=== PATIENT | female | born 1935 | race Caucasian/White ===

== ENCOUNTER 2016-07-10 06:19 | Inpatient (IN) | payer MEDICARE, OTHER ==
[2016-07-10] VITALS (52 sets, daily range): BP systolic 91–119; BP diastolic 45–90; PULSE 69–86; RESP 11–25; TEMP 97.8; Ht 152.4 cm; Wt 64.4 kg
[~2016-07-10] VITALS: Ht 152.4 cm; Wt 64.4 kg
[~2016-07-10 06:19] MED LIST: ASPI81TA3 PO; ATOR10TA65 PO; CLOP75TA27 PO; DILT30TA30 PO; ERGO500037 PO; ESOM40SU PO; FER325 PO; FURO40TA4 PO; HYDR-906 PO; IPRA4AER INHALATION; ISOS30TA5 PO; LEVO500T72 PO; LORA0.5T PO; MAGN400T28 PO; NEPH PO; RANI300T PO; VIT1CAPS15 PO
[2016-07-10] MEDS ORDERED: SODIUM CHLORIDE 0.9% 1L BAG IV* STA (06:30)
[2016-07-10] MEDS ORDERED: ALBUTEROL/IPRATROPIUM (NEB) 3 ML AMP HHN STA (06:36)
[2016-07-10] MEDS ORDERED: PROPOFOL 100 ML IV SCH (07:00)
[2016-07-10] MEDS ORDERED: SUCCINYLCHOLINE CHLORIDE 100 MG/5 ML SYG IV ONE (07:00)
[2016-07-10] MEDS ORDERED: MIDAZOLAM 1 MG/ML 5 ML INJ IV ONE (07:00)
[2016-07-10] MEDS ORDERED: PROPOFOL 100 ML IV ONE (07:00)
[2016-07-10 07:07] LABS: HEMATOCRIT 32.9 % (37.0-47.0); HEMOGLOBIN 10.8 g/dl (12.0-16.0); MEAN CORPUSCULAR HEMOGLOBIN 33.6 pg (29.0-33.0); MEAN CORPUSCULAR HGB CONC 32.7 g/dl (32.0-37.0); MEAN CORPUSCULAR VOLUME 102.9 fl (82.0-101.0); MEAN PLATELET VOLUME 8.4 fl (7.4-10.4); PLATELET COUNT 256 10^3/UL (140-440); RED CELL DISTRIBUTION WIDTH 13.5 % (11.5-14.5); UNCORRECTED WBC 15.2 10^3/ul (4.8-10.8); WHITE BLOOD COUNT 15.2 10^3/ul (4.8-10.8)
[2016-07-10 07:13] LABS: CONDITION 1; LH ANALYZER COMMENTS 1
[2016-07-10 07:22] LABS: INR 1.08; PT RATIO 1.1
[2016-07-10 07:23] LABS: PARTIAL THROMBOPLASTIN TIME 30.5 Sec (25.0-35.0)
[2016-07-10 07:35] LABS: POTASSIUM 4.7 mmol/L (3.5-5.1)
[2016-07-10 07:37] LABS: ALBUMIN/GLOBULIN RATIO 1.08; BILIRUBIN,INDIRECT 0.1 mg/dl (0-1.1); BILIRUBIN,TOTAL 0.1 mg/dl (0.2-1.3); CREATININE 1.96 mg/dl (0.44-1.00); TOTAL PROTEIN 7.7 g/dl (6.1-8.1)
[2016-07-10 07:38] LABS: CALCIUM 8.9 mg/dl (8.4-10.2)
[2016-07-10] MEDS ORDERED: CEFEPIME 2GM/50 ML (PMX) 50 ML IVPB STA (07:42)
[2016-07-10] MEDS ORDERED: NORepinephrine 8MG/250 ML (PMX 250 ML IV STA (07:42)
[2016-07-10 07:49] LABS: TROPONIN-I 0.024 ng/ml (0.00-0.12)
--- NOTE | 2016-07-10 07:54 | RADRPT ---
PROCEDURE: XR Chest. CLINICAL INDICATION: Intubated TECHNIQUE: An AP view of the chest was obtained. COMPARISON: Chest x-ray dated 05/20/2016 FINDINGS: Endotracheal tube tip is 2.2 cm above the cathy. There is prominence of the interstitial markings. No pleural effusion or pneumothorax is seen. The re is an ill-defined nodular density in the right lower lobe. The cardiomediastinal silhouette is m ildly enlarged . Calcifications are seen within the aortic arch. The osseous structures demonstrate senescent changes. IMPRESSION: 1. Mild prominence of the interstitial markings, may reflect mild underlying interstitial edema or chronic lung changes. No significant interval change. 2. Ill-defined nodular density in the right lower lobe, not present on the prior examination from 1 07/21/2015. If findings persist on follow-up imaging, a CT of the chest can be performed for further evaluation. 3. Mild cardiomegaly and aortic atherosclerosis. 4. Endotracheal tube tip 2.2 cm above the cathy. RPTAT: HH .No Marina MD, MD Date Time Electronically viewed and signed by .No Marina MD, on 07/10/2016 07:54 .G/
[2016-07-10] MEDS ORDERED: VANCOMYCIN 1 GM (PMX) 250 ML IVPB ONE (08:00)
[2016-07-10 08:07] LABS: D-DIMER 782.33 ng/ml (<460)
[2016-07-10 08:36] LABS: ADD UMIC YES; URINE BILIRUBIN (Dip) NEGATIVE (NEGATIVE); URINE BLOOD (Dip) 3+ (NEGATIVE); URINE COLOR LT. YELLOW (YELLOW); URINE GLUCOSE (Dip) NEGATIVE (NEGATIVE); URINE KETONES (Dip) NEGATIVE (NEGATIVE); URINE LEUKOCYTE ESTERASE (Dip) NEGATIVE (NEGATIVE); URINE NITRITE (Dip) NEGATIVE (NEGATIVE); URINE TOTAL PROTEIN (Dip) 2+ (NEGATIVE); URINE UROBILINOGEN (Dip) 0.2 E.U./dL (0.1-1.0)
[2016-07-10 09:53] LABS: AADO2 Arterial 105.5 mmHg (7.0-24.0); Arterial Base Excess -6.8 mmol/L (-3.0-3); Arterial COHb 0.3 % (0.0-3.0); Arterial Fraction of Oxyhgb 98.9 % (93.0-99.0); Arterial HCO3 15.2 mmol/L (22.0-26.0); Arterial MetHb 0.1 % (0.0-1.5); MODE VENT - AC
--- NOTE | 2016-07-10 10:43 | RADRPT ---
PROCEDURE: CT Brain without contrast. CLINICAL INDICATION: Neurologic deficit TECHNIQUE: A CT of the brain was performed on multidetector high-resolution CT scanner utilizing a xial sections from the skull base through the vertex without contrast. One or more of the following dose reduction techniques were used: Automated exposure control, Adjustment of the mA and/or kV acc ording to patient size, and/or use of iterative reconstruction technique. DOSE: CTDI = 42 mGy and the DLP = 720 mGy-cm. COMPARISON: None available FINDINGS: No acute intracranial hemorrhage, significant mass effect or midline shift. Patchy hypoattenuation o f the cerebral white matter is age indeterminate but may represent moderate subacute to chronic micr ovascular ischemic changes. Atherosclerotic calcifications of the cavernous segments of the internal carotid arteries are seen. Prominence of the cortical sulci and ventricles are related to mild cer ebral volume loss. Extensive opacification of the paranasal sinuses with partial opacification of th e right mastoids. Partially imaged endotracheal tube. 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 Partially empty appearance of the sella turcica. IMPRESSION: No acute intracranial hemorrhage or significant mass effect. Moderate subacute to chronic microvascular disease and intracranial atherosclerosis. Extensive opacification of the paranasal sinuses with partial opacification of the right mastoids is seen in this intubated patient. 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 RPTAT: AA .Torsten Moe MD, MD Date Time Electronically viewed and signed by .Torsten Moe MD, MD on 07/10/2016 10:43 .T/
--- NOTE | 2016-07-10 10:58 | ERA ---
ER Documentation Chief Complaint Date/Time DATE: 07/10/16 TIME: 10:49 Chief Complaint URI/flu sx's x few days, decreased RR, assist resps w/ BVM per ems HPI Patient is an 81-year-old female whose family called paramedics today because she was complaining of shortness of breath. On their arrival she apparently developed altered mental status and required assisted ventilation. They brought her in with bag valve mask assistance on 100% O2. They could not give us any other information about the history of present illness and there were no family members at the bedside. We immediately set up for intubation. Remainder of the systems were unobtainable. ROS All systems reviewed and are negative except as per history of present illness. Medications Home Meds Active Scripts Albuterol/Ipratropium* (Combivent Respimat*) 20-100 Mcg/Inh - 4 Gm Aer.w.adap, 1 PUFF INHALATION QID, #1 INHALER Prov:JOB BATRES 05/23/16 Diltiazem Hcl* (Cardizem*) 30 Mg Tablet, 30 MG PO Q8 for 30 Days, TAB 3 Refills Prov:RAQUELJOB 05/23/16 Reported Medications Clopidogrel Bisulfate (Clopidogrel) 75 Mg Tablet, 75 MG PO DAILY, #30 TAB 05/20/16 Esomeprazole Magnesium (Nexium) 40 Mg Suspdr.pkt, 40 MG PO AC BREAKFAST 05/20/16 Multivit/Ca Carb/B Cmplx/Fa* (Lindsay-Armando*) 1 Tab Tab, 1 TAB PO DAILY, TAB 05/20/16 Ergocalciferol (Vitamin D2) (VITAMIN D2) 50,000 Unit Capsule, 79880 UNIT PO WEEKLY, CAP 05/20/16 Vit C/Armando Ac/Lut/Copper/Znox (PRESERVISION LUTEIN SOFTGEL) 1 Each Capsule, 1 EACH PO DAILY, CAP 05/20/16 Furosemide* (Furosemide*) 40 Mg Tablet, 40 MG PO DAILY, TAB 05/20/16 Isosorbide Mononitrate* (Isosorbide Mononitrate*) 30 Mg Tab.er.24h, 90 MG PO DAILY, TAB.SA 05/20/16 Ranitidine Hcl* (Ranitidine Hcl*) 300 Mg Tablet, 300 MG PO HS, #30 TAB 05/20/16 Hydrocodone/Acetaminophen ([place]odge 5-325 Tablet) 1 Each Tablet, 1-2 EACH PO Q6 Y for SEVERE PAIN LEVEL 7-10, TAB 05/20/16 Lorazepam* (Lorazepam*) 0.5 Mg Tablet, 0.5 MG PO HS Y for ANXIETY, TAB 05/20/16 Aspirin* (Aspirin* Chew) 81 Mg Tab.chew, 81 MG PO DAILY, TAB.CHEW 05/20/16 Ferrous Sulfate* (Ferrous Sulfate*) 325 Mg Tabec, 325 MG PO BID, TAB 05/20/16 Atorvastatin Calcium (Atorvastatin Calcium) 10 Mg Tablet, 10 MG PO QHS, #30 TAB 05/20/16 Magnesium Oxide* (Magnesium Oxide*) 400 Mg Tablet, 400 MG PO DAILY, TAB 05/20/16 Discontinued Scripts Levofloxacin* (Levaquin*) 500 Mg Tablet, 500 MG PO Q48H for 5 Days, TAB Prov:JOB BATRES F 05/23/16 Allergies Allergies: Coded Allergies: No Known Allergy (Unverified , 01/15/14) PMhx/Soc History of Surgery: Yes (appendectomy, bilateral cataract surgery) Anesthesia Reaction: No Hx Neurological Disorder: No Hx Respiratory Disorders: No (interstitial lung, admitted for Bronchospasm) Hx Cardiac Disorders: Yes (HTN, CAD) Hx Psychiatric Problems: Yes (anxiety) Hx Miscellaneous Medical Probl: Yes (hyperlipidemia) Hx Alcohol Use: No Hx Substance Use: No Hx Tobacco Use: No Smoking Status: Unknown if ever smoked FmHx Family History: coronary disease Physical Exam Vitals Vital Signs Date Time Temp Pulse Resp B/P Pulse Ox O2 Delivery O2 Flow Rate FiO2 07/10/16 11:00 81 17 90/65 100 Mechanical Ventilator 07/10/16 10:30 87 15 100/45 100 Mechanical Ventilator 07/10/16 10:00 87 14 100/66 100 Mechanical Ventilator 07/10/16 09:30 97.8 90 15 110/75 100 Mechanical Ventilator 07/10/16 09:00 97.8 91 17 120/77 100 Mechanical Ventilator 07/10/16 08:40 100 18 100/75 100 Mechanical Ventilator 07/10/16 08:00 96 17 82/52 100 Mechanical Ventilator 07/10/16 07:43 91 24 82/52 Room Air 07/10/16 07:30 90 14 100 100 07/10/16 06:30 130 14 100 100 07/10/16 06:29 97.6 138 20 143/89 99 Physical Exam Const: [] Well-developed well-nourished female on the bed with bag valve mask assisted ventilations Head: Atraumatic normocephalic Eyes: Normal Conjunctiva ENT: Normal External Ears, Nose and Mouth. Neck: Trachea midline Resp: Diffuse wheezing, poor inspiratory effort, agonal breathing noted Cardio: Regular rate and rhythm, no murmurs Abd: Soft, non tender, non distended. Normal bowel sounds Skin: No petechiae or rash Ext: Mild acrocyanosis, NO edema Neur: GCS equals E1, M4, V 1 this was prior to intubation Result Diagram: 07/10/1662107/10/16621 Results 24 hrs Laboratory Tests Test 07/10/16 06:22 07/10/16 06:30 07/10/16 07:30 07/10/16 08:35 Activated Partial Thromboplast Time 30.5Sec Alanine Aminotransferase (ALT/SGPT) 24IU/L Albumin 4.0g/dl Albumin/Globulin Ratio 1.08 Alkaline Phosphatase 58IU/L Anion Gap 27 Aspartate Amino Transf (AST/SGOT) 57IU/L Basophils # 10^3/ul Basophils % % Blood Morphology Comment Blood Urea Nitrogen 26mg/dl Calcium Level 8.9mg/dl Carbon Dioxide Level 17mmol/L Chloride Level 105mmol/L Creatinine 1.96mg/dl D-Dimer 782.33ng/ml D-Dimer Comment Direct Bilirubin 0.00mg/dl Eosinophils # 10^3/ul Eosinophils % % Globulin 3.70g/dl Glucose Level 227mg/dl Hematocrit 32.9% Hemoglobin 10.8g/dl INR International Normalized Ratio 1.08 Indirect Bilirubin 0.1mg/dl Lactic Acid Level 10.6mmol/L 2.2mmol/L Lymphocytes # 10^3/ul Lymphocytes % % Mean Corpuscular Hemoglobin 33.6pg Mean Corpuscular Hemoglobin Concent 32.7g/dl Mean Corpuscular Volume 102.9fl Mean Platelet Volume 8.4fl Monocytes # 10^3/ul Monocytes % % Neutrophils # 10^3/ul Neutrophils % % Nucleated Red Blood Cells # 10^3/ul Nucleated Red Blood Cells % /100WBC Platelet Count 10562^3/UL Potassium Level 4.7mmol/L Prothrombin Time 14.0Sec Prothrombin Time Ratio 1.1 Red Blood Count 3.2010^6/ul Red Cell Distribution Width 13.5% Sodium Level 144mmol/L Total Bilirubin 0.1mg/dl Total Protein 7.7g/dl Troponin I 0.024ng/ml White Blood Count 15.210^3/ul Arterial Blood HCO3 15.2mmol/L Arterial Blood Base Excess -6.8mmol/L Arterial Blood Oxygen Saturation 99.3mmHG Harish Test N/A Arterial Blood Gas Puncture Site Right Brachial Arterial Blood Carboxyhemoglobin 0.3% Arterial Blood Date Drawn 07/10/2016 9:40:24 AM Arterial Blood Methemoglobin 0.1% Arterial Blood pCO2 (Temp correct) 21.6mmhg Arterial Blood pH (Temp corrected) 7.466 Arterial Blood pO2 (Temp corrected) 585.9mmHG Blood Gas A-a O2 Differential 105.5mmHg Blood Gas Actual Respiration Rate 14 Blood Gas Low PEEP Setting 5.0cmH2O Blood Gas Modality VENT - AC Blood Gas Notified Time 07/10/2016 9:53:21 AM Blood Gas Notified Whom JLD Blood Gas Respiration Rate 14.0 Blood Gas Specimen Source Blood arterial Blood Gas Temperature 37.0C Blood Gas Tidal Volume 500.0mL FiO2 100.0% Oxyhemoglobin Percent 98.9% Total Hemoglobin 11.0g/dl Urine Amorphous Urates MODERATE Urine Bilirubin NEGATIVE Urine Clarity CLEAR Urine Color LT. YELLOW Urine Glucose NEGATIVE% Urine Hemoglobin 3+ Urine Ketones NEGATIVE Urine Leukocyte Esterase NEGATIVE Urine Microscopic RBC 10-25/HPF Urine Microscopic WBC NONE SEEN/HPF Urine Nitrite NEGATIVE Urine Specific [place] >=1.030 Urine Total Protein 2+ Urine Urobilinogen 0.2 E.U./dL Urine pH 5.0 Test 07/10/16 10:30 Lactic Acid Level 4.2mmol/L Current Medications Medications (Trade) Dose Ordered Sig/Renetta Route PRN Reason Start Time Stop Time Status Last Admin Dose Admin Sodium Chloride (NS) 2,480 ml BOLUS OVER 2 HOURS STAT IV* 07/10/16 06:30 07/10/16 06:36 DC 07/10/16 06:40 Midazolam HCl (Versed) 4 mg ONCE ONCE IV 07/10/16 07:00 07/10/16 07:01 DC Succinylcholine Chloride 150 mg 150 mg ONCE ONCE IV 07/10/16 07:00 07/10/16 07:01 DC Propofol 100 ml @ 0 mls/hr TITRATE ONCE IV 07/10/16 07:00 07/10/16 07:01 DC 07/10/16 07:06 Propofol (Diprivan) 100 ml @ 1.59 mls/hr PER PROTOCOL IV 07/10/16 07:00 Albuterol/ Ipratropium 3 ml 3 ml ONCE STAT HHN 07/10/16 06:36 07/10/16 06:41 DC 07/10/16 07:30 Norepinephrine 250 ml @ 7.5 mls/hr ONCE STAT IV 07/10/16 07:42 07/11/16 17:01 07/10/16 08:05 Cefepime HCl 50 ml @ 100 mls/hr ONCE STAT IVPB 07/10/16 07:42 07/10/16 08:11 DC 07/10/16 08:04 Vancomycin HCl 250 ml @ 125 mls/hr ONCE ONCE IVPB 07/10/16 08:00 07/10/16 09:59 DC 07/10/16 08:05 Sodium Chloride (NS) 1,000 ml @ 100 mls/hr Q10H IV 07/10/16 11:25 UNV Ondansetron HCl (Zofran Inj) 4 mg Q6H PRN IV NAUSEA AND/OR VOMITING 07/10/16 11:30 UNV Albuterol (Ventolin Hfa) 4 puff Q4H RESP THERAPY INH 07/10/16 13:00 UNV Ipratropium [place] (Atrovent Hfa) 4 puff Q4H RESP THERAPY INH 07/10/16 13:00 UNV Albuterol (Ventolin Hfa) 4 puff Q2H RESP THERAPY PRN INH SHORTNESS OF BREATH 07/10/16 11:30 UNV Ipratropium [place] (Atrovent Hfa) 4 puff Q2H RESP THERAPY PRN INH SHORTNESS OF BREATH 07/10/16 11:30 UNV Acetaminophen (Tylenol Liquid) 650 mg Q6H PRN PO PAIN LEVEL 1-3 OR FEVER 07/10/16 11:30 UNV Acetaminophen (Tylenol Supp) 650 mg Q4H PRN NM PAIN LEVEL 1-3 OR FEVER 07/10/16 11:30 UNV Docusate Sodium (Colace) 100 mg Q12H PRN PO CONSTIPATION 07/10/16 11:30 UNV Magnesium Hydroxide (Milk Of Mag) 30 ml DAILY PRN PO CONSTIPATION 07/10/16 11:30 UNV Bisacodyl (Dulcolax Supp) 10 mg DAILY PRN NM CONSTIPATION 07/10/16 11:30 UNV Pantoprazole (Protonix Iv) 40 mg DAILY@06 IV 07/11/16 06:00 UNV Heparin Sodium (Porcine) 5000 unit 5,000 unit Q8 SC 07/10/16 14:00 UNV Cefepime HCl (Maxipime 2gm/50 ml (Pmx)) 50 ml @ 100 mls/hr Q12 IVPB 07/10/16 21:00 UNV Vancomycin HCl VANCOMYCIN PER PHARMACY PER PROTOCOL XX 07/10/16 12:00 UNV Propofol 100 ml @ 1.59 mls/hr PER PROTOCOL IV 07/10/16 12:00 UNV Norepinephrine (Levophed) 250 ml @ 1.875 mls/ hr TITRATE IV 07/10/16 12:00 UNV Procedures/MDM Endotracheal Intubation by me: Pre assessment performed. See preceding note for details. Pre-oxygenation performed with 100% oxygen RSI: Performed w/o complication or hypoxic events. Medications as ordered. Blade: GLIDOSCOPE ET Tube: 7.5] cm Depth: 22] cm at the lip Intubation confirmed by colorimetric CO2, equal breath sounds, quiet over the stomach. Chest X-ray 1V Interpreted by me: 3] cm above the cathy ET tube. Normal soft tissue, No pneumothorax. Central Line Placement by me: Patient consented, sterilely draped, full prep, gown, glove, mask, time out performed. Anesthesia: 1% lidocaine locally Location: Right subclavian Device: Multiple lumen Technique: Seldinger technique. Secured with suture. Results: Venous return from all ports with easy saline flush. No complications. Guide wire retrieved and disposed of. Chest X-ray 1V Interpreted by me: Central line in SVC, Normal soft tissue, No evidence of pneumothorax. During her ER stay the patient's blood pressure drifted downwards. She had to be started on Levophed. Currently her blood pressures at is 100/45. She is sedated on propofol at this time. Her family is at the bedside. They have been updated of her medical condition. Critical care time to include 1 hour. This does not include procedures. 10:45 AM: I consult the doctor raquel to admit the patient to the ICU. Further care and treatment will be directed per Dr. batres. 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
--- NOTE | 2016-07-10 11:17 | RADRPT ---
PROCEDURE: CT Chest without contrast. CLINICAL INDICATION: Shortness of breath. TECHNIQUE: Helical axial sections were obtained through the chest without intravenous contrast enh ancement. Coronal and sagittal reformatted images were obtained from the axial source images. Total exam DLP is 541.95 mGy-cm. CTDIvol is 14.61 mGy. One or more of the following dose reduction ami hniques were used: Automated exposure control, adjustment of the mA and/or kV according to patient s ize, use of iterative reconstruction technique. COMPARISON: Chest x-ray done earlier the same day which demonstrated an ill-defined nodular densi ty in the right lower lobe FINDINGS: There is consolidation in the right upper lobe posteriorly consistent with pneumonia. There is exte nsive bronchial wall thickening bilaterally at the lung bases consistent with bronchitis. Mild righ t middle lobe air space disease is present consistent with pneumonia. There is mild atelectasis at the lung bases posteriorly. The lungs are otherwise clear. There is no pulmonary nodule or mass lesion. There is no nodule at the right lung base as seen on pr ior chest x-ray. There is a new right subclavian vein catheter with the tip in the cavoatrial junction region. The e ndotracheal tube is in satisfactory position with the tip 1.8 cm above the cathy. There is no mediastinal, hilar, axillary, supraclavicular, or internal mammary lymphadenopathy. The thoracic aorta is not dilated. There is calcification in the aorta consistent with atherosclero sis. The heart is enlarged. There is coronary artery calcification. There is no pleural effusion or pericardial effusion. Images through the upper abdomen demonstrate normal visualized portions of the liver, spleen, and ad renals. There are degenerative changes of the spine. There is no fracture or lytic lesion. IMPRESSION: 1. Pneumonia in the posterior segment of the right upper lobe. 2. Atelectasis at the lung bases posteriorly. 3. Extensive bronchial wall thickening bilaterally at the lung bases consistent with bronchitis. 4. Mild pneumonia in the right middle lobe. 5. No nodule in the right lower lobe. The density seen at this site on prior chest radiograph may have been due to prominent end of the fifth rib. 6. Right subclavian vein catheter and endotracheal tube in satisfactory position. 7. Atherosclerosis. 8. Cardiomegaly and coronary artery calcification. 9. Degenerative changes of the spine. RPTAT: QQ .Teja Wilde MD, MD Date Time Electronically viewed and signed by .Teja Wilde MD, MD on 07/10/2016 11:16 .R/
[2016-07-10] MEDS ORDERED: ACETAMINOPHEN 650MG/20.3ML CUP PO PRN (11:30)
[2016-07-10] MEDS ORDERED: IPRATROPIUM (HFA) 12.9 GM INHALER INH PRN (11:30)
[2016-07-10] MEDS ORDERED: BISACODYL 10 MG SUPP PR PRN (11:30)
[2016-07-10] MEDS ORDERED: ACETAMINOPHEN 650 MG SUPP PR PRN (11:30)
[2016-07-10] MEDS ORDERED: ONDANSETRON 4 MG INJ IV PRN (11:30)
[2016-07-10] MEDS ORDERED: ALBUTEROL HFA 8 GM INHALER INH PRN (11:30)
[2016-07-10] MEDS ORDERED: MAGNESIUM HYDROXIDE 30ML CUP PO PRN (11:30)
[2016-07-10] MEDS ORDERED: DOCUSATE SODIUM 100 MG CAP PO PRN (11:30)
[2016-07-10] MEDS ORDERED: VANCOMYCIN IV PER PHARMACY XX SCH (12:00)
[2016-07-10] MEDS ORDERED: NORepinephrine 8MG/250 ML (PMX 250 ML IV SCH (12:00)
[2016-07-10] MEDS: SOD CHLORIDE 0.9% 1,000 ML IV SCH ×2 (12:30→21:01)
[2016-07-10] MEDS: PROPOFOL 100 ML IV SCH ×2 (13:00→19:50)
[2016-07-10] MEDS: HEPARIN 5,000 UNIT/0.5 ML SYG SC SCH ×2 (14:41→21:03)
[2016-07-10] MEDS: IPRATROPIUM (HFA) 12.9 GM INHALER INH SCH ×3 (15:41→20:21)
[2016-07-10] MEDS: ALBUTEROL HFA 8 GM INHALER INH SCH ×3 (15:41→20:21)
[2016-07-10 18:12] LABS: CK-MB 6.51 ng/ml (0.0-2.4)
[2016-07-10 18:18] LABS: TROPONIN-I 1.57 ng/ml (0.00-0.12)
--- NOTE | 2016-07-10 19:06 | HP ---
DATE OF ADMISSION: 07/10/2016 PRIMARY CARE PHYSICIAN: Dr. Yannick Norris. PREVIOUS CHIEF CARDIOPULMONARY TECHNOLOGIST: Dr. Landis PREVIOUS CIGAR MAKER: Dr. Grimes. CHIEF COMPLAINT ON ADMISSION: Shortness of breath and dyspnea on exertion. HISTORY OF PRESENT ILLNESS: This is an 81-year-old female, Slovenian speaking, very pleasant at base line, who has a history of coronary artery disease, interstitial lung disease, hypertension, hyperli pidemia, chronic kidney disease, presented to the emergency department with a 5-day history of progr essive respiratory distress. Apparently, the patient has been having ongoing cough which is chronic at this point. She has been having dyspnea on exertion, as she has had less exercise tolerance, ac cording to the family, and this morning she actually called for help because she could not breathe. She was brought to the emergency department where she was found to be in respiratory failure and re quired intubation. Once she was intubated and started on propofol, her blood pressure has been on t he low side, requiring Levophed to be started. Her white blood cell count came back at 15. Building And Construction Manager ry did show chronic kidney disease which is known in this patient and her lactic acid upon arrival w as at 10. Blood cultures were drawn. UA urine cultures taken and Webb catheter placed once she wa s intubated and she is admitted to the intensive care unit. She was started on IV antibiotics alrea dy along with IV fluids per sepsis protocol. She had a chest x-ray done today which did show some c hronic changes, but also ill-defined nodular density in the right lower lobe; therefore, the patient had a CAT scan of the chest without contrast which did confirm pneumonia in the posterior segment o f the right upper lobe, bronchitis, probably acute on chronic, and no signs of pleural effusion. Th e patient was maintained on IV antibiotics at this point. She is on very small dose of labor fed i n the intensive care unit and on 30% FIO2 on the vent and seems to have stabilized since admission. ALLERGIES: NO KNOWN ALLERGIES. PAST MEDICAL HISTORY: Include: 1. Bronchitis, likely acute on chronic. 2. Coronary artery disease. 3. Chronic kidney disease stage III. 4. Interstitial lung disease. 5. Hypertension. 6. Hyperlipidemia. 7. Gastroesophageal reflux disease. 8. Anxiety disorder. PAST SURGICAL HISTORY: 1. Status post appendectomy more than 30 years ago. 2. Status post bilateral cataract surgeries remotely. REVIEW OF SYSTEMS: Unable to obtain from the patient, she is currently intubated. SOCIAL HISTORY: The patient lives with family. She is actually very active at baseline. She is no t oxygen dependent, according to the family. She ambulates without assistive device, but does have lately more noticeable decreased exercise tolerance, according to the family. There is no history o f tobacco use and no history of alcohol use. OUTPATIENT MEDICATIONS: Include: 1. Combivent Respimat 1 puff inhaled q.i.d. 2. Plavix 75 mg p.o. daily. 3. Ferrous sulfate 325 mg p.o. b.i.d. 4. Atorvastatin 10 mg p.o. at bedtime. 5. Cardizem 30 mg p.o. q.8h. 6. Isosorbide mononitrate 90 mg p.o. daily. 7. Aspirin 81 mg daily. 8. [place] 5/325 one to 2 tabs p.o. every 6 hours p.r.n. pain. 9. Lorazepam 0.5 mg p.o. at bedtime p.r.n. anxiety. 10. Furosemide 40 mg daily. 11. Nexium 40 mg p.o. q.a.c. 12. Magnesium oxide 400 mg p.o. daily. 13. Ranitidine 300 mg p.o. at bedtime. 14. Vitamin D2, 5000 units p.o. q. weekly. 15. Lindsay-Armando 1 tab p.o. daily. 16. PreserVision soft gel 1 tab p.o. daily. PHYSICAL EXAMINATION: VITAL SIGNS: Temperature is 98.4, heart rate of 82, sinus rhythm, respiratory rate 14. GENERAL: The patient is satting 100%, FIO2 of 30%. Currently, respiratory rate of 20, blood pressu re is 92/45. She is on 3 mcg of Levophed. GENERAL: She is a sedated and intubated, in no acute distress. HEENT: Pupils are equally round and reactive to light. Extraocular muscles are intact. Anicteric sclerae. NECK: No JVD, no thyromegaly noted. HEART: Regular rate and rhythm. No murmur, rubs, or gallops. LUNGS: Clear to auscultation bilaterally. ABDOMEN: Soft, nontender, nondistended. Bowel sounds are present. LUNGS: The patient has decreased breath sounds mostly at the bases, but currently with the vent on, she has pretty good air movement. No crackles heard, but she does have expiratory wheezes that can be heard bilaterally. EXTREMITIES: No edema, clubbing or cyanosis. Webb catheter is in place with clear yellow urine. NEUROLOGIC: Patient is sedated, currently on the ventilator. LABORATORY DATA: White blood cell count is 15.2, hemoglobin 10.8, hematocrit 32.9, platelet count o f 266. ABG on the vent, upon arrival was 100% FIO2 by then showed a pH of 7.466, pCO2 of 21 and pO2 of 585. Chemistry with a sodium of 144, potassium 4.7, chloride 105, bicarbonate 17, BUN 26, creat inine 1.96, glucose 227, her first lactate was 10.6, second one 2.2 and then 4.2, calcium of 8.9, to lizeth bilirubin 0.1, AST 57, ALT 24, alkaline phosphatase 58. Troponin 0.024. Total protein 7.7, alb umin 4.0. INR is 1.08, PT 14, PTT 30.5 with a D-dimer of 782. Urinalysis is fairly benign. RADIOLOGICAL DATA: 1. Chest x-ray showed mild prominence of interstitial markings, possibly consistent with chronic kumar ng changes, no interval changes. Ill-defined nodular density in the right lower lobe, mild cardiome chapincito and aortic atherosclerosis. ET tube in place. 2. CAT scan of the brain shows no acute intracranial hemorrhage or significant mass effect. 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 3. CAT scan of the chest showed pneumonia in the posterior segment of the right upper lobe, atelect asis at the lung base posteriorly, extensive bronchial wall thickening bilaterally at the lung base consistent with bronchitis, likely chronic, mild pneumonia in the right middle lobe. No nodules in the right lower lobe, right subclavian vein catheter in place, atherosclerosis, cardiomegaly and deg enerative changes of the spine. Again, the patient in sinus rhythm on telemetry. ASSESSMENT AND PLAN: This is an 81-year-old female with: 1. Acute respiratory failure with known interstitial lung disease and previous episodes of bronchit is. At this time, she does have a right middle lobe and right lower lobe pneumonia which probably p recipitated her respiratory failure. At this point, she is intubated. She is actually stable at th is point. She is also being covered for sepsis in setting of pneumonia with IV antibiotics along wi th IV fluids and vent support. Dr. Landis from pulmonary has been consulted. 2. Coronary artery disease. Her cardiac enzymes are negative x1. Second set of cardiac enzymes is pending which is more than 8 hours later. We will continue her cardiac medication at this point. An NG tube will be placed so that she can get her antiplatelet therapy. Due to the hypotension, she was noted to have especially after intubation and started on propofol, the patient is off all antihy pertensive medication; therefore, her beta blockers and nitrites are on hold. 3. Hypertension, currently with mild hypotension in setting of pneumonia and post-intubation. Mague nue Levophed for blood pressure support. 4. Hyperlipidemia. Continue statin therapy. Check fasting lipid panel. 5. Chronic kidney disease stage III, renal function a little better than previous admission. Will continue to monitor at this point. 6. Interstitial lung disease. Continue MDI and bronchodilators while being intubated. 7. Gastroesophageal reflux disease. Continue proton pump inhibitors. 8. Lactic acidosis in setting of sepsis and respiratory failure. Continue to trend. The patient i s on IV fluids to be continued and her volume status should be monitored closely. PROPHYLAXIS: Patient already on proton pump inhibitors for GI prophylaxis and heparin subq for DVT prophylaxis. DISPOSITION: She is admitted to the intensive care unit intubated at this point. Hopefully, we andrez l be able to be wean her off the ventilator in the next few days once she is more stable. Dictated By: JOB GARCÍA MD NK/NTS Conf#: [id number] DID#: [id number] CC: MEHNAZ LANDIS MD; Yannick Norris MD;*EndCC*
[2016-07-10] MEDS: FERROUS SULFATE (EC) 325 MG TAB PO SCH (20:31)
[2016-07-10] MEDS: ATORVASTATIN 10 MG TAB PO SCH (20:31)
[2016-07-11] VITALS (54 sets, daily range): BP systolic 86–162; BP diastolic 52–114; PULSE 74–138; RESP 11–32
[2016-07-11] MEDS: IPRATROPIUM (HFA) 12.9 GM INHALER INH SCH ×6 (01:27→20:36)
[2016-07-11] MEDS: ALBUTEROL HFA 8 GM INHALER INH SCH ×6 (01:27→20:37)
[2016-07-11] MEDS: PROPOFOL 100 ML IV SCH ×3 (03:47→18:48)
[2016-07-11 05:02] LABS: BASOPHILS % 0.2 % (0.0-2.0); EOSINOPHILS % 0.1 % (0.0-7.0); HEMATOCRIT 28.9 % (37.0-47.0); HEMOGLOBIN 9.6 g/dl (12.0-16.0); LYMPHOCYTES # 1.7 10^3/ul (0.8-2.9); MEAN CORPUSCULAR HEMOGLOBIN 33.6 pg (29.0-33.0); MEAN CORPUSCULAR HGB CONC 33.3 g/dl (32.0-37.0); MEAN CORPUSCULAR VOLUME 100.8 fl (82.0-101.0); MEAN PLATELET VOLUME 8.1 fl (7.4-10.4); MONOCYTE # 0.9 10^3/ul (0.3-0.9); MONOCYTES % 8.9 % (0.0-11.0); NEUTROPHIL # 7.5 10^3/ul (1.6-7.5); NEUTROPHILS % 73.8 % (39.0-77.0); PLATELET COUNT 158 10^3/UL (140-440); RED BLOOD COUNT 2.86 10^6/ul (4.20-5.40); RED CELL DISTRIBUTION WIDTH 13.3 % (11.5-14.5); UNCORRECTED WBC 10.2 10^3/ul (4.8-10.8); WHITE BLOOD COUNT 10.2 10^3/ul (4.8-10.8)
[2016-07-11] MEDS: SOD CHLORIDE 0.9% 1,000 ML IV SCH ×2 (05:51→18:48)
[2016-07-11] MEDS: PANTOPRAZOLE 40 MG INJ IV SCH (05:51)
[2016-07-11] MEDS: HEPARIN 5,000 UNIT/0.5 ML SYG SC SCH (05:52)
[2016-07-11 06:27] LABS: CONDITION 1
[2016-07-11 06:34] LABS: ALBUMIN 2.9 g/dl (3.3-4.9)
[2016-07-11 06:35] LABS: POTASSIUM 4.5 mmol/L (3.5-5.1)
[2016-07-11 06:37] LABS: CREATININE 1.62 mg/dl (0.44-1.00)
[2016-07-11 06:38] LABS: CALCIUM 7.6 mg/dl (8.4-10.2); TOTAL PROTEIN 5.8 g/dl (6.1-8.1)
[2016-07-11 09:29] LABS: MAGNESIUM 2.1 mg/dl (1.7-2.5); PHOSPHORUS 3.4 mg/dl (2.5-4.9)
[2016-07-11] MEDS: FERROUS SULFATE (EC) 325 MG TAB PO SCH ×2 (09:31→20:43)
[2016-07-11] MEDS: CEFEPIME 2GM/50 ML (PMX) 50 ML IVPB SCH (09:31)
[2016-07-11] MEDS: CLOPIDOGREL 75 MG TAB PO SCH (09:31)
[2016-07-11] MEDS: MULTIVIT/CA CARB/B CMPLX/FA TAB PO SCH (09:31)
[2016-07-11] MEDS: ASPIRIN 81 MG TAB PO SCH (09:31)
--- NOTE | 2016-07-11 10:37 | PN ---
Date/Time of Note Date/Time of Note DATE: 07/11/16 TIME: 10:23 Assessment/Plan VTE Prophylaxis VTE Prophylaxis Intervention: heparin Lines/Catheters IV Catheter Type (from Rust): Saline Lock Urinary Cath still in place: Yes Reason Cath still needed: other (indicate) (monitor UOP ) Assessment/Plan Assessment/Plan 81-year-old female with: 1. Acute respiratory failure with known interstitial lung disease and previous episodes of bronchitis, admitted with RML and RLL pneumonia which probably precipitated her respiratory failure. Better today and on CPAP trial On IV Abx and followed by Boby from pulmonary. 2. Coronary artery disease. Second set of cardiac enzymes positive. Trend CE today 2D echo pending Dr Grimes consulted Continue current cardiac medication at this point. Resume Bblockers 3. Hypertension, resume meds as off Levo now 4. Hyperlipidemia. Continue statin therapy. Lipid panel done 5. Chronic kidney disease stage III, renal function keeps improving. Continue to monitor daily. 6. Interstitial lung disease. Continue MDI and bronchodilators while being intubated. on CPAP trial, ? need for steroids if bronchospasm or difficulty extubated. 7. Gastroesophageal reflux disease. Continue proton pump inhibitors. 8. Lactic acidosis in setting of sepsis and respiratory failure. Resolved so far Continue IV fluids decrease to 75 cc/hr Continue IV abx for Pneumonia PROPHYLAXIS: Patient already on proton pump inhibitors for GI prophylaxis and heparin subq for DVT prophylaxis. DISPOSITION: ICU care, CPAP trial today. Subjective 24 Hr Interval Summary Free Text/Dictation Patient failed CPAP trial this AM No complaints otherwise CE elevated this AM and cardiology consulted renal function improving and lactic acid wnl Exam/Review of Systems Vital Signs Vitals Vital Signs Date Time Temp Pulse Resp B/P Pulse Ox O2 Delivery O2 Flow Rate FiO2 07/11/16 08:00 86 07/11/16 07:30 14 96/63 99 Mechanical Ventilator 07/11/16 05:37 30 07/11/16 04:00 98.4 Intake and Output 07/10/16 07/10/16 07/11/16 15:00 23:00 07:00 Intake Total 3129.405 ml 942.88 ml 788.7 ml Output Total 575 ml 250 ml Balance 3129.405 ml 367.88 ml 538.7 ml Exam Constitutional: alert, frail, oriented, other (untubated and sedated ) Respiratory: diminished breath sounds (right lung primarily ), other (on Vent ) Cardiovascular: nl pulses, regular rate and rhythm Gastrointestinal: non-tender, soft Musculoskeletal: nl extremities to inspection Extremities: normal pulses, other (no edema, clubbing or cyanosis ) Neurological: GRUBBER II-XII intact, nl mental status, other (intubated and on CPAP trial this AM ) Results Result Diagram: 07/11/16 0400 07/11/16 0400 Results 24 hrs Laboratory Tests Test 07/10/16 10:30 07/10/16 17:01 07/11/16 04:00 Lactic Acid Level 4.2 *H 1.2 1.1 Creatine Kinase 78 Creatine Kinase Index 8.3 Creatinine Kinase MB (Mass) 6.51 H Troponin I 1.570 *H Alanine Aminotransferase (ALT/SGPT) 32 Albumin 2.9 #L Albumin/Globulin Ratio 1.00 Alkaline Phosphatase 50 Anion Gap 18 #H Aspartate Amino Transf (AST/SGOT) 41 Basophils # 0.0 Basophils % 0.2 Blood Urea Nitrogen 27 H Calcium Level 7.6 L Carbon Dioxide Level 18 L Chloride Level 110 Creatinine 1.62 H Direct Bilirubin 0.00 Eosinophils # 0.0 Eosinophils % 0.1 Globulin 2.90 Glucose Level 115 # Hematocrit 28.9 L Hemoglobin 9.6 L Indirect Bilirubin 0.0 Lymphocytes # 1.7 Lymphocytes % 17.0 Magnesium Level 2.1 Mean Corpuscular Hemoglobin 33.6 H Mean Corpuscular Hemoglobin Concent 33.3 Mean Corpuscular Volume 100.8 Mean Platelet Volume 8.1 Monocytes # 0.9 Monocytes % 8.9 Neutrophils # 7.5 Neutrophils % 73.8 Nucleated Red Blood Cells # 0.0 Nucleated Red Blood Cells % 0.0 Phosphorus Level 3.4 Platelet Count 158 # Potassium Level 4.5 Red Blood Count 2.86 L Red Cell Distribution Width 13.3 Sodium Level 141 Total Bilirubin 0.0 L Total Protein 5.8 #L White Blood Count 10.2 # Medications Medications Current Medications Sodium Chloride (NS) 1,000 ml @ 100 mls/hr Q10H IV Last administered on t 05:51; Admin Dose 100 MLS/HR; Start 07/10/16 at 11:25 Ondansetron HCl (Zofran Inj) 4 mg Q6H PRN IV NAUSEA AND/OR VOMITING; Start 07/10 at 11:30 Acetaminophen (Tylenol Liquid) 650 mg Q6H PRN PO PAIN LEVEL 1-3 OR FEVER; Start 07/10/16 at 11:30 Acetaminophen (Tylenol Supp) 650 mg Q4H PRN WI PAIN LEVEL 1-3 OR FEVER; Start 07/10/16 at 11:30 Docusate Sodium (Colace) 100 mg Q12H PRN PO CONSTIPATION; Start 07/10/16 at 11: 30 Magnesium Hydroxide (Milk Of Mag) 30 ml DAILY PRN PO CONSTIPATION; Start at 11:30 Bisacodyl (Dulcolax Supp) 10 mg DAILY PRN [place] CONSTIPATION; Start 07/10/16 at 11: 30 Pantoprazole (Protonix Iv) 40 mg DAILY@06 IV Last administered on 07/11/16 05: 51; Admin Dose 40 MG; Start 07/11/16 at 06:00 Heparin Sodium (Porcine) 5000 unit 5,000 unit Q8 SC Last administered on 05:52; Admin Dose 5,000 UNIT; Start 07/10/16 at 14:00 Cefepime HCl 50 ml @ 100 mls/hr Q24H IVPB Last administered on 07/11/16 09:31 ; Admin Dose 100 MLS/HR; Start 07/11/16 at 09:00 Norepinephrine 16 mg/Dextrose 500 ml @ 1.875 mls/ hr TITRATE IV ; Start at 13:30 Vancomycin HCl/ Sodium Chloride (Vancocin/NS) 150 ml @ 75 mls/hr Q48H IVPB ; Start 07/12/16 at 08:00 Aspirin (Aspirin) 81 mg DAILY PO Last administered on 07/11/16 09:31; Admin Dose 81 MG; Start 07/11/16 at 09:00 Atorvastatin Calcium (Lipitor) 10 mg QHS PO Last administered on 07/10/16 20:31 ; Admin Dose 10 MG; Start 07/10/16 at 21:00 Clopidogrel Bisulfate (plaVIX) 75 mg DAILY PO Last administered on 07/11/16 09: 31; Admin Dose 75 MG; Start 07/11/16 at 09:00 Ferrous Sulfate (Ferrous Sulfate (Ec)) 325 mg BID PO Last administered on 09:31; Admin Dose 325 MG; Start 07/10/16 at 21:00 Multivit/Ca Carb/ B Cmplx/FA/Prenat (Lindsay-Armando) 1 tab DAILY PO Last administered on 07/11/16t 09:31; Admin Dose 1 TAB; Start 07/11/16 at 09:00 JOB GARCÍA Jul 11, 2016 10:33
[2016-07-11] MEDS: METOPROLOL 25 MG TAB PO SCH ×2 (11:00→20:44)
[2016-07-11 11:53] LABS: CK-MB 4.23 ng/ml (0.0-2.4)
[2016-07-11 11:58] LABS: TROPONIN-I 0.918 ng/ml (0.00-0.12)
--- NOTE | 2016-07-11 12:33 | CONS ---
DATE OF ADMISSION: 07/10/2016 DATE OF CONSULTATION: 07/11/2016 TYPE OF CONSULTATION: Pulmonary. REASON FOR CONSULT: Ventilator management. Thank you, Dr. Monzon, for this consultation. HISTORY OF PRESENT ILLNESS: An 81-year-old lady who originally presented to the emergency room yest erday with increasing shortness of breath, orthopnea, PND. Symptoms have been progressive for 5 day s. Yesterday she had more respiratory distress, requiring emergent intubation, mechanical ventilati on and then initiation of vasopressor support. The patient was found to have leukocytosis. Chest x -ray showed patchy infiltrates. In addition, she had a significant lactic acidosis of 10. The mae ent was given aggressive volume resuscitation, broad-spectrum antibiotics. CT chest was performed, demonstrating bilateral infiltrates, right greater than left. This morning she is awake, alert, florencio ented, on mechanical ventilation, without evidence of respiratory distress. PAST MEDICAL HISTORY: Includes coronary artery disease, chronic kidney disease, questionable inters titial lung disease, hypertension, hyperlipidemia, anxiety disorder. SURGICAL HISTORY: Includes appendectomy and bilateral cataract surgery. SYSTEMS REVIEW: A 12-point review of systems, currently unable to perform. PHYSICAL EXAMINATION: GENERAL: Elderly [place] lady, who opens eyes to voice, not following commands. In no respiratory distress. VITAL SIGNS: Currently afebrile, pulse is 90, blood pressure 95/63, O2 saturation 96% on FIO2 of 30 %. HEENT: Orally intubated. Moist mucous membranes. Pupils are equal and reactive to light. CARDIAC EXAM: S1, S2. No added sounds or murmurs. CHEST: Diminished air entry bilaterally. No rales or wheezes. ABDOMEN: Soft, nontender. No guarding or rebound. EXTREMITIES: No cyanosis, clubbing or edema. NEUROLOGIC: Moves all 4 limbs. No focal deficits. LABORATORY DATA: White count down to 10.2, hemoglobin 9.6, platelets 158. Chemistry: BUN 27, crea tinine 1.62. Troponin elevated at 1.57. Lactic acid now down to 1.1. INR 1.08. ABG, a pH of 7.46 , pCO2 of 21, pO2 of 585. Bicarbonate was 15.2. Urinalysis was unremarkable. Brain CT shows no acute findings. IMPRESSION AND PLAN: 1. Likely community-acquired pneumonia. 2. Hypoxemic respiratory failure. 3. Severe lactic acidosis. 4. Ischemia, likely demand ischemia, with elevated troponin. 5. History of coronary artery disease. The patient will need: 1. Continued broad-spectrum antibiotics. 2. Continue volume resuscitation. 3. CPAP weaning trial this morning. 4. DVT and GI prophylaxis. Dictated By: MEHNAZ BUTT/CHARLES Conf#: [id number] DID#: [id number]
--- NOTE | 2016-07-11 13:44 | CONS ---
DATE OF ADMISSION: 07/10/2016 DATE OF CONSULTATION: 07/11/2016 REASON FOR CONSULTATION: Positive troponin, assess significance, assess for acute coronary syndrome . HISTORY OF PRESENT ILLNESS: Ms. Burnett is an 81-year-old female known to myself per hospital adm issions, primary office patient with a history of coronary artery disease, hypertension and dyslipid emia who initially presented with worsening shortness of breath, dyspnea on exertion times approxima tely 5 to 6 days. In addition, the patient has been having an ongoing cough. The patient upon arri adonay in the emergency department, temperature 97.6, blood pressure 143/89, pulse 130, respiratory rat e 20, saturating 99%. The patient's labs revealed white count 15.2, hemoglobin 10.8, platelet count 256. Sodium 144, potassium 4.7, creatinine 1.96, BUN of 26, AST 27, ALT 24. Lactic acid of 10.6, INR 1.0. UA borderline. The patient underwent a chest x-ray revealing prominent interstitial edmar ngs concerning for interstitial edema, mild cardiomegaly, nodular density in the right lower lobe. The patient had a head CT revealing no acute intracranial hemorrhage or significant mass effect. Mo derate subacute to chronic microvascular disease, intracranial atherosclerosis, extensive calcificat ion of paranasal sinuses and a chest CT that revealed pneumonia in the posterior segment of the righ t upper lobe, atelectasis at lung base, extensive bronchial wall thickening, ____ in the right middl e lobe. The patient subsequently required intubation and initiation of pressor support, admitted to the ICU. Since admit to the ICU, the patient has been weaned off pressor supports, marginals, but stable blood pressures in the 90s. Patient remains intubated and sedated. PAST MEDICAL HISTORY: As above in HPI with the patient having a recent stress test May 2016 r evealing no ischemia and preserved EF greater than 65%. MEDICATIONS CURRENTLY IN HOSPITAL: 1. Imdur 30 mg daily as tolerated. 2. Metoprolol 25 mg p.o. b.i.d. 3. Vancomycin. 4. Cefepime. 5. Aspirin 81 mg daily. 6. Plavix 75 mg daily. 7. Multivitamins. 8. Protonix 40 mg IV daily. 9. Lipitor 10 mg at bedtime. 10. Ferrous sulfate 325 mg p.o. b.i.d. 11. Heparin 5000 subq q.8h. 12. Vancomycin. 13. Atrovent p.r.n. . 14. Albuterol. 15. Colace. 16. Milk of magnesia. 17. IV fluid hydration at 100 mL an hour. ALLERGIES: NO KNOWN DRUG ALLERGIES. SOCIAL HISTORY: No tobacco, ETOH or illicit drug use. FAMILY HISTORY: No history of sudden cardiac or early CAD. REVIEW OF SYSTEMS: As above in HPI. CONSTITUTIONAL: No fevers, chills. PULMONARY: Respiratory failure, status post intubation. GASTROINTESTINAL: Dysphagia. GENITOURINARY: Renal failure. PSYCHIATRIC: No documented psych history. NEUROLOGIC: No documented history of CVA. ENDOCRINE: No documented history of diabetes mellitus. PHYSICAL EXAMINATION: VITAL SIGNS: Temperature of 98.4, blood pressure 96/60, pulse 90, respiratory rate 14, saturating 9 9%. GENERAL: The patient is intubated and sedated. NECK: JVP approximately 8 to 9 cm water. CHEST: Upper airway transmitted rhonchorous sounds. HEART: Regular rate and rhythm. Normal S1, increased S2, I/ systolic murmur, nondisplaced PMI. ABDOMEN: Positive bowel sounds, soft. EXTREMITIES: No pitting edema, 1+ pulses bilaterally, posterior tibial. LABORATORIES: As above in HPI, with most recent from today, sodium 141, potassium 4.5, creatinine o f 1.62. Troponin now positive at 1.57. CK-MB of 6.51. White blood cell count 10.2, hemoglobin 9.6 , platelet count 158. ABG revealing a pH of 7.46, a PaO2 of 585, a pCO2 of 21. IMAGING STUDIES: As above in HPI. No further imaging studies for my review at this time. ECG: Revealed reading concerning for possible sinus tachycardia at 143 with normal axis, poor R-wav e progression to anterior precordial leads, anterior anteroseptal Q's, nonspecific ST-T ____diffuse ly. IMPRESSION: 1. Positive troponin concerning for non-ST elevation myocardial infarction. 2. Abnormal electrocardiogram with anteroseptal Q's. 3. Hypotension, currently improving. 4. History of dyslipidemia. 5. Respiratory failure, status post intubation. 6. Renal failure. 7. Pneumonia. 8. Anemia. 9. Leukocytosis. RECOMMENDATIONS: 1. At this time, would maintain patient on telemetry monitoring to follow rhythm and rate control c losely. 2. Continue the patient's low dose beta nayan as tolerated. 3. Continue the patient's aspirin and Plavix at this time ____and continue to trend the patient's c ardiac enzymes. 4. Follow the patient's 2D echo done today for reassessment of ejection fraction, wall motion and a ny major valve abnormalities. 5. Continue the patient's statin and adjust it according to a fasting lipid panel to be checked. 6. If troponin continues to trend up, we will initiate patient on Lovenox, 1 mg/kg subq. 7. Daily systemic anticoagulation. 8. Continue the patient's antibiotics and follow up all culture data. 9. Will hold the patient's Imdur at this time given marginal blood pressures. Thank you for allowing me to take part in the care of this patient. I will continue to follow very closely with you with further recommendations to be made as patient progresses through her inpatient hospital clinical course. Dictated By: NATHALIE COOPER/CHARLES Conf#: [id number] DID#: [id number] CC: JOB GARCÍA MD;*EndCC*
[2016-07-11 18:08] LABS: CK-MB 3.43 ng/ml (0.0-2.4)
[2016-07-11 18:12] LABS: TROPONIN-I 0.731 ng/ml (0.00-0.12)
--- NOTE | 2016-07-11 19:57 | RADRPT ---
Echocardiogram Report Patient Name: VALENTIN CHAPMAN Gender: Female Date: 1935 Study Date: 11-Jul-2016 Order Make Up Clerk: Corry Arroyo RDCS Location: 115 Ref. Physician: ELOISE GARCÍA Quality: Technically Difficult Study Procedures: Transthoracic echocardiogram with complete 2D, M-Mode, and doppler examination. Indications: Evaluate Left Ventricular function. 2D/M Mode Doppler Measurement Value Normal Ranges Measurement Value Normal Ranges LVIDd 2D 4.2 3.5 - 5.6 cm AV Peak Georgi 1.3 m/sec LVIDs 2D 3.2 2.1 - 4.1 cm AV Peak PG 7.0 mmHg FS 2D 23.9 % LVOT Peak Georgi 0.9 m/sec LVPWd 2D 0.8 0.6 - 1.1 cm LVOT Peak PG 4.0 mmHg IVSd 2D 0.7 0.6 - 1.1 cm MV E Peak Georgi 0.7 m/sec IVS/LVPW 2D 0.9 MV A Peak Georgi 1.1 m/sec AoR Diam 2D 2.6 2.0 - 3.7 cm MV E/A 0.7 LA/Ao 2D 1 0 - 1 MV Decel Time 208 msec EDV 2D 71.5 cm3 MV E/A 0.7 ESV 2D 31.6 cm3 LA Dimen 2D 2.3 2.3 - 4.0 cm Findings Left Ventricle: Normal left ventricular cavity size. Normal left ventricular wall thickness. Moderate left ventricular systolic dysfunction. Ejection fraction is visually estimated at 3540 %. Tissue Doppler/Mitral Doppler indices are consistent with impaired relaxation (Stage I diastolic dysfunction). These segments of the LV are hypokinetic apical septum, Lateral apex, inferior apex segment and anterior apex segment. Right Ventricle: Normal right ventricular size. Left Atrium: The left atrium is normal in size. Right Atrium: The right atrium is normal in size. Mitral Valve: Mitral valve leaflets appear mildly thickened. Mild mitral annular calcification. Trace mitral regurgitation. Aortic Valve: No significant aortic stenosis or insufficiency. Aortic cusps appear mildly calcified. Tricuspid Valve: Normal appearance and function of the tricuspid valve with trace physiologic regurgitation. Pericardium: Normal pericardium with no significant pericardial effusion. Aorta: Normal aortic root. IVC: Inferior vena cava without respiratory collapse, however, patient on ventilator. Conclusions 1.Normal left ventricular cavity size. Normal left ventricular wall thickness. Moderate left ventricular systolic dysfunction. Ejection fraction is visually estimated at 35-40 %. Tissue Doppler/Mitral Doppler indices are consistent with impaired relaxation (Stage I diastolic dysfunction). These segments of the LV are hypokinetic apical septum, Lateral apex, inferior apex segment, mid septum segment, anterior apex segment, Lateral mid segment and inferior mid segment. 2.Mitral valve leaflets appear mildly thickened. Mild mitral annular calcification. Trace mitral regurgitation. 3.Normal appearance and function of the tricuspid valve with trace physiologic regurgitation. Electronically Signed By: Joby Grimes 11-Jul-2016 19:56:38 -0800 Patient Name: VALENTIN CHAPMAN Study Date: 11-Jul-[id number]
[2016-07-11] MEDS: ATORVASTATIN 10 MG TAB PO SCH (21:43)
[2016-07-11] MEDS ORDERED: morphine 2 MG INJ IV PRN (22:00)
[2016-07-12] VITALS (55 sets, daily range): BP systolic 69–133; BP diastolic 50–90; PULSE 65–100; RESP 12–29
[2016-07-12] MEDS: PROPOFOL 100 ML IV SCH ×4 (00:45→19:51)
[2016-07-12] MEDS: IPRATROPIUM (HFA) 12.9 GM INHALER INH SCH ×6 (01:07→21:31)
[2016-07-12] MEDS: ALBUTEROL HFA 8 GM INHALER INH SCH ×6 (01:07→21:31)
[2016-07-12] MEDS: PANTOPRAZOLE 40 MG INJ IV SCH (05:04)
[2016-07-12] MEDS: SOD CHLORIDE 0.9% 1,000 ML IV SCH (05:04)
[2016-07-12 06:06] LABS: CHOL/HDL RATIO 2.9 RATIO
[2016-07-12 06:11] LABS: POTASSIUM 4.1 mmol/L (3.5-5.1)
[2016-07-12 06:13] LABS: CREATININE 1.63 mg/dl (0.44-1.00)
[2016-07-12 06:14] LABS: CALCIUM 7.5 mg/dl (8.4-10.2); MAGNESIUM 2.1 mg/dl (1.7-2.5); PHOSPHORUS 2.7 mg/dl (2.5-4.9)
--- NOTE | 2016-07-12 06:37 | RADRPT ---
PROCEDURE: XR Chest. CLINICAL INDICATION: Pneumonia, CHF TECHNIQUE: An AP view of the chest was obtained. COMPARISON: Chest x-ray and CT chest dated 07/10/2016 FINDINGS: The endotracheal tube tip is approximately 1.7 cm above the cathy. The tip of the enteric tube pr ojects over the left upper quadrant. There is a right subclavian central venous catheter with tip ne ar the cavoatrial junction. There is prominence of the interstitial markings. There is subtle right upper lobe alveolar opaciti es. No pleural effusion or pneumothorax is seen. The cardiomediastinal silhouette is mildly enlarg ed . Calcifications are seen within the aortic arch. The osseous structures demonstrate senescent c hanges. IMPRESSION: 1. Subtle right upper lobe alveolar opacities, better appreciated on prior CT. 2. Mild prominence of the interstitial markings, may reflect mild underlying interstitial edema or chronic lung changes. No significant interval change. 3. Mild cardiomegaly and aortic atherosclerosis. 4. Tubes and lines, as described above. RPTAT: HH .No Marina MD, MD Date Time Electronically viewed and signed by .No Marina MD, on 07/12/2016 06:37 .G/
[2016-07-12 06:38] LABS: BASOPHILS % 0.3 % (0.0-2.0); EOSINOPHILS % 0.2 % (0.0-7.0); HEMATOCRIT 26.2 % (37.0-47.0); HEMOGLOBIN 8.9 g/dl (12.0-16.0); LYMPHOCYTES # 1.8 10^3/ul (0.8-2.9); LYMPHOCYTES % 21.1 % (15.0-51.0); MEAN CORPUSCULAR HEMOGLOBIN 34.4 pg (29.0-33.0); MEAN CORPUSCULAR HGB CONC 34.2 g/dl (32.0-37.0); MEAN CORPUSCULAR VOLUME 100.7 fl (82.0-101.0); MEAN PLATELET VOLUME 8.6 fl (7.4-10.4); MONOCYTE # 0.9 10^3/ul (0.3-0.9); NEUTROPHIL # 5.9 10^3/ul (1.6-7.5); NEUTROPHILS % 68.4 % (39.0-77.0); PLATELET COUNT 147 10^3/UL (140-440); RED CELL DISTRIBUTION WIDTH 13.5 % (11.5-14.5); UNCORRECTED WBC 8.6 10^3/ul (4.8-10.8); WHITE BLOOD COUNT 8.6 10^3/ul (4.8-10.8)
[2016-07-12 07:51] LABS: CONDITION 1
[2016-07-12 07:52] LABS: Allen Test ACCEPTAB; Arterial Base Excess -9.5 mmol/L (-3.0-3); Arterial COHb 0.3 % (0.0-3.0); Arterial Fraction of Oxyhgb 97.7 % (93.0-99.0); Arterial HCO3 13.9 mmol/L (22.0-26.0); Arterial MetHb 0.2 % (0.0-1.5); Arterial Total Hemglobin 10.2 g/dl (12.0-18.0); MODE VENT - AC
[2016-07-12] MEDS ORDERED: VANCOMYCIN 750 MG in SOD CHLORIDE 0.9% 150 ML IVPB SCH (08:00)
[2016-07-12] MEDS: METOPROLOL 25 MG TAB PO SCH ×2 (09:00→11:29)
[2016-07-12] MEDS ORDERED: ISOSORBIDE MONONITRATE(SR)30 MG TAB PO SCH (09:00)
[2016-07-12] MEDS: ASPIRIN 81 MG TAB PO SCH (09:25)
[2016-07-12] MEDS: CEFEPIME 2GM/50 ML (PMX) 50 ML IVPB SCH (09:25)
[2016-07-12] MEDS: MULTIVIT/CA CARB/B CMPLX/FA TAB PO SCH (09:25)
[2016-07-12] MEDS: FERROUS SULFATE (EC) 325 MG TAB PO SCH (09:25)
[2016-07-12] MEDS: CLOPIDOGREL 75 MG TAB PO SCH (09:25)
[2016-07-12] MEDS: ENOXAPARIN 100 MG/ML SYG SC SCH (09:27)
--- NOTE | 2016-07-12 10:20 | CONS ---
Date/Time of Note Date/Time of Note DATE: 07/12/16 TIME: 10:18 Consult Date/Type/Reason Admit Date/Time Jul 10, 2016 at 11:30 Initial Consult Date Type of Consultation: pulmonary Subjective Patient remains stable is morning she tolerated 1 hour of CPAP yesterday before increased work of breathing requiring her to be placed on before meals mechanical ventilation This morning she remains stable sedated on vent. Objective Vital Signs Date Time Temp Pulse Resp B/P Pulse Ox O2 Delivery O2 Flow Rate FiO2 07/12/16 08:00 79 14 113/54 100 Mechanical Ventilator 07/12/16 07:30 97.6 07/12/16 05:42 30 Intake and Output 07/11/16 07/11/16 07/12/16 15:00 23:00 07:00 Intake Total 600.66 ml 654.06 ml 901.76 ml Output Total 560 ml 155 ml Balance 600.66 ml 94.06 ml 746.76 ml PHYSICAL EXAMINATION: GENERAL: Elderly [place] lady, who opens eyes to voice, not following commands. In no respiratory distress. VITAL SIGNS: As above HEENT: Orally intubated. Moist mucous membranes. Pupils are equal and reactive to light. CARDIAC EXAM: S1, S2. No added sounds or murmurs. CHEST: Diminished air entry bilaterally. No rales or wheezes. ABDOMEN: Soft, nontender. No guarding or rebound. EXTREMITIES: No cyanosis, clubbing or edema. NEUROLOGIC: Moves all 4 limbs. No focal deficits. Results/Medications Result Diagram: 07/12/16 0430 07/12/16 0430 Results 24 hrs Laboratory Tests Test 07/11/16 11:18 07/11/16 16:47 07/12/16 04:30 07/12/16 07:00 Creatine Kinase 114 119 Creatine Kinase Index 3.7 2.9 Creatinine Kinase MB (Mass) 4.23 H 3.43 H Troponin I 0.918 *H 0.731 *H Anion Gap 16 Basophils # 0.0 Basophils % 0.3 Blood Urea Nitrogen 27 H Calcium Level 7.5 L Carbon Dioxide Level 16 L Chloride Level 115 H Cholesterol Level 70 L Cholesterol/HDL Ratio 2.9 Creatinine 1.63 H Eosinophils # 0.0 Eosinophils % 0.2 Glucose Level 88 HDL Cholesterol 24 L Hematocrit 26.2 L Hemoglobin 8.9 L LDL Cholesterol, Calculated 2 Lymphocytes # 1.8 Lymphocytes % 21.1 Magnesium Level 2.1 Mean Corpuscular Hemoglobin 34.4 H Mean Corpuscular Hemoglobin Concent 34.2 Mean Corpuscular Volume 100.7 Mean Platelet Volume 8.6 Monocytes # 0.9 Monocytes % 10.0 Neutrophils # 5.9 Neutrophils % 68.4 Nucleated Red Blood Cells # 0.0 Nucleated Red Blood Cells % 0.0 Phosphorus Level 2.7 Platelet Count 147 Potassium Level 4.1 Red Blood Count 2.60 L Red Cell Distribution Width 13.5 Sodium Level 143 Triglycerides Level 222 H White Blood Count 8.6 Arterial Blood HCO3 13.9 L Arterial Blood Base Excess -9.5 L Arterial Blood Oxygen Saturation 98.2 Harish Test ACCEPTAB Arterial Blood Gas Puncture Site Right Radial Arterial Blood Carboxyhemoglobin 0.3 Arterial Blood Date Drawn 07/12/2016 7:38:41 AM Arterial Blood Methemoglobin 0.2 Arterial Blood pCO2 (Temp correct) 23.6 L Arterial Blood pH (Temp corrected) 7.389 Arterial Blood pO2 (Temp corrected) 137.2 H Blood Gas A-a O2 Differential 49.0 H Blood Gas Actual Respiration Rate 14 Blood Gas Low PEEP Setting 5.0 Blood Gas Modality VENT - AC Blood Gas Notified Time 07/12/2016 7:52:24 AM Blood Gas Notified Whom JLD Blood Gas Respiration Rate 14.0 Blood Gas Specimen Source Blood arterial Blood Gas Temperature 37.0 Blood Gas Tidal Volume 500.0 FiO2 30.0 Oxyhemoglobin Percent 97.7 Total Hemoglobin 10.2 L Medications Current Medications Sodium Chloride (NS) 1,000 ml @ 100 mls/hr Q10H IV Last administered on t 05:04; Admin Dose 100 MLS/HR; Start 07/10/16 at 11:25 Ondansetron HCl (Zofran Inj) 4 mg Q6H PRN IV NAUSEA AND/OR VOMITING; Start 07/10 at 11:30 Acetaminophen (Tylenol Liquid) 650 mg Q6H PRN PO PAIN LEVEL 1-3 OR FEVER; Start 07/10/16 at 11:30 Acetaminophen (Tylenol Supp) 650 mg Q4H PRN [place] PAIN LEVEL 1-3 OR FEVER; Start 07/10/16 at 11:30 Docusate Sodium (Colace) 100 mg Q12H PRN PO CONSTIPATION; Start 07/10/16 at 11: 30 Magnesium Hydroxide (Milk Of Mag) 30 ml DAILY PRN PO CONSTIPATION; Start at 11:30 Bisacodyl (Dulcolax Supp) 10 mg DAILY PRN [place] CONSTIPATION; Start 07/10/16 at 11: 30 Pantoprazole 40 mg 40 mg DAILY@06 IV Last administered on 07/12/16 05:04; Admin Dose 40 MG; Start 07/11/16 at 06:00 Cefepime HCl 50 ml @ 100 mls/hr Q24H IVPB Last administered on 07/12/16 09:25 ; Admin Dose 100 MLS/HR; Start 07/11/16 at 09:00 Norepinephrine 16 mg/Dextrose 500 ml @ 1.875 mls/ hr TITRATE IV ; Start at 13:30 Vancomycin HCl/ Sodium Chloride (Vancocin/NS) 150 ml @ 75 mls/hr Q48H IVPB Last administered on 07/12/16 08:27; Admin Dose 75 MLS/HR; Start 07/12/16 at 08: 00 Aspirin (Aspirin) 81 mg DAILY PO Last administered on 07/12/16 09:25; Admin Dose 81 MG; Start 07/11/16 at 09:00 Atorvastatin Calcium (Lipitor) 10 mg QHS PO Last administered on 07/11/16 21:43 ; Admin Dose 10 MG; Start 07/10/16 at 21:00 Clopidogrel Bisulfate (plaVIX) 75 mg DAILY PO Last administered on 07/12/16 09: 25; Admin Dose 75 MG; Start 07/11/16 at 09:00 Ferrous Sulfate (Ferrous Sulfate (Ec)) 325 mg BID PO Last administered on 09:25; Admin Dose 325 MG; Start 07/10/16 at 21:00 Multivit/Ca Carb/ B Cmplx/FA/Prenat (Lind[place]-Armando) 1 tab DAILY PO Last administered on 07/12/16 09:25; Admin Dose 1 TAB; Start 07/11/16 at 09:00 Metoprolol Tartrate (Lopressor) 25 mg BID PO Last administered on 07/11/16 20: 44; Admin Dose 25 MG; Start 07/11/16 at 11:00 Enoxaparin Sodium (Lovenox) 65 mg Q24H SC Last administered on 07/12/16 09:27; Admin Dose 65 MG; Start 07/12/16 at 09:00 Morphine Sulfate (morphine) 2 mg Q1H PRN IV PAIN; Start 07/11/16 at 22:00 Assessment/Plan Chief Complaint/Hosp Course IMPRESSION AND PLAN: 1. Likely community-acquired pneumonia. 2. Hypoxemic respiratory failure. 3. Severe lactic acidosis. 4. Ischemia, likely demand ischemia, with elevated troponin. 5. History of coronary artery disease. 6. Renal insufficiency 7. Anemia likely dilutional The patient will need: 1. Continued broad-spectrum antibiotics. 2. Continue volume resuscitation. 3. CPAP weaning trial this morning. 4. DVT and GI prophylaxis. 5. Continue renal recommendations may need replacement of bicarbonate Problems: MEHNAZ WARREN MD, [facility] Jul 12, 2016 10:20
--- NOTE | 2016-07-12 11:33 | CONS ---
Date/Time of Note Date/Time of Note DATE: 07/12/16 TIME: 11:28 Assessment/Plan Assessment/Plan Chief Complaint/Hosp Course IMPRESSION: 1. Positive troponin concerning for non-ST elevation myocardial infarction.- now downtrending 2. Abnormal electrocardiogram with anteroseptal Q's. 3. Hypotension, currently improving. 4. History of dyslipidemia. 5. Respiratory failure, status post intubation. 6. Renal failure. 7. Pneumonia. 8. Anemia. 9. Leukocytosis. 10.Cardiomyopathy-LVEF [id number] by echo this admit Recc: -Tele -serial ecg';s -Continue BB as tolerated and will write for low dose hydralazine afterload reduction in lieu of ACEI secondary to renal failure -Continue ASA/plavix/lovenox -Continue statin -Continue abx's and f/u cx data -Follow volume status and renal function closely -trend cardiac enzymes Problems: Consultation Date/Type/Reason Admit Date/Time Jul 10, 2016 at 11:30 Initial Consult Date 07/12/16 Type of Consultation: Cardiology Reason for Consultation Nstemi/cardiomyopathy Referring Provider: JOB GARCÍA Exam/Review of Systems Vital Signs Vitals Vital Signs Date Time Temp Pulse Resp B/P Pulse Ox O2 Delivery O2 Flow Rate FiO2 07/12/16 10:30 82 29 121/55 100 Mechanical Ventilator 07/12/16 09:00 30 07/12/16 07:30 97.6 Intake and Output 07/11/16 07/11/16 07/12/16 14:59 22:59 06:59 Intake Total 600.66 ml 541.34 ml 901.76 ml Output Total 35 ml 530 ml 185 ml Balance 565.66 ml 11.34 ml 716.76 ml Exam Review of Systems: CONSTITUTIONAL: No fevers, chills. PULMONARY: intubated CARDIOVASCULAR: No chest pain/palpitations GASTROINTESTINAL: No nausea/vomiting. GENITOURINARY: No hematuria/dysuria. MUSCULOSKELETAL: No myagias/arthalgias. PSYCHIATRIC: The patient denies depression. NEUROLOGIC: sedated Constitutional: other (sedated) Psych: no complaints Head: normocephalic ENMT: intubated Neck: jvd (9 cm water), supple Respiratory: diminished breath sounds (at bases/B) Cardiovascular: regular rate and rhythm Gastrointestinal: non-tender, soft Musculoskeletal: muscle tone (normal) Extremities: edema (none) Neurological: other (No focal deficits) Results Result Diagram: 07/12/16 0430 07/12/16 0430 Results 24 hrs Laboratory Tests Test 07/11/16 16:47 07/12/16 04:30 07/12/16 07:00 Creatine Kinase 119 Creatine Kinase Index 2.9 Creatinine Kinase MB (Mass) 3.43 H Troponin I 0.731 *H Anion Gap 16 Basophils # 0.0 Basophils % 0.3 Blood Urea Nitrogen 27 H Calcium Level 7.5 L Carbon Dioxide Level 16 L Chloride Level 115 H Cholesterol Level 70 L Cholesterol/HDL Ratio 2.9 Creatinine 1.63 H Eosinophils # 0.0 Eosinophils % 0.2 Glucose Level 88 HDL Cholesterol 24 L Hematocrit 26.2 L Hemoglobin 8.9 L LDL Cholesterol, Calculated 2 Lymphocytes # 1.8 Lymphocytes % 21.1 Magnesium Level 2.1 Mean Corpuscular Hemoglobin 34.4 H Mean Corpuscular Hemoglobin Concent 34.2 Mean Corpuscular Volume 100.7 Mean Platelet Volume 8.6 Monocytes # 0.9 Monocytes % 10.0 Neutrophils # 5.9 Neutrophils % 68.4 Nucleated Red Blood Cells # 0.0 Nucleated Red Blood Cells % 0.0 Phosphorus Level 2.7 Platelet Count 147 Potassium Level 4.1 Red Blood Count 2.60 L Red Cell Distribution Width 13.5 Sodium Level 143 Triglycerides Level 222 H White Blood Count 8.6 Arterial Blood HCO3 13.9 L Arterial Blood Base Excess -9.5 L Arterial Blood Oxygen Saturation 98.2 Harish Test ACCEPTAB Arterial Blood Gas Puncture Site Right Radial Arterial Blood Carboxyhemoglobin 0.3 Arterial Blood Date Drawn 07/12/2016 7:38:41 AM Arterial Blood Methemoglobin 0.2 Arterial Blood pCO2 (Temp correct) 23.6 L Arterial Blood pH (Temp corrected) 7.389 Arterial Blood pO2 (Temp corrected) 137.2 H Blood Gas A-a O2 Differential 49.0 H Blood Gas Actual Respiration Rate 14 Blood Gas Low PEEP Setting 5.0 Blood Gas Modality VENT - AC Blood Gas Notified Time 07/12/2016 7:52:24 AM Blood Gas Notified Whom JLD Blood Gas Respiration Rate 14.0 Blood Gas Specimen Source Blood arterial Blood Gas Temperature 37.0 Blood Gas Tidal Volume 500.0 FiO2 30.0 Oxyhemoglobin Percent 97.7 Total Hemoglobin 10.2 L Medications Medications Current Medications Sodium Chloride (NS) 1,000 ml @ 100 mls/hr Q10H IV Last administered on 05:04; Admin Dose 100 MLS/HR; Start 07/10/16 at 11:25 Ondansetron HCl (Zofran Inj) 4 mg Q6H PRN IV NAUSEA AND/OR VOMITING; Start 07/10 at 11:30 Acetaminophen (Tylenol Liquid) 650 mg Q6H PRN PO PAIN LEVEL 1-3 OR FEVER; Start 07/10/16 at 11:30 Acetaminophen (Tylenol Supp) 650 mg Q4H PRN [place] PAIN LEVEL 1-3 OR FEVER; Start 07/10/16 at 11:30 Docusate Sodium (Colace) 100 mg Q12H PRN PO CONSTIPATION; Start 07/10/16 at 11: 30 Magnesium Hydroxide (Milk Of Mag) 30 ml DAILY PRN PO CONSTIPATION; Start at 11:30 Bisacodyl (Dulcolax Supp) 10 mg DAILY PRN [place] CONSTIPATION; Start 07/10/16 at 11: 30 Pantoprazole 40 mg 40 mg DAILY@06 IV Last administered on 07/12/16 05:04; Admin Dose 40 MG; Start 07/11/16 at 06:00 Cefepime HCl 50 ml @ 100 mls/hr Q24H IVPB Last administered on 07/12/16 09:25 ; Admin Dose 100 MLS/HR; Start 07/11/16 at 09:00 Norepinephrine 16 mg/Dextrose 500 ml @ 1.875 mls/ hr TITRATE IV ; Start at 13:30 Vancomycin HCl/ Sodium Chloride (Vancocin/NS) 150 ml @ 75 mls/hr Q48H IVPB Last administered on 07/12/16 08:27; Admin Dose 75 MLS/HR; Start 07/12/16 at 08: 00 Aspirin (Aspirin) 81 mg DAILY PO Last administered on 07/12/16 09:25; Admin Dose 81 MG; Start 07/11/16 at 09:00 Atorvastatin Calcium (Lipitor) 10 mg QHS PO Last administered on 07/11/16 21:43 ; Admin Dose 10 MG; Start 07/10/16 at 21:00 Clopidogrel Bisulfate (plaVIX) 75 mg DAILY PO Last administered on 07/12/16 09: 25; Admin Dose 75 MG; Start 07/11/16 at 09:00 Ferrous Sulfate (Ferrous Sulfate (Ec)) 325 mg BID PO Last administered on 09:25; Admin Dose 325 MG; Start 07/10/16 at 21:00 Multivit/Ca Carb/ B Cmplx/FA/Prenat (Lindsay-Armando) 1 tab DAILY PO Last administered on 07/12/16 09:25; Admin Dose 1 TAB; Start 07/11/16 at 09:00 Metoprolol Tartrate (Lopressor) 25 mg BID PO Last administered on 07/11/16 20: 44; Admin Dose 25 MG; Start 07/11/16 at 11:00 Enoxaparin Sodium (Lovenox) 65 mg Q24H SC Last administered on 07/12/16 09:27; Admin Dose 65 MG; Start 07/12/16 at 09:00 Morphine Sulfate (morphine) 2 mg Q1H PRN IV PAIN; Start 07/11/16 at 22:00 NATHALIE PENA Jul 12, 2016 11:33
--- NOTE | 2016-07-12 11:40 | PN ---
Date/Time of Note Date/Time of Note DATE: 07/12/16 TIME: 11:20 Assessment/Plan VTE Prophylaxis VTE Prophylaxis Intervention: LMWH (treatment dose given NSTEMI) Lines/Catheters IV [facility]from [facility] Saline [facility] Urinary Cath still in place: Yes Reason Cath still needed: other (indicate) (monitor UOP ) Assessment/Plan Assessment/Plan 81-year-old female with: 1. Acute respiratory failure with known interstitial lung disease and previous episodes of bronchitis, admitted with RML and RLL pneumonia which probably precipitated her respiratory failure. Even better today and on CPAP trial again with hopefully possible extubation Continue IV Abx and followed by Boby from pulmonary. 2. Coronary artery disease. S/p NSTEMI Appreciate recommendations from Dr Grimes 2D echo with new apical wall motion abnormality, may need angio later on if renal function permits otherwise continue medical management. Continue current cardiac medication and on Lovenox treatment dose, renally dosed. 3. Hypertension, back on meds 4. Hyperlipidemia. Continue statin therapy. Lipid panel done 5. Chronic kidney disease stage III, renal function keeps improving. Continue to monitor daily. Also monitoring mild metabolic acidosis 6. Interstitial lung disease. Continue MDI and bronchodilators while being intubated. on CPAP trial again, ? need for steroids if bronchospasm or difficulty extubated. 7. Gastroesophageal reflux disease. Continue proton pump inhibitors. 8. Lactic acidosis in setting of sepsis and respiratory failure. Resolved so far Continue IV fluids decrease to 75 cc/hr Continue IV abx for Pneumonia PROPHYLAXIS: Patient already on proton pump inhibitors for GI prophylaxis and heparin subq for DVT prophylaxis. DISPOSITION: ICU care, CPAP trial today and hopefully to be extubated later today if ABG look OK. Subjective 24 Hr Interval Summary Free Text/Dictation Patient currently on 1/2 sedation while on CPAP trial WBC wnl and CXR with some improvement NSTEMI with abnormal echo per Cardio Renal function around baseline Exam/Review of Systems Vital Signs Vitals Vital Signs Date Time Temp Pulse Resp B/P Pulse Ox O2 Delivery O2 Flow Rate FiO2 07/12/16 10:30 82 29 121/55 100 Mechanical Ventilator 07/12/16 09:00 30 07/12/16 07:30 97.6 Intake and Output 07/11/16 07/11/16 07/12/16 14:59 22:59 06:59 Intake Total 600.66 ml 541.34 ml 901.76 ml Output Total 35 ml 530 ml 185 ml Balance 565.66 ml 11.34 ml 716.76 ml Exam Constitutional: alert, other (on 1/2 sedation while on CPAP trial ) Respiratory: diminished breath sounds (RUL/RML but better ), normal air movement (on CPAP trial ) Cardiovascular: nl pulses, regular rate and rhythm Gastrointestinal: non-tender, soft Musculoskeletal: nl extremities to inspection Extremities: normal pulses, other Neurological: RETAIL PRESENTATION SPECIALIST II-XII intact, other (still on some sedation and intubated ) Results Result Diagram: 07/12/16 0430 07/12/16 0430 Results 24 hrs Laboratory Tests Test 07/11/16 16:47 07/12/16 04:30 07/12/16 07:00 Creatine Kinase 119 Creatine Kinase Index 2.9 Creatinine Kinase MB (Mass) 3.43 H Troponin I 0.731 *H Anion Gap 16 Basophils # 0.0 Basophils % 0.3 Blood Urea Nitrogen 27 H Calcium Level 7.5 L Carbon Dioxide Level 16 L Chloride Level 115 H Cholesterol Level 70 L Cholesterol/HDL Ratio 2.9 Creatinine 1.63 H Eosinophils # 0.0 Eosinophils % 0.2 Glucose Level 88 HDL Cholesterol 24 L Hematocrit 26.2 L Hemoglobin 8.9 L LDL Cholesterol, Calculated 2 Lymphocytes # 1.8 Lymphocytes % 21.1 Magnesium Level 2.1 Mean Corpuscular Hemoglobin 34.4 H Mean Corpuscular Hemoglobin Concent 34.2 Mean Corpuscular Volume 100.7 Mean Platelet Volume 8.6 Monocytes # 0.9 Monocytes % 10.0 Neutrophils # 5.9 Neutrophils % 68.4 Nucleated Red Blood Cells # 0.0 Nucleated Red Blood Cells % 0.0 Phosphorus Level 2.7 Platelet Count 147 Potassium Level 4.1 Red Blood Count 2.60 L Red Cell Distribution Width 13.5 Sodium Level 143 Triglycerides Level 222 H White Blood Count 8.6 Arterial Blood HCO3 13.9 L Arterial Blood Base Excess -9.5 L Arterial Blood Oxygen Saturation 98.2 Harish Test ACCEPTAB Arterial Blood Gas Puncture Site Right Radial Arterial Blood Carboxyhemoglobin 0.3 Arterial Blood Date Drawn 07/12/2016 7:38:41 AM Arterial Blood Methemoglobin 0.2 Arterial Blood pCO2 (Temp correct) 23.6 L Arterial Blood pH (Temp corrected) 7.389 Arterial Blood pO2 (Temp corrected) 137.2 H Blood Gas A-a O2 Differential 49.0 H Blood Gas Actual Respiration Rate 14 Blood Gas Low PEEP Setting 5.0 Blood Gas Modality VENT - AC Blood Gas Notified Time 07/12/2016 7:52:24 AM Blood Gas Notified Whom JLD Blood Gas Respiration Rate 14.0 Blood Gas Specimen Source Blood arterial Blood Gas Temperature 37.0 Blood Gas Tidal Volume 500.0 FiO2 30.0 Oxyhemoglobin Percent 97.7 Total Hemoglobin 10.2 L Medications Medications Current Medications Sodium Chloride (NS) 1,000 ml @ 100 mls/hr Q10H IV Last administered on 05:04; Admin Dose 100 MLS/HR; Start 07/10/16 at 11:25 Ondansetron HCl (Zofran Inj) 4 mg Q6H PRN IV NAUSEA AND/OR VOMITING; Start 07/10 at 11:30 Acetaminophen (Tylenol Liquid) 650 mg Q6H PRN PO PAIN LEVEL 1-3 OR FEVER; Start 07/10/16 at 11:30 Acetaminophen (Tylenol Supp) [address] PAIN LEVEL 1-3 OR FEVER; Start 07/10/16 at 11:30 Docusate Sodium (Colace) 100 mg Q12H PRN PO CONSTIPATION; Start 07/10/16 at 11: 30 Magnesium Hydroxide (Milk Of Mag) 30 ml DAILY PRN PO CONSTIPATION; Start at 11:30 Bisacodyl (Dulcolax Supp) [address] CONSTIPATION; Start 07/10/16 at 11: 30 Pantoprazole 40 mg 40 mg DAILY@06 IV Last administered on 07/12/16 05:04; Admin Dose 40 MG; Start 07/11/16 at 06:00 Cefepime HCl 50 ml @ 100 mls/hr Q24H IVPB Last administered on 07/12/16 09:25 ; Admin Dose 100 MLS/HR; Start 07/11/16 at 09:00 Norepinephrine 16 mg/Dextrose 500 ml @ 1.875 mls/ hr TITRATE IV ; Start at 13:30 Vancomycin HCl/ Sodium Chloride (Vancocin/NS) 150 ml @ 75 mls/hr Q48H IVPB Last administered on 07/12/16 08:27; Admin Dose 75 MLS/HR; Start 07/12/16 at 08: 00 Aspirin (Aspirin) 81 mg DAILY PO Last administered on 07/12/16 09:25; Admin Dose 81 MG; Start 07/11/16 at 09:00 Atorvastatin Calcium (Lipitor) 10 mg QHS PO Last administered on 07/11/16 21:43 ; Admin Dose 10 MG; Start 07/10/16 at 21:00 Clopidogrel Bisulfate (plaVIX) 75 mg DAILY PO Last administered on 07/12/16 09: 25; Admin Dose 75 MG; Start 07/11/16 at 09:00 Ferrous Sulfate (Ferrous Sulfate (Ec)) 325 mg BID PO Last administered on 09:25; Admin Dose 325 MG; Start 07/10/16 at 21:00 Multivit/Ca Carb/ B Cmplx/FA/Prenat (Lindsay-Armando) 1 tab DAILY PO Last administered on 07/12/16 09:25; Admin Dose 1 TAB; Start 07/11/16 at 09:00 Metoprolol Tartrate (Lopressor) 25 mg BID PO Last administered on 07/11/16 20: 44; Admin Dose 25 MG; Start 07/11/16 at 11:00 Enoxaparin Sodium (Lovenox) 65 mg Q24H SC Last administered on 07/12/16 09:27; Admin Dose 65 MG; Start 07/12/16 at 09:00 Morphine Sulfate (morphine) 2 mg Q1H PRN IV PAIN; Start 07/11/16 at 22:00 JOB GARCÍA Jul 12, 2016 11:31
[2016-07-12 11:54] LABS: AADO2 Arterial 51.7 mmHg (7.0-24.0); Allen Test ACCEPTAB; Arterial Base Excess -10.3 mmol/L (-3.0-3); Arterial COHb 0.3 % (0.0-3.0); Arterial HCO3 15.7 mmol/L (22.0-26.0); Arterial MetHb 0.3 % (0.0-1.5); Arterial Total Hemglobin 9.3 g/dl (12.0-18.0); Blood Gas PS 10; MODE VENT - CPAP
[2016-07-12] MEDS: SODIUM BICARBONATE (IV ADD) 150 MEQ in DEXTROSE 5%-0.45% NACL 1,000 ML IV SCH (15:23)
--- NOTE | 2016-07-12 18:45 | RADRPT ---
Vent Rate: 72 bpm RR Interval: 0 msec MN Interval: 128 msec QRS Duration: 78 msec QT Interval: 556 msec QTC Interval: 608 msec P-R-T [place]: 52 - 41 - 0 degrees Normal sinus rhythm Low voltage QRS Septal infarct , age undetermined ST amp; T wave abnormality, consider inferior ischemia ST amp; T wave abnormality, consider anterolateral ischemia Prolonged QT Abnormal ECG Electronically Signed By: Ramon Mobley [id number]
[2016-07-13] VITALS (69 sets, daily range): BP systolic 93–198; BP diastolic 49–110; PULSE 62–135; RESP 8–37
[2016-07-13] MEDS: METOPROLOL 25 MG TAB PO SCH ×3 (00:18→21:00)
[2016-07-13] MEDS: PROPOFOL 100 ML IV SCH ×2 (00:18→08:50)
[2016-07-13] MEDS: FERROUS SULFATE (EC) 325 MG TAB PO SCH ×3 (00:19→21:00)
[2016-07-13] MEDS: ATORVASTATIN 10 MG TAB PO SCH ×2 (00:19→21:00)
[2016-07-13] MEDS: IPRATROPIUM (HFA) 12.9 GM INHALER INH SCH ×6 (01:21→19:53)
[2016-07-13] MEDS: ALBUTEROL HFA 8 GM INHALER INH SCH ×6 (01:21→19:53)
[2016-07-13 05:11] LABS: POTASSIUM 3.4 mmol/L (3.5-5.1)
[2016-07-13 05:13] LABS: CREATININE 1.52 mg/dl (0.44-1.00)
[2016-07-13 05:14] LABS: CALCIUM 7.5 mg/dl (8.4-10.2); PHOSPHORUS 2.7 mg/dl (2.5-4.9)
[2016-07-13 05:15] LABS: HEMATOCRIT 26.7 % (37.0-47.0); HEMOGLOBIN 8.5 g/dl (12.0-16.0); MAGNESIUM 2.1 mg/dl (1.7-2.5); MEAN CORPUSCULAR HEMOGLOBIN 33.1 pg (29.0-33.0); MEAN CORPUSCULAR HGB CONC 31.8 g/dl (32.0-37.0); MEAN CORPUSCULAR VOLUME 103.9 fl (82.0-101.0); MEAN PLATELET VOLUME 10.3 fl (7.4-10.4); NEUTROPHILS % 65.1 % (39.0-77.0); PLATELET COUNT 173 10^3/UL (140-440); RED BLOOD COUNT 2.57 10^6/ul (4.20-5.40); RED CELL DISTRIBUTION WIDTH 13.2 % (11.5-14.5); WHITE BLOOD COUNT 8.1 10^3/ul (4.8-10.8)
[2016-07-13 05:16] LABS: BASOPHILS % 0.1 % (0.0-2.0); EOSINOPHILS # 0.1 10^3/ul (0.0-0.5); EOSINOPHILS % 0.9 % (0.0-7.0); LYMPHOCYTES # 2.1 10^3/ul (0.8-2.9); LYMPHOCYTES % 25.5 % (15.0-51.0); MONOCYTE # 0.7 10^3/ul (0.3-0.9); NEUTROPHIL # 5.3 10^3/ul (1.6-7.5)
[2016-07-13] MEDS: PANTOPRAZOLE 40 MG INJ IV SCH (05:29)
[2016-07-13] MEDS: SODIUM BICARBONATE (IV ADD) 150 MEQ in DEXTROSE 5%-0.45% NACL 1,000 ML IV SCH ×2 (05:29→21:41)
[2016-07-13] MEDS ORDERED: SUCCINYLCHOLINE CHLORIDE 100 MG/5 ML SYG IV ONE (07:00)
[2016-07-13] MEDS: MULTIVIT/CA CARB/B CMPLX/FA TAB PO SCH (08:48)
[2016-07-13] MEDS: CLOPIDOGREL 75 MG TAB PO SCH (08:48)
[2016-07-13] MEDS: ASPIRIN 81 MG TAB PO SCH (08:48)
[2016-07-13] MEDS: ENOXAPARIN 100 MG/ML SYG SC SCH (08:50)
--- NOTE | 2016-07-13 08:55 | RADRPT ---
PROCEDURE: XR Chest. CLINICAL INDICATION: Shortness of breath TECHNIQUE: A single portable view of the chest was obtained. COMPARISON: 07/12/2016 FINDINGS: The endotracheal tube, nasogastric tube, and right subclavian catheter are unchanged. The aorta is tortuous and atherosclerotic. The cardiomediastinal silhouette is otherwise stable. Diffuse pulmona ry vast congestion is once again seen and is unchanged. No dense consolidation is seen. The soft ti ssues and osseous structures demonstrate benign age related senescent changes. IMPRESSION: 1. Diffuse pulmonary vascular congestion which has not changed significantly. 2. Line and tubes unchanged. RPTAT: HPNM Physician Ignacia Date Time Electronically viewed and signed by Physician Ignacia on 07/13/2016 08:54 /
[2016-07-13] MEDS: CEFEPIME 2GM/50 ML (PMX) 50 ML IVPB SCH (09:27)
--- NOTE | 2016-07-13 10:19 | PN ---
Date/Time of Note Date/Time of Note DATE: 07/13/16 TIME: 10:04 Assessment/Plan VTE Prophylaxis VTE Prophylaxis Intervention: LMWH Lines/Catheters IV Catheter Type (from [facility]): Peripheral IV Urinary Cath still in place: Yes Reason Cath still needed: other (indicate) (intubated, unable to void on her own) Assessment/Plan Assessment/Plan [facility] INTERNAL MEDICINE 1. 81-year-old woman admitted 07/10/16 with acute respiratory failure secondary to NSTEMI, interstitial lung disease, and RML/RLL pneumonia. * Repeat trial of CPAP with eye toward extubation as soon as possible. * Continue day 4 IV vancomycin; day3 cefepime * Followed by Dr. Vance Landis from pulmonary. 2. Coronary artery disease s/p NSTEMI. Echo shows new apical wall motion abnormality. * Anticipate cardiac catheterization when stable * Continue current cardiac meds (Lopressor 25mg BID, Plavix, ASA 81mg). * Renal dosing of Lovenox 3. Hypertension, on Lopressor 4. Hypertriglyceridemia (222), with low total cholesterol (70) on Lipitor 10mg nightly 5. Chronic kidney disease stage III, with mild metabolic acidosis (pH 7.267 on blood gas yesterday following trial of CPAP). Creatinine down now from 1.96 to 1.52 today. * Bicarb drop 6. Interstitial lung disease. No current steroid use. * Continue MDI and bronchodilators. 7. Gastroesophageal reflux disease. * Continue Protonix 8. Prophylaxis * Already taking a Protonix for GI prophylaxis * Lovenox SQ for DVT prophylaxis. 9. Disposition: ICU care, anticipating continued transition toward extubation. Elevated creatinine poses a risk for coronary catheterization. Normally very functional woman with new segmental wall motion abnormality on echocardiography. Merry Munoz MD PhD [phone] Subjective Subjective 24 Hr Interval Summary Free Text/Dictation Patient currently on 1/2 sedation while on CPAP trial WBC wnl and CXR with some improvement NSTEMI with abnormal echo per Cardio Renal function around baseline Subjective 24 Hr Interval Summary Free Text/Dictation [id number] at her bedside. She said that Ms. Burnett has overcome considerable hardship in her life before immigrating from [facility] in [facility]. Able to engage with her, and squeeze her hand earlier. Off propofol now, but not as responsive for me. Exam/Review of Systems Vital Signs Vitals Vital Signs Date Time Temp Pulse Resp B/P Pulse Ox O2 Delivery O2 Flow Rate FiO2 07/13/16 06:00 64 14 117/57 100 Mechanical Ventilator 07/13/16 05:16 30 07/13/16 04:00 98.4 Intake and Output 07/12/16 07/12/16 07/13/16 15:00 23:00 07:00 Intake Total 576.32 ml 701.76 ml 526.32 ml Output Total 300 ml 295 ml 230 ml Balance 276.32 ml 406.76 ml 296.32 ml Exam Constitutional: Not responsive to voice. Afebrile. Respiratory: Ventilated on AC14, TV 500, FiO2 30%, PEEP 5. Good air movement, with no wheezing or crackles. Cardiovascular: Symmetric pulses, regular rhythm, normal rate. Gastrointestinal: non-tender, soft, bowel sounds positive. Musculoskeletal: nl extremities to inspection, with no peripheral edema or arthritis. Neurological: Intubated, non-responsive. PERRL. Toes upgoing. No increased deep tendon reflexes or posturing. Results Result Diagram: 07/13/16 0400 07/13/16 0400 Results 24 hrs Laboratory Tests Test 07/12/16 12:00 07/13/16 04:00 Arterial Blood HCO3 15.7 L Arterial Blood Base Excess -10.3 L Arterial Blood Oxygen Saturation 97.6 Harish Test ACCEPTAB Arterial Blood Gas Puncture Site Right Radial Arterial Blood Carboxyhemoglobin 0.3 Arterial Blood Date Drawn 07/12/2016 11:40:48 AM Arterial Blood Methemoglobin 0.3 Arterial Blood pCO2 (Temp correct) 35.3 Arterial Blood pH (Temp corrected) 7.267 *L Arterial Blood pO2 (Temp corrected) 120.7 H Blood Gas A-a O2 Differential 51.7 H Blood Gas Actual Respiration Rate 28 Blood Gas Critical Value Read Back E CABUNGCAL RN Blood Gas Low PEEP Setting 5.0 Blood Gas Modality VENT - CPAP Blood Gas Notified Time 07/12/2016 11:54:08 AM Blood Gas Notified Whom JLD Blood Gas Pressure Support 10 Blood Gas Specimen Source Blood arterial Blood Gas Temperature 37.0 FiO2 30.0 Oxyhemoglobin Percent 97.0 Total Hemoglobin 9.3 L Anion Gap 15 Basophils # 0.0 Basophils % 0.1 Blood Urea Nitrogen 26 H Calcium Level 7.5 L Carbon Dioxide Level 21 Chloride Level 114 H Creatinine 1.52 H Eosinophils # 0.1 Eosinophils % 0.9 Glucose Level 115 Hematocrit 26.7 L Hemoglobin 8.5 L Lymphocytes # 2.1 Lymphocytes % 25.5 Magnesium Level 2.1 Mean Corpuscular Hemoglobin 33.1 H Mean Corpuscular Hemoglobin Concent 31.8 L Mean Corpuscular Volume 103.9 H Mean Platelet Volume 10.3 Monocytes # 0.7 Monocytes % 8.0 Neutrophils # 5.3 Neutrophils % 65.1 Nucleated Red Blood Cells # 0.0 Nucleated Red Blood Cells % 0.0 Phosphorus Level 2.7 Platelet Count 173 Potassium Level 3.4 L Red Blood Count 2.57 L Red Cell Distribution Width 13.2 Sodium Level 147 H White Blood Count 8.1 Medications Medications Current Medications Ondansetron HCl (Zofran Inj) 4 mg Q6H PRN IV NAUSEA AND/OR VOMITING; Start 07/10 at 11:30 Acetaminophen (Tylenol Liquid) 650 mg Q6H PRN PO PAIN LEVEL 1-3 OR FEVER; Start 07/10/16 at 11:30 Acetaminophen (Tylenol Supp) 650 mg Q4H PRN MI PAIN LEVEL 1-3 OR FEVER; Start 07/10/16 at 11:30 Docusate Sodium (Colace) 100 mg Q12H PRN PO CONSTIPATION; Start 07/10/16 at 11: 30 Magnesium Hydroxide (Milk Of Mag) 30 ml DAILY PRN PO CONSTIPATION; Start at 11:30 Bisacodyl (Dulcolax Supp) 10 mg DAILY PRN MI CONSTIPATION; Start 07/10/16 at 11: 30 Pantoprazole 40 mg 40 mg DAILY@06 IV Last administered on 07/13/16 05:29; Admin Dose 40 MG; Start 07/11/16 at 06:00 Cefepime HCl 50 ml @ 100 mls/hr Q24H IVPB Last administered on 07/13/16 09:27 ; Admin Dose 100 MLS/HR; Start 07/11/16 at 09:00 Norepinephrine 16 mg/Dextrose 500 ml @ 1.875 mls/ hr TITRATE IV ; Start at 13:30 Vancomycin HCl/ Sodium Chloride (Vancocin/NS) 150 ml @ 75 mls/hr Q48H IVPB Last administered on 07/12/16 08:27; Admin Dose 75 MLS/HR; Start 07/12/16 at 08: 00 Aspirin (Aspirin) 81 mg DAILY PO Last administered on 07/13/16 08:48; Admin Dose 81 MG; Start 07/11/16 at 09:00 Atorvastatin Calcium (Lipitor) 10 mg QHS PO Last administered on 07/13/16 00:19 ; Admin Dose 10 MG; Start 07/10/16 at 21:00 Clopidogrel Bisulfate (plaVIX) 75 mg DAILY PO Last administered on 07/13/16 08: 48; Admin Dose 75 MG; Start 07/11/16 at 09:00 Ferrous Sulfate (Ferrous Sulfate (Ec)) 325 mg BID PO Last administered on 08:48; Admin Dose 325 MG; Start 07/10/16 at 21:00 Multivit/Ca Carb/ B Cmplx/FA/Prenat (Lindsay-Armando) 1 tab DAILY PO Last administered on 07/13/16 08:48; Admin Dose 1 TAB; Start 07/11/16 at 09:00 Metoprolol Tartrate (Lopressor) 25 mg BID PO Last administered on 07/13/16 08: 49; Admin Dose 25 MG; Start 07/11/16 at 11:00 Enoxaparin Sodium (Lovenox) 65 mg Q24H SC Last administered on 07/13/16 08:50; Admin Dose 65 MG; Start 07/12/16 at 09:00 Morphine Sulfate 2 mg 2 mg Q1H PRN IV PAIN; Start 07/11/16 at 22:00 Sodium Bicarbonate/ Dextrose/Sodium Chloride (Na Bicarb/D5-1/ 2ns) 1,150 ml @ 75 mls/hr [id number] IV Last administered on 07/13/16 05:29; Admin Dose 75 MLS/HR ; Start 07/12/16 at 14:00 CARLTON MUNOZ M.D. Jul 13, 2016 10:18
[2016-07-13] MEDS ORDERED: POTASSIUM CHLORIDE 20 MEQ in SOD CHLORIDE 0.9% 100 ML IVPB ONE (11:00)
--- NOTE | 2016-07-13 11:39 | CONS ---
Date/Time of Note Date/Time of Note DATE: 07/13/16 TIME: 11:38 Consult Date/Type/Reason Admit Date/Time Jul 10, 2016 at 11:30 Type of Consultation: pulmonary Ordering Provider: JOB GARCÍA Subjective Patient intubated and sedated Off sedation she follows simple commands Currently hemodynamically stable Minimal oral secretions Objective Vital Signs Date Time Temp Pulse Resp B/P Pulse Ox O2 Delivery O2 Flow Rate FiO2 07/13/16 08:00 71 07/13/16 06:00 14 117/57 100 Mechanical Ventilator 07/13/16 05:16 30 07/13/16 04:00 98.4 Intake and Output 07/12/16 07/12/16 07/13/16 15:00 23:00 07:00 Intake Total 576.32 ml 701.76 ml 526.32 ml Output Total 300 ml 295 ml 230 ml Balance 276.32 ml 406.76 ml 296.32 ml PHYSICAL EXAMINATION: GENERAL: Elderly [place] lady, who opens eyes to voice, not following commands. In no respiratory distress. VITAL SIGNS: As above HEENT: Orally intubated. Moist mucous membranes. Pupils are equal and reactive to light. CARDIAC EXAM: S1, S2. No added sounds or murmurs. CHEST: Diminished air entry bilaterally. No rales or wheezes. ABDOMEN: Soft, nontender. No guarding or rebound. EXTREMITIES: No cyanosis, clubbing or edema. NEUROLOGIC: Moves all 4 limbs. No focal deficits. Results/Medications Result Diagram: 07/13/16 0400 07/13/16 0400 Results 24 hrs Laboratory Tests Test 07/12/16 12:00 07/13/16 04:00 Arterial Blood HCO3 15.7 L Arterial Blood Base Excess -10.3 L Arterial Blood Oxygen Saturation 97.6 Harish Test ACCEPTAB Arterial Blood Gas Puncture Site Right Radial Arterial Blood Carboxyhemoglobin 0.3 Arterial Blood Date Drawn 07/12/2016 11:40:48 AM Arterial Blood Methemoglobin 0.3 Arterial Blood pCO2 (Temp correct) 35.3 Arterial Blood pH (Temp corrected) 7.267 *L Arterial Blood pO2 (Temp corrected) 120.7 H Blood Gas A-a O2 Differential 51.7 H Blood Gas Actual Respiration Rate 28 Blood Gas Critical Value Read Back E TU RN Blood Gas Low PEEP Setting 5.0 Blood Gas Modality VENT - CPAP Blood Gas Notified Time 07/12/2016 11:54:08 AM Blood Gas Notified Whom JLD Blood Gas Pressure Support 10 Blood Gas Specimen Source Blood arterial Blood Gas Temperature 37.0 FiO2 30.0 Oxyhemoglobin Percent 97.0 Total Hemoglobin 9.3 L Anion Gap 15 Basophils # 0.0 Basophils % 0.1 Blood Urea Nitrogen 26 H Calcium Level 7.5 L Carbon Dioxide Level 21 Chloride Level 114 H Creatinine 1.52 H Eosinophils # 0.1 Eosinophils % 0.9 Glucose Level 115 Hematocrit 26.7 L Hemoglobin 8.5 L Lymphocytes # 2.1 Lymphocytes % 25.5 Magnesium Level 2.1 Mean Corpuscular Hemoglobin 33.1 H Mean Corpuscular Hemoglobin Concent 31.8 L Mean Corpuscular Volume 103.9 H Mean Platelet Volume 10.3 Monocytes # 0.7 Monocytes % 8.0 Neutrophils # 5.3 Neutrophils % 65.1 Nucleated Red Blood Cells # 0.0 Nucleated Red Blood Cells % 0.0 Phosphorus Level 2.7 Platelet Count 173 Potassium Level 3.4 L Red Blood Count 2.57 L Red Cell Distribution Width 13.2 Sodium Level 147 H White Blood Count 8.1 Medications Current Medications Ondansetron HCl (Zofran Inj) 4 mg Q6H PRN IV NAUSEA AND/OR VOMITING; Start 07/10 at 11:30 Acetaminophen (Tylenol Liquid) 650 mg Q6H PRN PO PAIN LEVEL 1-3 OR FEVER; Start 07/10/16 at 11:30 Acetaminophen (Tylenol Supp) 650 mg Q4H PRN MI PAIN LEVEL 1-3 OR FEVER; Start 07/10/16 at 11:30 Docusate Sodium (Colace) 100 mg Q12H PRN PO CONSTIPATION; Start 07/10/16 at 11: 30 Magnesium Hydroxide (Milk Of Mag) 30 ml DAILY PRN PO CONSTIPATION; Start at 11:30 Bisacodyl (Dulcolax Supp) 10 mg DAILY PRN MI CONSTIPATION; Start 07/10/16 at 11: 30 Pantoprazole 40 mg 40 mg DAILY@06 IV Last administered on 07/13/16 05:29; Admin Dose 40 MG; Start 07/11/16 at 06:00 Cefepime HCl 50 ml @ 100 mls/hr Q24H IVPB Last administered on 07/13/16 09:27 ; Admin Dose 100 MLS/HR; Start 07/11/16 at 09:00 Norepinephrine 16 mg/Dextrose 500 ml @ 1.875 mls/ hr TITRATE IV ; Start at 13:30 Vancomycin HCl/ Sodium Chloride (Vancocin/NS) 150 ml @ 75 mls/hr Q48H IVPB Last administered on 07/12/16 08:27; Admin Dose 75 MLS/HR; Start 07/12/16 at 08: 00 Aspirin (Aspirin) 81 mg DAILY PO Last administered on 07/13/16 08:48; Admin Dose 81 MG; Start 07/11/16 at 09:00 Atorvastatin Calcium (Lipitor) 10 mg QHS PO Last administered on 07/13/16 00:19 ; Admin Dose 10 MG; Start 07/10/16 at 21:00 Clopidogrel Bisulfate (plaVIX) 75 mg DAILY PO Last administered on 07/13/16 08: 48; Admin Dose 75 MG; Start 07/11/16 at 09:00 Ferrous Sulfate (Ferrous Sulfate (Ec)) 325 mg BID PO Last administered on 08:48; Admin Dose 325 MG; Start 07/10/16 at 21:00 Multivit/Ca Carb/ B Cmplx/FA/Prenat (Lindsay-Armando) 1 tab DAILY PO Last administered on 07/13/16 08:48; Admin Dose 1 TAB; Start 07/11/16 at 09:00 Metoprolol Tartrate (Lopressor) 25 mg BID PO Last administered on 07/13/16 08: 49; Admin Dose 25 MG; Start 07/11/16 at 11:00 Enoxaparin Sodium (Lovenox) 65 mg Q24H SC Last administered on 07/13/16 08:50; Admin Dose 65 MG; Start 07/12/16 at 09:00 Morphine Sulfate 2 mg 2 mg Q1H PRN IV PAIN; Start 07/11/16 at 22:00 Sodium Bicarbonate 150 meq/Dextrose/ Sodium Chloride 1,150 ml @ 75 mls/hr [id number] IV Last administered on 07/13/16 05:29; Admin Dose 75 MLS/HR; Start 07/12/16 at 14:00 Potassium Chloride/Sodium Chloride (KCl/NS) 110 ml @ 55 mls/hr ONCE ONCE IVPB ; Start 07/13/16 at 11:00; Stop 07/13/16 at 12:59 Assessment/Plan Chief Complaint/Hosp Course IMPRESSION AND PLAN: 1. Likely community-acquired pneumonia. 2. Hypoxemic respiratory failure. 3. Severe lactic acidosis. 4. Ischemia, likely demand ischemia, with elevated troponin. 5. History of coronary artery disease. 6. Renal insufficiency 7. Anemia likely dilutional The patient will need: 1. Continued broad-spectrum antibiotics. 2. Continue volume resuscitation. 3. CPAP weaning trial this morning. 4. DVT and GI prophylaxis. 5. Continue renal recommendations Problems: MEHNAZ WARREN MD, [facility] Jul 13, 2016 11:39
[2016-07-13 13:20] LABS: AADO2 Arterial 50.2 mmHg (7.0-24.0); Allen Test ACCEPTAB; Arterial Base Excess -1.9 mmol/L (-3.0-3); Arterial COHb 0.2 % (0.0-3.0); Arterial Fraction of Oxyhgb 97.2 % (93.0-99.0); Arterial HCO3 22.6 mmol/L (22.0-26.0); Arterial MetHb 0.1 % (0.0-1.5); Arterial Total Hemglobin 10.5 g/dl (12.0-18.0); Blood Gas PS 10; MODE VENT - CPAP
[2016-07-13] MEDS ORDERED: FUROSEMIDE 40 MG INJ IV STA (14:53)
[2016-07-13] MEDS ORDERED: ALBUTEROL/IPRATROPIUM (NEB) 3 ML AMP ONE (14:59)
[2016-07-13] MEDS ORDERED: FUROSEMIDE 20 MG INJ IV ONE (15:00)
[2016-07-13] MEDS ORDERED: ALBUTEROL/IPRATROPIUM (NEB) 3 ML AMP HHN SCH (15:00)
[2016-07-13] MEDS ORDERED: RACEPINEPHRINE 2.25%(NEB) 0.5 ML AMP ONE (15:09)
[2016-07-13 15:26] LABS: AADO2 Arterial 149.4 mmHg (7.0-24.0); Allen Test ACCEPTAB; Arterial Base Excess -7.9 mmol/L (-3.0-3); Arterial COHb 0.3 % (0.0-3.0); Arterial Fraction of Oxyhgb 87.2 % (93.0-99.0); Arterial HCO3 26.8 mmol/L (22.0-26.0); Arterial MetHb 0.4 % (0.0-1.5); Arterial Total Hemglobin 12.1 g/dl (12.0-18.0); MODE NEBULIZER
[2016-07-13] MEDS ORDERED: RACEPINEPHRINE 2.25%(NEB) 0.5 ML AMP HHN ONE (15:30)
[2016-07-13] MEDS ORDERED: MIDAZOLAM 1 MG/ML 2 ML INJ ONE (15:30)
--- NOTE | 2016-07-13 16:44 | EN ---
Date/Time of Note Date/Time of Note DATE: 07/13/16 TIME: 15:58 Event Note Anesthesiology Anesthesiology Event Note Called for an emergency intubation in ICU at approximately 1545. On scene within a couple of minutes. Recently extubated morbidly obese patient being mask ventilated after multiple failed attempts by ER physician with glydescope using a 6.5 ETT that would not advance, airway bloody. Satuation 100%. Lung sounds crackly bilaterally. Patient had been induced with midazolam and sux per report. After suctioning blood, Using glydscope size 3, a bougie was passed blindly into the trachea without resistance and a size 5 ET tube advanced through over the bougie with minimal resistance to 21 cm at the lips. CO2 confirmed, bilateral breath sounds, still crackly, with considerable blood suctioned through the ET tube. Saturation 100%. Suspecting airway edema that lead to respiratory distress and subsequent difficulty with ET tube placement. Recommend IV dexamethsone to decrease airway edema. Do not extubate patient until airway edema subsides. EMILY BEYER DO Jul 13, 2016 16:44
--- NOTE | 2016-07-13 16:57 | CONS ---
Date/Time of Note Date/Time of Note DATE: 07/13/16 TIME: 16:52 Assessment/Plan Assessment/Plan Additional Assessment/Plan Community-acquired pneumonia, respiratory failure s/p re intubation, Severe sepsis, CAD, ACS, Renal insufficiency and anemia Continue Vent Support and Pulmonary Toiletry Continue beta blockers Continue ASA and Plavix Continue Lipitor Continue Pulmonary Tolietry ABG PRN Consultation Date/Type/Reason Admit Date/Time Jul 10, 2016 at 11:30 Psychological: no complaints Social History Smoking Status: Never smoker Exam/Review of Systems Vital Signs Vitals Vital Signs Date Time Temp Pulse Resp B/P Pulse Ox O2 Delivery O2 Flow Rate FiO2 07/13/16 16:00 100 07/13/16 14:30 25 155/80 100 Mechanical Ventilator 07/13/16 13:05 30 07/13/16 08:00 97.8 Intake and Output 07/12/16 07/12/16 07/13/16 15:00 23:00 07:00 Intake Total 576.32 ml 701.76 ml 526.32 ml Output Total 300 ml 295 ml 270 ml Balance 276.32 ml 406.76 ml 256.32 ml Exam Sedated and re intubated No JVD CVS: RRR, no m/r/g Chest Mechanical breath sounds heard bilaterally Abdomen soft BS heard Extremity No Pedal edema Results Result Diagram: 07/13/16 0400 07/13/16 0400 Results 24 hrs Laboratory Tests Test 07/13/16 04:00 07/13/16 13:00 07/13/16 15:11 Anion Gap 15 Basophils # 0.0 Basophils % 0.1 Blood Urea Nitrogen 26 H Calcium Level 7.5 L Carbon Dioxide Level 21 Chloride Level 114 H Creatinine 1.52 H Eosinophils # 0.1 Eosinophils % 0.9 Glucose Level 115 Hematocrit 26.7 L Hemoglobin 8.5 L Lymphocytes # 2.1 Lymphocytes % 25.5 Magnesium Level 2.1 Mean Corpuscular Hemoglobin 33.1 H Mean Corpuscular Hemoglobin Concent 31.8 L Mean Corpuscular Volume 103.9 H Mean Platelet Volume 10.3 Monocytes # 0.7 Monocytes % 8.0 Neutrophils # 5.3 Neutrophils % 65.1 Nucleated Red Blood Cells # 0.0 Nucleated Red Blood Cells % 0.0 Phosphorus Level 2.7 Platelet Count 173 Potassium Level 3.4 L Red Blood Count 2.57 L Red Cell Distribution Width 13.2 Sodium Level 147 H White Blood Count 8.1 Arterial Blood HCO3 22.6 26.8 H Arterial Blood Base Excess -1.9 -7.9 L Arterial Blood Oxygen Saturation 97.5 87.8 L Harish Test ACCEPTAB ACCEPTAB Arterial Blood Gas Puncture Site Right Radial Right Radial Arterial Blood Carboxyhemoglobin 0.2 0.3 Arterial Blood Date Drawn 07/13/2016 1:10:00 PM 07/13/2016 3:14:57 PM Arterial Blood Methemoglobin 0.1 0.4 Arterial Blood pCO2 (Temp correct) 37.2 127.5 *H Arterial Blood pH (Temp corrected) 7.401 6.940 *L Arterial Blood pO2 (Temp corrected) 120.0 H 86.0 Blood Gas A-a O2 Differential 50.2 H 149.4 H Blood Gas Low PEEP Setting 5.0 Blood Gas Modality VENT - CPAP NEBULIZER Blood Gas Notified Time 07/13/2016 1:19:56 PM 07/13/2016 3:25:16 PM Blood Gas Notified Whom TM AT Blood Gas Pressure Support 10 Blood Gas Specimen Source Blood arterial Blood arterial Blood Gas Temperature 37.0 37.0 FiO2 30.0 53.0 Oxyhemoglobin Percent 97.2 87.2 L Total Hemoglobin 10.5 L 12.1 Blood Gas Critical Value Read Back RN Y ABLE Medications Medications Current Medications Ondansetron HCl (Zofran Inj) 4 mg Q6H PRN IV NAUSEA AND/OR VOMITING; Start 07/10 at 11:30 Acetaminophen (Tylenol Liquid) 650 mg Q6H PRN PO PAIN LEVEL 1-3 OR FEVER; Start 07/10/16 at 11:30 Acetaminophen (Tylenol Supp) 650 mg Q4H PRN DC PAIN LEVEL 1-3 OR FEVER; Start 07/10/16 at 11:30 Docusate Sodium (Colace) 100 mg Q12H PRN PO CONSTIPATION; Start 07/10/16 at 11: 30 Magnesium Hydroxide (Milk Of Mag) 30 ml DAILY PRN PO CONSTIPATION; Start at 11:30 Bisacodyl (Dulcolax Supp) 10 mg DAILY PRN DC CONSTIPATION; Start 07/10/16 at 11: 30 Pantoprazole 40 mg 40 mg DAILY@06 IV Last administered on 07/13/16t 05:29; Admin Dose 40 MG; Start 07/11/16 at 06:00 Cefepime HCl 50 ml @ 100 mls/hr Q24H IVPB Last administered on 07/13/16 09:27 ; Admin Dose 100 MLS/HR; Start 07/11/16 at 09:00 Norepinephrine 16 mg/Dextrose 500 ml @ 1.875 mls/ hr TITRATE IV ; Start at 13:30 Vancomycin HCl/ Sodium Chloride (Vancocin/NS) 150 ml @ 75 mls/hr Q48H IVPB Last administered on 07/12/16 08:27; Admin Dose 75 MLS/HR; Start 07/12/16 at 08: 00 Aspirin (Aspirin) 81 mg DAILY PO Last administered on 07/13/16 08:48; Admin Dose 81 MG; Start 07/11/16 at 09:00 Atorvastatin Calcium (Lipitor) 10 mg QHS PO Last administered on 07/13/16 00:19 ; Admin Dose 10 MG; Start 07/10/16 at 21:00 Clopidogrel Bisulfate (plaVIX) 75 mg DAILY PO Last administered on 07/13/16 08: 48; Admin Dose 75 MG; Start 07/11/16 at 09:00 Ferrous Sulfate (Ferrous Sulfate (Ec)) 325 mg BID PO Last administered on 08:48; Admin Dose 325 MG; Start 07/10/16 at 21:00 Multivit/Ca Carb/ B Cmplx/FA/Prenat (Lindsay-Armando) 1 tab DAILY PO Last administered on 07/13/16 08:48; Admin Dose 1 TAB; Start 07/11/16 at 09:00 Metoprolol Tartrate (Lopressor) 25 mg BID PO Last administered on 07/13/16 08: 49; Admin Dose 25 MG; Start 07/11/16 at 11:00 Morphine Sulfate 2 mg 2 mg Q1H PRN IV PAIN; Start 07/11/16 at 22:00 Sodium Bicarbonate/ Dextrose/Sodium Chloride (Na Bicarb/D5-1/ 2ns) 1,150 ml @ 75 mls/hr [id number] IV Last administered on 07/13/16 05:29; Admin Dose 75 MLS/HR ; Start 07/12/16 at 14:00 Miscellaneous Information (*Rx Drug Level Order Reminder*) VANCOMYCIN TROUGH 07/14 AT 0700 ONCE ONCE XX ; Start 07/14/16 at 07:00; Stop 07/14/16 at 07:01 Enoxaparin Sodium (Lovenox) 65 mg Q24H SC ; Start 07/14/16 at 09:00 Albuterol/ Ipratropium (Duoneb) 3 ml PRN HHN Last administered on 07/13/16t 15: 11; Admin Dose 3 ML; Start 07/13/16 at 15:00 LUCY BELLE M.D. Jul 13, 2016 16:57
[2016-07-13 17:04] LABS: Allen Test ACCEPTAB; Arterial Base Excess -5.5 mmol/L (-3.0-3); Arterial COHb 0.3 % (0.0-3.0); Arterial Fraction of Oxyhgb 98.4 % (93.0-99.0); Arterial HCO3 21.5 mmol/L (22.0-26.0); Arterial MetHb 0.4 % (0.0-1.5); Arterial Total Hemglobin 11.7 g/dl (12.0-18.0); MODE VENT - AC
--- NOTE | 2016-07-13 17:24 | RADRPT ---
PROCEDURE: XR Chest. CLINICAL INDICATION: Status post intubation. TECHNIQUE: Single frontal view of the chest was obtained COMPARISON: Chest x-ray 07/13/2016 06:14 a.m. FINDINGS: There are bilateral worsening perihilar mixed interstitial and alveolar infiltrate extending toward the periphery of the lungs. There are bilateral small pleural effusions. This is more pronounced in the right lung than left. The heart remains enlarged. The endotracheal tube is well-positioned at T4. NG tube is well positioned distal to the GE junction. There are osteophytes in the thoracic s pine and vascular calcifications in the ectatic less aorta. There is a small bore central venous ca theter entering from right subclavian approach with its tip in the superior vena cava. There is no evidence of a pneumothorax. The soft tissues are generous. IMPRESSION: 1. Congestive heart failure with worsening interstitial pulmonary edema when compared to 07/13/2016. A superimposed pneumonia in this setting is not excluded. 2. Cardiomegaly. 3. 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 4. Satisfactory positioning of the endotracheal tube at T4-5. 5. There are small pleural effusions. 6. A small volar of the small bore central venous catheter enters were right subclavian approach wi th its tip in the superior vena cava. There is no evidence of a pneumothorax. 7. Satisfactory positioning of a nasogastric tube. RPTAT:AAJJ Physician Rosendo Date Time Electronically viewed and signed by Lance Dee Physician on 07/13/2016 17:24 CHRIS/
--- NOTE | 2016-07-13 18:06 | RADRPT ---
PROCEDURE: XR Chest. CLINICAL INDICATION: Endotracheal tube enhancement. TECHNIQUE: Portable AP upright view of the chest was obtained. COMPARISON: 07/13/2016 FINDINGS: The cardiomediastinal silhouette is mildly enlarged. Distal tip of the endotracheal tube is now 3.5 cm above the cathy, previously 4.6 cm. Pulmonary vascular congestion with small pleural effusions bilaterally are again noted. A right-sided subclavian central venous access catheter remains in sa tisfactory position the tip at the cavoatrial junction. The distal tip of the nasogastric/orogastri c tube is stable in position within the proximal stomach. The osseous structures are intact with no evidence for acute abnormality. RPTAT:HJJR IMPRESSION: 1. Distal tip of the endotracheal tube is now approximately 3.5 cm above the cathy, previously 4.6 cm. The position is satisfactory. 2. Chronic-appearing congestive heart failure is stable. Physician Fani Date Time Electronically viewed and signed by Physician Fani on 07/13/2016 18:06 /
[2016-07-13] MEDS: METHYLPREDNISOLONE 125 MG INJ IV SCH ×2 (18:43→21:41)
[2016-07-14] VITALS (75 sets, daily range): BP systolic 101–152; BP diastolic 50–79; PULSE 44–87; RESP 13–26
[2016-07-14] MEDS: IPRATROPIUM (HFA) 12.9 GM INHALER INH SCH ×6 (01:02→21:14)
[2016-07-14] MEDS: ALBUTEROL HFA 8 GM INHALER INH SCH ×6 (01:02→21:14)
[2016-07-14 04:52] LABS: CREATININE 1.14 mg/dl (0.44-1.00)
[2016-07-14 04:53] LABS: MAGNESIUM 1.5 mg/dl (1.7-2.5); PHOSPHORUS 2.2 mg/dl (2.5-4.9)
[2016-07-14 04:58] LABS: CALCIUM 5.3 mg/dl (8.4-10.2); POTASSIUM 2.5 mmol/L (3.5-5.1)
[2016-07-14 05:02] LABS: HEMATOCRIT 26.1 % (37.0-47.0); HEMOGLOBIN 8.9 g/dl (12.0-16.0); LYMPHOCYTES # 1.1 10^3/ul (0.8-2.9); LYMPHOCYTES % 10.4 % (15.0-51.0); MEAN CORPUSCULAR HEMOGLOBIN 33.6 pg (29.0-33.0); MEAN CORPUSCULAR HGB CONC 33.9 g/dl (32.0-37.0); MEAN PLATELET VOLUME 8.2 fl (7.4-10.4); MONOCYTE # 0.2 10^3/ul (0.3-0.9); MONOCYTES % 2.3 % (0.0-11.0); NEUTROPHIL # 8.9 10^3/ul (1.6-7.5); NEUTROPHILS % 87.3 % (39.0-77.0); PLATELET COUNT 198 10^3/UL (140-440); RED BLOOD COUNT 2.63 10^6/ul (4.20-5.40); RED CELL DISTRIBUTION WIDTH 13.2 % (11.5-14.5); UNCORRECTED WBC 10.2 10^3/ul (4.8-10.8); WHITE BLOOD COUNT 10.2 10^3/ul (4.8-10.8)
[2016-07-14] MEDS ORDERED: POTASSIUM CHLORIDE 250 ML IVPB ONE (05:30)
[2016-07-14 05:43] LABS: CONDITION 1
[2016-07-14] MEDS: PANTOPRAZOLE 40 MG INJ IV SCH (06:03)
[2016-07-14] MEDS: METHYLPREDNISOLONE 125 MG INJ IV SCH ×2 (06:04→13:26)
--- NOTE | 2016-07-14 08:14 | RADRPT ---
PROCEDURE: XR Chest. CLINICAL INDICATION: Pneumonia; CHF. TECHNIQUE: Single frontal view of the chest was obtained COMPARISON: Chest x-ray 07/13/2016 05:38 p.m. FINDINGS: The heart is mildly enlarged. There are persistent mixed interstitial and alveolar infiltrates exte nding from the hilar areas toward the periphery of the lungs. These are worse in the right lung and left. There are bilateral pleural effusions. The central venous catheter, endotracheal tube and NG tube remain in good position. Degenerative os teophytes are present in the thoracic spine. IMPRESSION: 1. Congestive heart failure with asymmetric interstitial pulmonary edema and bilateral pleural effus ions which appears little changed as compared to 07/13/2016. 2. Satisfactory and stable positioning of the PICC line catheter, endotracheal tube and NG tube. RPTAT:AAJJ Physician Rosendo Date Time Electronically viewed and signed by Physician Rosendo on 07/14/2016 08:14 CHRIS/
[2016-07-14 08:40] LABS: AADO2 Arterial 146.2 mmHg (7.0-24.0); Allen Test ACCEPTAB; Arterial COHb 0.2 % (0.0-3.0); Arterial Fraction of Oxyhgb 97.2 % (93.0-99.0); Arterial HCO3 25.9 mmol/L (22.0-26.0); Arterial MetHb 0.2 % (0.0-1.5); Arterial Total Hemglobin 10.6 g/dl (12.0-18.0); MODE VENT - AC
[2016-07-14] MEDS: PROPOFOL 100 ML IV SCH (08:43)
[2016-07-14] MEDS: VANCOMYCIN 1 GM in NS 250 ML IVPB SCH (08:53)
[2016-07-14] MEDS: CLOPIDOGREL 75 MG TAB PO SCH (08:58)
[2016-07-14] MEDS: FERROUS SULFATE (EC) 325 MG TAB PO SCH ×2 (08:59→20:48)
[2016-07-14] MEDS: MULTIVIT/CA CARB/B CMPLX/FA TAB PO SCH (08:59)
[2016-07-14] MEDS: ASPIRIN 81 MG TAB PO SCH (08:59)
[2016-07-14] MEDS: METOPROLOL 25 MG TAB PO SCH ×2 (09:00→20:48)
[2016-07-14] MEDS: ENOXAPARIN 80 MG/0.8 ML SYG SC SCH (09:00)
[2016-07-14] MEDS: CEFEPIME 2GM/50 ML (PMX) 50 ML IVPB SCH (09:52)
[2016-07-14 10:43] LABS: POTASSIUM 3.9 mmol/L (3.5-5.1)
[2016-07-14 10:46] LABS: CALCIUM 7.4 mg/dl (8.4-10.2); CREATININE 1.58 mg/dl (0.44-1.00)
[2016-07-14] MEDS: SODIUM BICARBONATE (IV ADD) 150 MEQ in DEXTROSE 5%-0.45% NACL 1,000 ML IV SCH (12:08)
--- NOTE | 2016-07-14 12:56 | CONS ---
Date/Time of Note Date/Time of Note DATE: 07/14/16 TIME: 12:54 Consult Date/Type/Reason Admit Date/Time Jul 10, 2016 at 11:30 Type of Consultation: pulmonary Ordering Provider: JOB GARCÍA Subjective Patient stable following reintubation Continues mechanical ventilation Opens eyes attempts to follow simple commands Objective Vital Signs Date Time Temp Pulse Resp B/P Pulse Ox O2 Delivery O2 Flow Rate FiO2 07/14/16 11:00 61 24 100 40 07/14/16 10:30 140/67 07/14/16 10:00 Mechanical Ventilator 07/14/16 08:00 98.8 Intake and Output 07/13/16 07/13/16 07/14/16 15:00 23:00 07:00 Intake Total 113 ml 1100.216 ml 577.53 ml Output Total 260 ml 175 ml 255 ml Balance -147 ml 925.216 ml 322.53 ml PHYSICAL EXAMINATION GENERAL: Elderly [place] lady intubated on mechanical ventilation VITAL SIGNS: see below. HEENT: Pupils unreactive CARDIAC: S1, S2, tachycardia. CHEST: Diminished air entry bilaterally. ABDOMEN: Mildly distended. No bowel sounds. EXTREMITIES: No cyanosis, clubbing edema +1 NEUROLOGIC sedated comfortable Results/Medications Result Diagram: 07/14/16 0400 07/14/16 1020 Results 24 hrs Laboratory Tests Test 07/13/16 13:00 07/13/16 15:11 07/13/16 16:50 07/14/16 04:00 Arterial Blood HCO3 22.6 26.8 H 21.5 L Arterial Blood Base Excess -1.9 -7.9 L -5.5 L Arterial Blood Oxygen Saturation 97.5 87.8 L 99.1 Harish Test ACCEPTAB ACCEPTAB ACCEPTAB Arterial Blood Gas Puncture Site Right Radial Right Radial Right Radial Arterial Blood Carboxyhemoglobin 0.2 0.3 0.3 Arterial Blood Date Drawn 07/13/2016 1:10:00 PM 07/13/2016 3:14:57 PM 07/13/2016 4:56:02 PM Arterial Blood Methemoglobin 0.1 0.4 0.4 Arterial Blood pCO2 (Temp correct) 37.2 127.5 *H 48.1 H Arterial Blood pH (Temp corrected) 7.401 6.940 *L 7.268 *L Arterial Blood pO2 (Temp corrected) 120.0 H 86.0 376.9 H Blood Gas A-a O2 Differential 50.2 H 149.4 H 288.0 H Blood Gas Low PEEP Setting 5.0 5.0 Blood Gas Modality VENT - CPAP NEBULIZER VENT - AC Blood Gas Notified Time 07/13/2016 1:19:56 PM 07/13/2016 3:25:16 PM 07/13/2016 5:02:17 PM Blood Gas Notified Whom TM AT [facility] Blood Gas Pressure Support 10 Blood Gas Specimen Source Blood arterial Blood arterial Blood arterial Blood Gas Temperature 37.0 37.0 37.0 FiO2 30.0 53.0 100.0 Oxyhemoglobin Percent 97.2 87.2 L 98.4 Total Hemoglobin 10.5 L 12.1 11.7 L Blood Gas Critical Value Read Back SHELIA Y KARYN ROCHA RAnahyNAnahy Blood Gas Actual Respiration Rate 24 Blood Gas Respiration Rate 24.0 Blood Gas Tidal Volume 350.0 Anion Gap 15 Basophils # 0.0 Basophils % 0.0 Blood Urea Nitrogen 22 H Calcium Level 5.3 *L Carbon Dioxide Level 19 L Chloride Level 119 H Creatinine 1.14 H Eosinophils # 0.0 Eosinophils % 0.0 Glucose Level 177 Hematocrit 26.1 L Hemoglobin 8.9 L Lymphocytes # 1.1 Lymphocytes % 10.4 L Magnesium Level 1.5 L Mean Corpuscular Hemoglobin 33.6 H Mean Corpuscular Hemoglobin Concent 33.9 Mean Corpuscular Volume 99.0 Mean Platelet Volume 8.2 # Monocytes # 0.2 L Monocytes % 2.3 Neutrophils # 8.9 H Neutrophils % 87.3 H Nucleated Red Blood Cells # 0.0 Nucleated Red Blood Cells % 0.0 Phosphorus Level 2.2 L Platelet Count 198 Potassium Level 2.5 *L Red Blood Count 2.63 L Red Cell Distribution Width 13.2 Sodium Level 150 H Vancomycin Level Trough 10.5 White Blood Count 10.2 # Test 07/14/16 07:00 07/14/16 10:20 Arterial Blood HCO3 25.9 Arterial Blood Base Excess 5.0 H Arterial Blood Oxygen Saturation 97.6 Harish Test ACCEPTAB Arterial Blood Gas Puncture Site Right Radial Arterial Blood Carboxyhemoglobin 0.2 Arterial Blood Date Drawn 07/14/2016 8:10:23 AM Arterial Blood Methemoglobin 0.2 Arterial Blood pCO2 (Temp correct) 26.5 L Arterial Blood pH (Temp corrected) 7.608 *H Arterial Blood pO2 (Temp corrected) 108.5 H Blood Gas A-a O2 Differential 146.2 H Blood Gas Actual Respiration Rate 24 Blood Gas Critical Value Read Back Maria Guadalupe GARRETT RN Blood Gas Low PEEP Setting 5.0 Blood Gas Modality VENT - AC Blood Gas Notified Time 07/14/2016 8:40:48 AM Blood Gas Notified Whom Ender ESPINAL Blood Gas Respiration Rate 24.0 Blood Gas Specimen Source Blood arterial Blood Gas Temperature 37.0 Blood Gas Tidal Volume 400.0 FiO2 40.0 Oxyhemoglobin Percent 97.2 Total Hemoglobin 10.6 L Anion Gap 15 Blood Urea Nitrogen 31 H Calcium Level 7.4 L Carbon Dioxide Level 26 Chloride Level 114 H Creatinine 1.58 H Glucose Level 223 H Potassium Level 3.9 Sodium Level 151 H Medications Current Medications Ondansetron HCl (Zofran Inj) 4 mg Q6H PRN IV NAUSEA AND/OR VOMITING; Start 07/10 at 11:30 Acetaminophen (Tylenol Liquid) 650 mg Q6H PRN PO PAIN LEVEL 1-3 OR FEVER; Start 07/10/16 at 11:30 Acetaminophen (Tylenol Supp) 650 mg Q4H PRN [place] PAIN LEVEL 1-3 OR FEVER; Start 07/10/16 at 11:30 Docusate Sodium (Colace) 100 mg Q12H PRN PO CONSTIPATION; Start 07/10/16 at 11: 30 Magnesium Hydroxide (Milk Of Mag) 30 ml DAILY PRN PO CONSTIPATION; Start at 11:30 Bisacodyl (Dulcolax Supp) 10 mg DAILY PRN [place] CONSTIPATION; Start 07/10/16 at 11: 30 Pantoprazole 40 mg 40 mg DAILY@06 IV Last administered on 07/14/16 06:03; Admin Dose 40 MG; Start 07/11/16 at 06:00 Cefepime HCl 50 ml @ 100 mls/hr Q24H IVPB Last administered on 07/14/16 09:52 ; Admin Dose 100 MLS/HR; Start 07/11/16 at 09:00 Norepinephrine/ Dextrose (Levophed/D5W) 500 ml @ 1.875 mls/ hr TITRATE IV ; Start 07/10/16 at 13:30 Aspirin (Aspirin) 81 mg DAILY PO Last administered on 07/14/16 08:59; Admin Dose 81 MG; Start 07/11/16 at 09:00 Atorvastatin Calcium (Lipitor) 10 mg QHS PO Last administered on 07/13/16 00:19 ; Admin Dose 10 MG; Start 07/10/16 at 21:00 Clopidogrel Bisulfate (plaVIX) 75 mg DAILY PO Last administered on 07/14/16 08: 58; Admin Dose 75 MG; Start 07/11/16 at 09:00 Ferrous Sulfate (Ferrous Sulfate (Ec)) 325 mg BID PO Last administered on 08:59; Admin Dose 325 MG; Start 07/10/16 at 21:00 Multivit/Ca Carb/ B Cmplx/FA/Prenat (Lindsay-Armando) 1 tab DAILY PO Last administered on 07/14/16 08:59; Admin Dose 1 TAB; Start 07/11/16 at 09:00 Metoprolol Tartrate (Lopressor) 25 mg BID PO Last administered on 07/13/16 08: 49; Admin Dose 25 MG; Start 07/11/16 at 11:00 Morphine Sulfate 2 mg 2 mg Q1H PRN IV PAIN; Start 07/11/16 at 22:00 Sodium Bicarbonate/ Dextrose/Sodium Chloride (Na Bicarb/D5-1/ 2ns) 1,150 ml @ 75 mls/hr [id number] IV Last administered on 07/14/16 12:08; Admin Dose 75 MLS/HR ; Start 07/12/16 at 14:00 Enoxaparin Sodium (Lovenox) 65 mg Q24H SC Last administered on 07/14/16 09:00; Admin Dose 65 MG; Start 07/14/16 at 09:00 Albuterol/ Ipratropium (Duoneb) 3 ml PRN HHN Last administered on 07/13/16 15: 11; Admin Dose 3 ML; Start 07/13/16 at 15:00 Methylprednisolone Sodium Succinate 60 mg 60 mg Q8 IV Last administered on 06:04; Admin Dose 60 MG; Start 07/13/16 at 17:30 Fentanyl 100 ml @ 2.5 mls/hr TITRATE IV ; Start 07/13/16 at 20:30 Vancomycin HCl 250 ml @ 125 mls/hr Q24H IVPB Last administered on 07/14/16 08: 53; Admin Dose 125 MLS/HR; Start 07/14/16 at 08:30 Midazolam HCl (Versed) 50 ml @ 1 mls/hr TITRATE IV ; Start 07/14/16 at 12:00 Assessment/Plan Chief Complaint/Hosp Course IMPRESSION AND PLAN: 1. Likely community-acquired pneumonia. 2. Hypoxemic respiratory failure. Reintubated secondary to upper airway edema vocal cord closure 3. Severe lactic acidosis. 4. Ischemia, likely demand ischemia, with elevated troponin. 5. History of coronary artery disease. 6. Renal insufficiency 7. Anemia likely dilutional The patient will need: 1. Continued broad-spectrum antibiotics. 2. Continue IV fluids 3. Continue mechanical ventilation 4. DVT and GI prophylaxis. 5. Continue renal recommendations 6. Continue steroids for upper airway edema and inflammation Long discussion with patient's family at bedside Will continue steroids with the hope of decreasing edema and safe extubation in 2-3 days' time If patient is not weanable from mechanical ventilation and they will consider comfort care Problems: MEHNAZ WARREN MD, [facility] Jul 14, 2016 12:56
[2016-07-14] MEDS: MIDAZOLAM (DRIP) 50 mg/50 mL 50 ML IV SCH ×2 (13:27→19:56)
--- NOTE | 2016-07-14 14:24 | PN ---
Date/Time of Note Date/Time of Note DATE: 07/14/16 TIME: 14:20 Assessment/Plan VTE Prophylaxis VTE Prophylaxis Intervention: LMWH Lines/Catheters IV Catheter Type (from Nrs): Central Line Central line still needed: Yes (critically ill) Urinary Cath still in place: Yes Reason Cath still needed: other (indicate) (critically ill) Assessment/Plan Assessment/Plan [facility] 1. 81-year-old woman admitted 07/10/16 (hospital day 5) with acute respiratory failure secondary to NSTEMI, interstitial lung disease, and RML/RLL pneumonia. Extubated yesterday, but was unable to maintain oxygenation with progression toward respiratory acidosis. Very little response to IV Lasix 40mg. Discussed with Dr. Vance Landis (pulmonary) and Dr. Ramon Mobley (cardiology). * Continue intravenous vancomycin (day 5) and cefepime (day 4) * Decrease Solu-medrol to 60mg daily dosing; started by Dr. Landis because of concern about laryngeal edema when re-intubated yesterday. I wonder if is a manifestation of CHF rather than an allergic diathesis. 2. Coronary artery disease s/p NSTEMI. Echo on admission showed new apical wall motion abnormality, with EF 35-40%. * Bumex drip 1mg/hr x 6 hours with assessment of urine output * Anticipate cardiac catheterization if able to stabilize * Continue current cardiac meds (Lopressor 25mg BID, Plavix, ASA 81mg). * Renal dosing of Lovenox 3. Hypertension, on Lopressor 4. Hypertriglyceridemia (222), with low total cholesterol (70) on Lipitor 10mg nightly 5. Chronic kidney disease stage III, with mixed acidosis following extubation. Creatinine worse today again, up from 1.14 to 1.58 today. May be worsened by diffuse edema. * Bumex drip as noted above. 6. Interstitial lung disease. * Continue MDI and bronchodilators. 7. Gastroesophageal reflux disease. * Continue Protonix 8. Prophylaxis * Already taking a Protonix for GI prophylaxis * Lovenox SQ for DVT prophylaxis. 9. Disposition: ICU care. Elevated creatinine poses a risk for coronary catheterization. Normally very functional woman with new segmental wall motion abnormality on echocardiography. Merry Munoz MD PhD [phone] Exam/Review of Systems Vital Signs Vitals Vital Signs Date Time Temp Pulse Resp B/P Pulse Ox O2 Delivery O2 Flow Rate FiO2 07/14/16 11:00 61 24 100 40 07/14/16 10:30 140/67 07/14/16 10:00 Mechanical Ventilator 07/14/16 08:00 98.8 Intake and Output 07/13/16 07/13/16 07/14/16 15:00 23:00 07:00 Intake Total 113 ml 1100.216 ml 577.53 ml Output Total 260 ml 175 ml 255 ml Balance -147 ml 925.216 ml 322.53 ml Exam Constitutional: Not responsive to voice. Afebrile. Respiratory: Ventilated on AC14, TV 500, FiO2 30%, PEEP 5. Good air movement, with no wheezing or crackles. Cardiovascular: Symmetric pulses, regular rhythm, normal rate. Gastrointestinal: non-tender, soft, bowel sounds positive. Musculoskeletal: nl extremities to inspection, with no peripheral edema or arthritis. Neurological: Intubated, non-responsive. PERRL. Toes upgoing. No increased deep tendon reflexes or posturing. Results Result Diagram: 07/14/16 0400 07/14/16 1020 Results 24 hrs Laboratory Tests Test 07/13/16 15:11 07/13/16 16:50 07/14/16 04:00 07/14/16 07:00 Arterial Blood HCO3 26.8 H 21.5 L 25.9 Arterial Blood Base Excess -7.9 L -5.5 L 5.0 H Arterial Blood Oxygen Saturation 87.8 L 99.1 97.6 Harish Test ACCEPTAB ACCEPTAB ACCEPTAB Arterial Blood Gas Puncture Site Right Radial Right Radial Right Radial Arterial Blood Carboxyhemoglobin 0.3 0.3 0.2 Arterial Blood Date Drawn 07/13/2016 3:14:57 PM 07/13/2016 4:56:02 PM 07/14/2016 8:10:23 AM Arterial Blood Methemoglobin 0.4 0.4 0.2 Arterial Blood pCO2 (Temp correct) 127.5 *H 48.1 H 26.5 L Arterial Blood pH (Temp corrected) 6.940 *L 7.268 *L 7.608 *H Arterial Blood pO2 (Temp corrected) 86.0 376.9 H 108.5 H Blood Gas A-a O2 Differential 149.4 H 288.0 H 146.2 H Blood Gas Critical Value Read Back SHELIA GARRETT RN Blood Gas Modality NEBULIZER VENT - AC VENT - AC Blood Gas Notified Time 07/13/2016 3:25:16 PM 07/13/2016 5:02:17 PM 07/14/2016 8:40:48 AM Blood Gas Notified Whom AT [facility] Ender ESPINAL Blood Gas Specimen Source Blood arterial Blood arterial Blood arterial Blood Gas Temperature 37.0 37.0 37.0 FiO2 53.0 100.0 40.0 Oxyhemoglobin Percent 87.2 L 98.4 97.2 Total Hemoglobin 12.1 11.7 L 10.6 L Blood Gas Actual Respiration Rate 24 24 Blood Gas Low PEEP Setting 5.0 5.0 Blood Gas Respiration Rate 24.0 24.0 Blood Gas Tidal Volume 350.0 400.0 Anion Gap 15 Basophils # 0.0 Basophils % 0.0 Blood Urea Nitrogen 22 H Calcium Level 5.3 *L Carbon Dioxide Level 19 L Chloride Level 119 H Creatinine 1.14 H Eosinophils # 0.0 Eosinophils % 0.0 Glucose Level 177 Hematocrit 26.1 L Hemoglobin 8.9 L Lymphocytes # 1.1 Lymphocytes % 10.4 L Magnesium Level 1.5 L Mean Corpuscular Hemoglobin 33.6 H Mean Corpuscular Hemoglobin Concent 33.9 Mean Corpuscular Volume 99.0 Mean Platelet Volume 8.2 # Monocytes # 0.2 L Monocytes % 2.3 Neutrophils # 8.9 H Neutrophils % 87.3 H Nucleated Red Blood Cells # 0.0 Nucleated Red Blood Cells % 0.0 Phosphorus Level 2.2 L Platelet Count 198 Potassium Level 2.5 *L Red Blood Count 2.63 L Red Cell Distribution Width 13.2 Sodium Level 150 H Vancomycin Level Trough 10.5 White Blood Count 10.2 # Test 07/14/16 10:20 Anion Gap 15 Blood Urea Nitrogen 31 H Calcium Level 7.4 L Carbon Dioxide Level 26 Chloride Level 114 H Creatinine 1.58 H Glucose Level 223 H Potassium Level 3.9 Sodium Level 151 H Medications Medications Current Medications Ondansetron HCl (Zofran Inj) 4 mg Q6H PRN IV NAUSEA AND/OR VOMITING; Start 07/10 at 11:30 Acetaminophen (Tylenol Liquid) 650 mg Q6H PRN PO PAIN LEVEL 1-3 OR FEVER; Start 07/10/16 at 11:30 Acetaminophen (Tylenol Supp) 650 mg Q4H PRN [place] PAIN LEVEL 1-3 OR FEVER; Start 07/10/16 at 11:30 Docusate Sodium (Colace) 100 mg Q12H PRN PO CONSTIPATION; Start 07/10/16 at 11: 30 Magnesium Hydroxide (Milk Of Mag) 30 ml DAILY PRN PO CONSTIPATION; Start at 11:30 Bisacodyl (Dulcolax Supp) 10 mg DAILY PRN [place] CONSTIPATION; Start 07/10/16 at 11: 30 Pantoprazole 40 mg 40 mg DAILY@06 IV Last administered on 07/14/16 06:03; Admin Dose 40 MG; Start 07/11/16 at 06:00 Cefepime HCl 50 ml @ 100 mls/hr Q24H IVPB Last administered on 07/14/16 09:52 ; Admin Dose 100 MLS/HR; Start 07/11/16 at 09:00 Norepinephrine/ Dextrose (Levophed/D5W) 500 ml @ 1.875 mls/ hr TITRATE IV ; Start 07/10/16 at 13:30 Aspirin (Aspirin) 81 mg DAILY PO Last administered on 07/14/16 08:59; Admin Dose 81 MG; Start 07/11/16 at 09:00 Atorvastatin Calcium (Lipitor) 10 mg QHS PO Last administered on 07/13/16 00:19 ; Admin Dose 10 MG; Start 07/10/16 at 21:00 Clopidogrel Bisulfate (plaVIX) 75 mg DAILY PO Last administered on 07/14/16 08: 58; Admin Dose 75 MG; Start 07/11/16 at 09:00 Ferrous Sulfate (Ferrous Sulfate (Ec)) 325 mg BID PO Last administered on 08:59; Admin Dose 325 MG; Start 07/10/16 at 21:00 Multivit/Ca Carb/ B Cmplx/FA/Prenat (Lindsay-Armando) 1 tab DAILY PO Last administered on 07/14/16 08:59; Admin Dose 1 TAB; Start 07/11/16 at 09:00 Metoprolol Tartrate (Lopressor) 25 mg BID PO Last administered on 07/13/16 08: 49; Admin Dose 25 MG; Start 07/11/16 at 11:00 Morphine Sulfate 2 mg 2 mg Q1H PRN IV PAIN; Start 07/11/16 at 22:00 Sodium Bicarbonate/ Dextrose/Sodium Chloride (Na Bicarb/D5-1/ 2ns) 1,150 ml @ 75 mls/hr [id number] IV Last administered on 07/14/16 12:08; Admin Dose 75 MLS/HR ; Start 07/12/16 at 14:00 Enoxaparin Sodium (Lovenox) 65 mg Q24H SC Last administered on 07/14/16 09:00; Admin Dose 65 MG; Start 07/14/16 at 09:00 Albuterol/ Ipratropium (Duoneb) 3 ml PRN HHN Last administered on 07/13/16 15: 11; Admin Dose 3 ML; Start 07/13/16 at 15:00 Methylprednisolone Sodium Succinate 60 mg 60 mg Q8 IV Last administered on 13:26; Admin Dose 60 MG; Start 07/13/16 at 17:30 Fentanyl 100 ml @ 2.5 mls/hr TITRATE IV ; Start 07/13/16 at 20:30 Vancomycin HCl 250 ml @ 125 mls/hr Q24H IVPB Last administered on 07/14/16 08: 53; Admin Dose 125 MLS/HR; Start 07/14/16 at 08:30 Midazolam HCl (Versed) 50 ml @ 1 mls/hr TITRATE IV Last administered on 13:27; Admin Dose 5 MLS/HR; Start 07/14/16 at 12:00 CARLTON MUNOZ M.D. Jul 14, 2016 14:24
[2016-07-14] MEDS ORDERED: BUMETANIDE 6 MG in DEXTROSE 5% 36 ML IV ONE (16:00)
--- NOTE | 2016-07-14 18:48 | CONS ---
Date/Time of Note Date/Time of Note DATE: 07/14/16 TIME: 18:47 Assessment/Plan Assessment/Plan Additional Assessment/Plan Community-acquired pneumonia, respiratory failure s/p re intubation, Severe sepsis, CAD, ACS, Renal insufficiency and anemia Continue Vent Support and Pulmonary Toiletry Continue Bumex drip Continue beta blockers Continue ASA and Plavix Continue Lipitor Continue Pulmonary Tolietry Consultation Date/Type/Reason Admit Date/Time Jul 10, 2016 at 11:30 Initial Consult Date Type of Consultation: pulmonary Referring Provider: JOB GARCÍA Exam/Review of Systems Vital Signs Vitals Vital Signs Date Time Temp Pulse Resp B/P Pulse Ox O2 Delivery O2 Flow Rate FiO2 07/14/16 17:00 54 16 109/51 100 07/14/16 17:00 40 07/14/16 16:00 99.4 Mechanical Ventilator Intake and Output 07/13/16 07/13/16 07/14/16 15:00 23:00 07:00 Intake Total 113 ml 1100.216 ml 577.53 ml Output Total 260 ml 175 ml 255 ml Balance -147 ml 925.216 ml 322.53 ml Exam Sedated and intubated No JVD CVS: RRR, no m/r/g Chest Mechanical breath sounds heard bilaterally Abdomen soft BS heard Extremity No Pedal edema Results Result Diagram: 07/14/16 0400 07/14/16 1020 Results 24 hrs Laboratory Tests Test 07/14/16 04:00 07/14/16 07:00 07/14/16 10:20 Anion Gap 15 15 Basophils # 0.0 Basophils % 0.0 Blood Urea Nitrogen 22 H 31 H Calcium Level 5.3 *L 7.4 L Carbon Dioxide Level 19 L 26 Chloride Level 119 H 114 H Creatinine 1.14 H 1.58 H Eosinophils # 0.0 Eosinophils % 0.0 Glucose Level 177 223 H Hematocrit 26.1 L Hemoglobin 8.9 L Lymphocytes # 1.1 Lymphocytes % 10.4 L Magnesium Level 1.5 L Mean Corpuscular Hemoglobin 33.6 H Mean Corpuscular Hemoglobin Concent 33.9 Mean Corpuscular Volume 99.0 Mean Platelet Volume 8.2 # Monocytes # 0.2 L Monocytes % 2.3 Neutrophils # 8.9 H Neutrophils % 87.3 H Nucleated Red Blood Cells # 0.0 Nucleated Red Blood Cells % 0.0 Phosphorus Level 2.2 L Platelet Count 198 Potassium Level 2.5 *L 3.9 Red Blood Count 2.63 L Red Cell Distribution Width 13.2 Sodium Level 150 H 151 H Vancomycin Level Trough 10.5 White Blood Count 10.2 # Arterial Blood HCO3 25.9 Arterial Blood Base Excess 5.0 H Arterial Blood Oxygen Saturation 97.6 Harish Test ACCEPTAB Arterial Blood Gas Puncture Site Right Radial Arterial Blood Carboxyhemoglobin 0.2 Arterial Blood Date Drawn 07/14/2016 8:10:23 AM Arterial Blood Methemoglobin 0.2 Arterial Blood pCO2 (Temp correct) 26.5 L Arterial Blood pH (Temp corrected) 7.608 *H Arterial Blood pO2 (Temp corrected) 108.5 H Blood Gas A-a O2 Differential 146.2 H Blood Gas Actual Respiration Rate 24 Blood Gas Critical Value Read Back Maria Guadalupe GARRETT RN Blood Gas Low PEEP Setting 5.0 Blood Gas Modality VENT - AC Blood Gas Notified Time 07/14/2016 8:40:48 AM Blood Gas Notified Whom Ender ESPINAL Blood Gas Respiration Rate 24.0 Blood Gas Specimen Source Blood arterial Blood Gas Temperature 37.0 Blood Gas Tidal Volume 400.0 FiO2 40.0 Oxyhemoglobin Percent 97.2 Total Hemoglobin 10.6 L Medications Medications Current Medications Ondansetron HCl (Zofran Inj) 4 mg Q6H PRN IV NAUSEA AND/OR VOMITING; Start 07/10 at 11:30 Acetaminophen (Tylenol Liquid) 650 mg Q6H PRN PO PAIN LEVEL 1-3 OR FEVER; Start 07/10/16 at 11:30 Acetaminophen (Tylenol Supp) 650 mg Q4H PRN [place] PAIN LEVEL 1-3 OR FEVER; Start 07/10/16 at 11:30 Docusate Sodium (Colace) 100 mg Q12H PRN PO CONSTIPATION; Start 07/10/16 at 11: 30 Magnesium Hydroxide (Milk Of Mag) 30 ml DAILY PRN PO CONSTIPATION; Start at 11:30 Bisacodyl (Dulcolax Supp) 10 mg DAILY PRN [place] CONSTIPATION; Start 07/10/16 at 11: 30 Pantoprazole 40 mg 40 mg DAILY@06 IV Last administered on 07/14/16t 06:03; Admin Dose 40 MG; Start 07/11/16 at 06:00 Cefepime HCl 50 ml @ 100 mls/hr Q24H IVPB Last administered on 07/14/16 09:52 ; Admin Dose 100 MLS/HR; Start 07/11/16 at 09:00 Norepinephrine/ Dextrose (Levophed/D5W) 500 ml @ 1.875 mls/ hr TITRATE IV ; Start 07/10/16 at 13:30 Aspirin (Aspirin) 81 mg DAILY PO Last administered on 07/14/16 08:59; Admin Dose 81 MG; Start 07/11/16 at 09:00 Atorvastatin Calcium (Lipitor) 10 mg QHS PO Last administered on 07/13/16 00:19 ; Admin Dose 10 MG; Start 07/10/16 at 21:00 Clopidogrel Bisulfate (plaVIX) 75 mg DAILY PO Last administered on 07/14/16 08: 58; Admin Dose 75 MG; Start 07/11/16 at 09:00 Ferrous Sulfate (Ferrous Sulfate (Ec)) 325 mg BID PO Last administered on 08:59; Admin Dose 325 MG; Start 07/10/16 at 21:00 Multivit/Ca Carb/ B Cmplx/FA/Prenat (Lindsay-Armando) 1 tab DAILY PO Last administered on 07/14/16 08:59; Admin Dose 1 TAB; Start 07/11/16 at 09:00 Metoprolol Tartrate (Lopressor) 25 mg BID PO Last administered on 07/13/16 08: 49; Admin Dose 25 MG; Start 07/11/16 at 11:00 Morphine Sulfate 2 mg 2 mg Q1H PRN IV PAIN; Start 07/11/16 at 22:00 Sodium Bicarbonate/ Dextrose/Sodium Chloride (Na Bicarb/D5-1/ 2ns) 1,150 ml @ 75 mls/hr [id number] IV Last administered on 07/14/16 12:08; Admin Dose 75 MLS/HR ; Start 07/12/16 at 14:00 Enoxaparin Sodium (Lovenox) 65 mg Q24H SC Last administered on 07/14/16 09:00; Admin Dose 65 MG; Start 07/14/16 at 09:00 Albuterol/ Ipratropium (Duoneb) 3 ml PRN HHN Last administered on 07/13/16 15: 11; Admin Dose 3 ML; Start 07/13/16 at 15:00 Methylprednisolone Sodium Succinate 60 mg 60 mg Q8 IV Last administered on 13:26; Admin Dose 60 MG; Start 07/13/16 at 17:30 Fentanyl 100 ml @ 2.5 mls/hr TITRATE IV ; Start 07/13/16 at 20:30 Vancomycin HCl 250 ml @ 125 mls/hr Q24H IVPB Last administered on 07/14/16 08: 53; Admin Dose 125 MLS/HR; Start 07/14/16 at 08:30 Midazolam HCl 50 ml @ 1 mls/hr TITRATE IV Last administered on 07/14/16 13:27; Admin Dose 5 MLS/HR; Start 07/14/16 at 12:00 Bumetanide/ Dextrose (Bumex/D5W) 60 ml @ 10 mls/hr Q6H ONCE IV Last administered on 07/14/16 16:37; Admin Dose 10 MLS/HR; Start 07/14/16 at 16:00; Stop 07/14/16 at 21:59 LUCY BELLE M.D. Jul 14, 2016 18:48
[2016-07-14] MEDS: FENTAnyl (DRIP) 1000 mcg/100mL 100 ML IV SCH (19:57)
[2016-07-14] MEDS: ATORVASTATIN 10 MG TAB PO SCH (20:48)
[2016-07-15] VITALS (86 sets, daily range): BP systolic 95–168; BP diastolic 46–86; PULSE 45–81; RESP 11–18
[2016-07-15] MEDS: IPRATROPIUM (HFA) 12.9 GM INHALER INH SCH ×6 (01:30→20:52)
[2016-07-15] MEDS: ALBUTEROL HFA 8 GM INHALER INH SCH ×6 (01:30→20:52)
[2016-07-15] MEDS: MIDAZOLAM (DRIP) 50 mg/50 mL 50 ML IV SCH ×2 (04:12→15:08)
[2016-07-15 05:39] LABS: HEMATOCRIT 25.2 % (37.0-47.0); HEMOGLOBIN 8.7 g/dl (12.0-16.0); LYMPHOCYTES # 1.3 10^3/ul (0.8-2.9); LYMPHOCYTES % 12.1 % (15.0-51.0); MEAN CORPUSCULAR HEMOGLOBIN 34.2 pg (29.0-33.0); MEAN CORPUSCULAR HGB CONC 34.5 g/dl (32.0-37.0); MEAN CORPUSCULAR VOLUME 99.1 fl (82.0-101.0); MEAN PLATELET VOLUME 8.6 fl (7.4-10.4); MONOCYTE # 0.9 10^3/ul (0.3-0.9); MONOCYTES % 8.8 % (0.0-11.0); NEUTROPHIL # 8.3 10^3/ul (1.6-7.5); NEUTROPHILS % 79.1 % (39.0-77.0); PLATELET COUNT 192 10^3/UL (140-440); RED BLOOD COUNT 2.54 10^6/ul (4.20-5.40); RED CELL DISTRIBUTION WIDTH 13.1 % (11.5-14.5); UNCORRECTED WBC 10.5 10^3/ul (4.8-10.8); WHITE BLOOD COUNT 10.5 10^3/ul (4.8-10.8)
[2016-07-15 05:41] LABS: POTASSIUM 3.2 mmol/L (3.5-5.1)
[2016-07-15 05:44] LABS: CREATININE 1.66 mg/dl (0.44-1.00)
[2016-07-15 05:45] LABS: CALCIUM 7.5 mg/dl (8.4-10.2); PHOSPHORUS 2.8 mg/dl (2.5-4.9)
[2016-07-15] MEDS: PANTOPRAZOLE 40 MG INJ IV SCH (05:52)
[2016-07-15 06:18] LABS: CONDITION 1
--- NOTE | 2016-07-15 08:05 | RADRPT ---
PROCEDURE: XR Chest 1 view. CLINICAL INDICATION: Shortness of breath, pneumonia, congestive heart failure TECHNIQUE: AP views of the chest were obtained. COMPARISON: Yesterday FINDINGS: The heart is large. Calcified atherosclerosis is noted in the aorta. Endotracheal and nasogastric t ubes are stable and appear in grossly appropriate location. Right-sided central line is unchanged. Central pulmonary vascular congestion and interstitial prominence in both lungs is unchanged. Righ t lower lobe infiltrates combined small pleural effusion are stable. Small left pleural effusion wi th associated basilar atelectasis is unchanged. The osseous structures are unchanged. IMPRESSION: Cardiomegaly with calcified atherosclerosis in the aorta. Stable central pulmonary vascular congestion and interstitial prominence in both lungs. Stable right lower lobe infiltrates combined with small pleural effusion. Stable small left pleural effusion with associated basilar atelectasis. RPTAT: AA .Junaid Pantoja MD, Date Time Electronically viewed and signed by .Junaid Pantoja MD, on 07/15/2016 08:05 .P/
[2016-07-15 08:07] LABS: AADO2 Arterial 110.9 mmHg (7.0-24.0); Allen Test ACCEPTAB; Arterial Base Excess 7.5 mmol/L (-3.0-3); Arterial COHb 0.3 % (0.0-3.0); Arterial Fraction of Oxyhgb 97.7 % (93.0-99.0); Arterial HCO3 29.6 mmol/L (22.0-26.0); Arterial MetHb 0.2 % (0.0-1.5); Arterial Total Hemglobin 10.9 g/dl (12.0-18.0); MODE VENT - AC
[2016-07-15] MEDS: CLOPIDOGREL 75 MG TAB PO SCH (08:21)
[2016-07-15] MEDS: CEFEPIME 2GM/50 ML (PMX) 50 ML IVPB SCH (08:21)
[2016-07-15] MEDS: ASPIRIN 81 MG TAB PO SCH (08:21)
[2016-07-15] MEDS: FERROUS SULFATE (EC) 325 MG TAB PO SCH ×2 (08:21→20:26)
[2016-07-15] MEDS: MULTIVIT/CA CARB/B CMPLX/FA TAB PO SCH (08:21)
[2016-07-15] MEDS: METHYLPREDNISOLONE 125 MG INJ IV SCH (08:22)
--- NOTE | 2016-07-15 08:37 | CONS ---
Date/Time of Note Date/Time of Note DATE: 07/15/16 TIME: 08:31 Assessment/Plan Assessment/Plan Additional Assessment/Plan Assessment and recommendations; next 1. Patient admitted with pneumonia. Failed expiration trial due to development of vocal cord edema requiring reintubation was 5.5 endotracheal tube. 2. Renal insufficiency likely related to some element of intravascular volume depletion. With hypernatremia. 3. This upon CT examination performed on. This month there is some element of atelectasis involving the right lower lobe possibly underlying mucous plugging. Next 4. Patient currently is being hyperventilated with ensuing respiratory alkalosis. Hold further diuretics. Increase free water two 250 mL's every 6 hours from 100 mL every 6 hours. Continue current antibiotics. Systemic steroids. Patient would benefit from bronchoscopy. However, would need reintubation with a bigger size endotracheal tube. Did have a detailed discussion with the patient's granddaughter at bedside who does have the POA discussed the procedure would depend upon reduction in vocal cord swelling that would facilitate replacement of endotracheal tube with a larger bore tube. if the family is agreeable I am going to have the procedure planned for tomorrow morning and the patient will need to have a direct laryngoscopy done prior to endotracheal tube replacement. Consultation Date/Type/Reason Admit Date/Time Jul 10, 2016 at 11:30 Initial Consult Date Type of Consultation: pulmonary Referring Provider: JOB GARCÍA 24 HR Interval Summary Free Text/Dictation Patient condition remains critical. Patient had to be reintubated because of vocal cord edema 5.5 size tube was utilized for intubation and per nurse it was a difficult intubation. Patient is somewhat responsive. On Versed drip for sedation. Has remained hemodynamically stable. Next General examination elderly lady, awake somewhat responsive currently in no distress. Exam/Review of Systems Vital Signs Vitals Vital Signs Date Time Temp Pulse Resp B/P Pulse Ox O2 Delivery O2 Flow Rate FiO2 07/15/16 07:45 51 16 100 07/15/16 07:30 144/63 07/15/16 07:00 Mechanical Ventilator 07/15/16 05:22 40 07/15/16 04:00 98.1 Intake and Output 07/14/16 07/14/16 07/15/16 15:00 23:00 07:00 Intake Total 1161.16 ml 577.0 ml 420.0 ml Output Total 180 ml 1270 ml 1100 ml Balance 981.16 ml -693.0 ml -680.0 ml Exam Current ventilator settings are AC of 16, tidal volume 400, PEEP of 5, 40% FiO2. HEENT examination; supple neck, has bilateral intraocular lens implants. Orally intubated. Supple neck. No lymphadenopathy. No neck masses. Chest examination; diminished but clear breath sounds. S1-S2 audible, no murmurs. Regular rate and rhythm. Abdomen examination; soft, no organomegaly. Bowel sounds audible. Nondistended. Extremity examination; no peripheral edema. FIRST AID INSTRUCTOR examination; patient is partly sedated. Results Result Diagram: 07/15/16 0430 07/15/16 0430 Results 24 hrs Laboratory Tests Test 07/14/16 10:20 07/14/16 21:01 07/15/16 04:30 07/15/16 07:00 Anion Gap 15 15 Blood Urea Nitrogen 31 H 40 H Calcium Level 7.4 L 7.5 L Carbon Dioxide Level 26 32 H Chloride Level 114 H 107 Creatinine 1.58 H 1.66 H Glucose Level 223 H 200 Potassium Level 3.9 3.2 L Sodium Level 151 H 151 H Bedside Glucose 260 H Basophils # 0.0 Basophils % 0.0 Eosinophils # 0.0 Eosinophils % 0.0 Hematocrit 25.2 L Hemoglobin 8.7 L Lymphocytes # 1.3 Lymphocytes % 12.1 L Magnesium Level 2.0 Mean Corpuscular Hemoglobin 34.2 H Mean Corpuscular Hemoglobin Concent 34.5 Mean Corpuscular Volume 99.1 Mean Platelet Volume 8.6 Monocytes # 0.9 Monocytes % 8.8 Neutrophils # 8.3 H Neutrophils % 79.1 H Nucleated Red Blood Cells # 0.0 Nucleated Red Blood Cells % 0.0 Phosphorus Level 2.8 Platelet Count 192 Red Blood Count 2.54 L Red Cell Distribution Width 13.1 White Blood Count 10.5 Arterial Blood HCO3 29.6 H Arterial Blood Base Excess 7.5 H Arterial Blood Oxygen Saturation 98.2 Harish Test ACCEPTAB Arterial Blood Gas Puncture Site Right Radial Arterial Blood Carboxyhemoglobin 0.3 Arterial Blood Date Drawn 07/15/2016 7:50:23 AM Arterial Blood Methemoglobin 0.2 Arterial Blood pCO2 (Temp correct) 33.1 L Arterial Blood pH (Temp corrected) 7.570 *H Arterial Blood pO2 (Temp corrected) 136.2 H Blood Gas A-a O2 Differential 110.9 H Blood Gas Actual Respiration Rate 16 Blood Gas Critical Value Read Back A VIVIANA BASS Blood Gas Low PEEP Setting 5.0 Blood Gas Modality VENT - AC Blood Gas Notified Time 07/15/2016 8:06:29 AM Blood Gas Notified Whom JLD Blood Gas Respiration Rate 16.0 Blood Gas Specimen Source Blood arterial Blood Gas Temperature 37.0 Blood Gas Tidal Volume 400.0 FiO2 40.0 Oxyhemoglobin Percent 97.7 Total Hemoglobin 10.9 L Medications Medications Current Medications Ondansetron HCl (Zofran Inj) 4 mg Q6H PRN IV NAUSEA AND/OR VOMITING; Start 07/10 at 11:30 Acetaminophen (Tylenol Liquid) 650 mg Q6H PRN PO PAIN LEVEL 1-3 OR FEVER; Start 07/10/16 at 11:30 Acetaminophen (Tylenol Supp) 650 mg Q4H PRN [place] PAIN LEVEL 1-3 OR FEVER; Start 07/10/16 at 11:30 Docusate Sodium (Colace) 100 mg Q12H PRN PO CONSTIPATION; Start 07/10/16 at 11: 30 Magnesium Hydroxide (Milk Of Mag) 30 ml DAILY PRN PO CONSTIPATION; Start at 11:30 Bisacodyl (Dulcolax Supp) 10 mg DAILY PRN [place] CONSTIPATION; Start 07/10/16 at 11: 30 Pantoprazole 40 mg 40 mg DAILY@06 IV Last administered on 07/15/16 05:52; Admin Dose 40 MG; Start 07/11/16 at 06:00 Cefepime HCl 50 ml @ 100 mls/hr Q24H IVPB Last administered on 07/14/16 09:52 ; Admin Dose 100 MLS/HR; Start 07/11/16 at 09:00 Norepinephrine/ Dextrose (Levophed/D5W) 500 ml @ 1.875 mls/ hr TITRATE IV ; Start 07/10/16 at 13:30 Aspirin (Aspirin) 81 mg DAILY PO Last administered on 07/14/16 08:59; Admin Dose 81 MG; Start 07/11/16 at 09:00 Atorvastatin Calcium (Lipitor) 10 mg QHS PO Last administered on 07/14/16 20:48 ; Admin Dose 10 MG; Start 07/10/16 at 21:00 Clopidogrel Bisulfate (plaVIX) 75 mg DAILY PO Last administered on 07/14/16 08: 58; Admin Dose 75 MG; Start 07/11/16 at 09:00 Ferrous Sulfate (Ferrous Sulfate (Ec)) 325 mg BID PO Last administered on 20:48; Admin Dose 325 MG; Start 07/10/16 at 21:00 Multivit/Ca Carb/ B Cmplx/FA/Prenat (Lindsay-Armando) 1 tab DAILY PO Last administered on 07/14/16 08:59; Admin Dose 1 TAB; Start 07/11/16 at 09:00 Metoprolol Tartrate (Lopressor) 25 mg BID PO Last administered on 07/14/16 20: 48; Admin Dose 25 MG; Start 07/11/16 at 11:00 Morphine Sulfate (morphine) 2 mg Q1H PRN IV PAIN; Start 07/11/16 at 22:00 Enoxaparin Sodium (Lovenox) 65 mg Q24H SC Last administered on 07/14/16 09:00; Admin Dose 65 MG; Start 07/14/16 at 09:00 Albuterol/ Ipratropium 3 ml 3 ml PRN HHN Last administered on 07/13/16 15:11; Admin Dose 3 ML; Start 07/13/16 at 15:00 Fentanyl 100 ml @ 2.5 mls/hr TITRATE IV Last administered on 07/14/16 19:57; Admin Dose 1 MLS/HR; Start 07/13/16 at 20:30 Vancomycin HCl 250 ml @ 125 mls/hr Q24H IVPB Last administered on 07/14/16 08: 53; Admin Dose 125 MLS/HR; Start 07/14/16 at 08:30 Midazolam HCl (Versed) 50 ml @ 1 mls/hr TITRATE IV Last administered on 04:12; Admin Dose 7 MLS/HR; Start 07/14/16 at 12:00 Methylprednisolone Sodium Succinate (Solu-Medrol) 60 mg DAILY IV ; Start at 09:00 MANDO AMARO Jul 15, 2016 08:37
[2016-07-15] MEDS: METOPROLOL 25 MG TAB PO SCH ×2 (09:00→20:26)
[2016-07-15] MEDS: VANCOMYCIN 1 GM in NS 250 ML IVPB SCH (09:18)
[2016-07-15] MEDS: ENOXAPARIN 80 MG/0.8 ML SYG SC SCH (09:29)
[2016-07-15] MEDS ORDERED: POTASSIUM CHLORIDE 250 ML IVPB ONE (10:00)
--- NOTE | 2016-07-15 10:27 | PN ---
Date/Time of Note Date/Time of Note DATE: 07/15/16 TIME: 09:54 Assessment/Plan VTE Prophylaxis VTE Prophylaxis Intervention: LMWH (treatment dose ) Lines/Catheters IV [facility] Saline Lock Urinary Cath still in place: Yes Reason Cath still needed: other (indicate) (monitor UOP while intubated ) Assessment/Plan Assessment/Plan 81-year-old female with: 1. Acute respiratory failure with known interstitial lung disease and previous episodes of bronchitis, admitted with RML and RLL pneumonia which probably precipitated her respiratory failure. Unfortunately had to be reintubated because of laryngeal edema and stridor On steroids and back vent Per family now DNR Continue IV Abx and followed by Boby from pulmonary. 2. Coronary artery disease. S/p NSTEMI Appreciate recommendations from Dr Grimes 2D echo with new apical wall motion abnormality, may need angio later on if renal function permits otherwise continue medical management. Continue current cardiac medication and recheck cardiac enzymes and change on Lovenox to prophylactic dose if OK with Cardio and CE down. 3. Hypertension, back on meds 4. Hyperlipidemia. Continue statin therapy. Lipid panel done 5. Chronic kidney disease stage III, renal function OK post Bumex gtt yesterday , now off diuretics, replete K today. Continue to monitor daily. Now with mild metabolic alkalosis, OFF bicarb gtt 6. Interstitial lung disease. Continue MDI and bronchodilators while being intubated. on CPAP trial again, ? need for steroids if bronchospasm or difficulty extubated. 7. Gastroesophageal reflux disease. Continue proton pump inhibitors. PROPHYLAXIS: Patient already on proton pump inhibitors for GI prophylaxis and Lovenox. DISPOSITION: ICU care, Reintubated but now per family DNR. Off diuretics and monitoring renal function Subjective 24 Hr Interval Summary Free Text/Dictation Patient had to be re intubated this weekend after being extubated briefly due to laryngeal edema She is on Steroids now Per discussion with grand daughter who is the family denial management representative, patient is now DNR Exam/Review of Systems Vital Signs Vitals Vital Signs Date Time Temp Pulse Resp B/P Pulse Ox O2 Delivery O2 Flow Rate FiO2 07/15/16 09:30 73 15 155/73 100 07/15/16 07:00 Mechanical Ventilator 07/15/16 05:22 40 07/15/16 04:00 98.1 Intake and Output 2/507/14/16 07/15/16 15:00 23:00 07:00 Intake Total 1161.16 ml 577.0 ml 420.0 ml Output Total 180 ml 1270 ml 1100 ml Balance 981.16 ml -693.0 ml -680.0 ml Exam Constitutional: other (sedated and vented ) Respiratory: diminished breath sounds (bases bilaterally ), other (on Vent ) Cardiovascular: nl pulses, regular rate and rhythm Gastrointestinal: non-tender, soft Musculoskeletal: nl extremities to inspection, other (no edema, clubbing or cyanosis ) Extremities: normal pulses Neurological: other (sedated and intubated ) Results Result Diagram: 07/15/16 0430 07/15/16 0430 Results 24 hrs Laboratory Tests Test 07/14/16 10:20 07/14/16 21:01 07/15/16 04:30 07/15/16 07:00 Anion Gap 15 15 Blood Urea Nitrogen 31 H 40 H Calcium Level 7.4 L 7.5 L Carbon Dioxide Level 26 32 H Chloride Level 114 H 107 Creatinine 1.58 H 1.66 H Glucose Level 223 H 200 Potassium Level 3.9 3.2 L Sodium Level 151 H 151 H Bedside Glucose 260 H Basophils # 0.0 Basophils % 0.0 Eosinophils # 0.0 Eosinophils % 0.0 Hematocrit 25.2 L Hemoglobin 8.7 L Lymphocytes # 1.3 Lymphocytes % 12.1 L Magnesium Level 2.0 Mean Corpuscular Hemoglobin 34.2 H Mean Corpuscular Hemoglobin Concent 34.5 Mean Corpuscular Volume 99.1 Mean Platelet Volume 8.6 Monocytes # 0.9 Monocytes % 8.8 Neutrophils # 8.3 H Neutrophils % 79.1 H Nucleated Red Blood Cells # 0.0 Nucleated Red Blood Cells % 0.0 Phosphorus Level 2.8 Platelet Count 192 Red Blood Count 2.54 L Red Cell Distribution Width 13.1 White Blood Count 10.5 Arterial Blood HCO3 29.6 H Arterial Blood Base Excess 7.5 H Arterial Blood Oxygen Saturation 98.2 Harish Test ACCEPTAB Arterial Blood Gas Puncture Site Right Radial Arterial Blood Carboxyhemoglobin 0.3 Arterial Blood Date Drawn 07/15/2016 7:50:23 AM Arterial Blood Methemoglobin 0.2 Arterial Blood pCO2 (Temp correct) 33.1 L Arterial Blood pH (Temp corrected) 7.570 *H Arterial Blood pO2 (Temp corrected) 136.2 H Blood Gas A-a O2 Differential 110.9 H Blood Gas Actual Respiration Rate 16 Blood Gas Critical Value Read Back A VIVIANA BASS Blood Gas Low PEEP Setting 5.0 Blood Gas Modality VENT - AC Blood Gas Notified Time 07/15/2016 8:06:29 AM Blood Gas Notified Whom JLD Blood Gas Respiration Rate 16.0 Blood Gas Specimen Source Blood arterial Blood Gas Temperature 37.0 Blood Gas Tidal Volume 400.0 FiO2 40.0 Oxyhemoglobin Percent 97.7 Total Hemoglobin 10.9 L Medications Medications Current Medications Ondansetron HCl (Zofran Inj) 4 mg Q6H PRN IV NAUSEA AND/OR VOMITING; Start 07/10 at 11:30 Acetaminophen (Tylenol Liquid) 650 mg Q6H PRN PO PAIN LEVEL 1-3 OR FEVER; Start 07/10/16 at 11:30 Acetaminophen (Tylenol Supp) 650 mg Q4H PRN [place] PAIN LEVEL 1-3 OR FEVER; Start 07/10/16 at 11:30 Docusate Sodium (Colace) 100 mg Q12H PRN PO CONSTIPATION; Start 07/10/16 at 11: 30 Magnesium Hydroxide (Milk Of Mag) 30 ml DAILY PRN PO CONSTIPATION; Start at 11:30 Bisacodyl (Dulcolax Supp) 10 mg DAILY PRN [place] CONSTIPATION; Start 07/10/16 at 11: 30 Pantoprazole 40 mg 40 mg DAILY@06 IV Last administered on 07/15/16 05:52; Admin Dose 40 MG; Start 07/11/16 at 06:00 Cefepime HCl 50 ml @ 100 mls/hr Q24H IVPB Last administered on 07/15/16 08:21 ; Admin Dose 100 MLS/HR; Start 07/11/16 at 09:00 Norepinephrine/ Dextrose (Levophed/D5W) 500 ml @ 1.875 mls/ hr TITRATE IV ; Start 07/10/16 at 13:30 Aspirin (Aspirin) 81 mg DAILY PO Last administered on 07/15/16 08:21; Admin Dose 81 MG; Start 07/11/16 at 09:00 Atorvastatin Calcium (Lipitor) 10 mg QHS PO Last administered on 07/14/16 20:48 ; Admin Dose 10 MG; Start 07/10/16 at 21:00 Clopidogrel Bisulfate (plaVIX) 75 mg DAILY PO Last administered on 07/15/16 08: 21; Admin Dose 75 MG; Start 07/11/16 at 09:00 Ferrous Sulfate (Ferrous Sulfate (Ec)) 325 mg BID PO Last administered on 08:21; Admin Dose 325 MG; Start 07/10/16 at 21:00 Multivit/Ca Carb/ B Cmplx/FA/Prenat (Lindsay-Armando) 1 tab DAILY PO Last administered on 07/15/16 08:21; Admin Dose 1 TAB; Start 07/11/16 at 09:00 Metoprolol Tartrate (Lopressor) 25 mg BID PO Last administered on 07/14/16 20: 48; Admin Dose 25 MG; Start 07/11/16 at 11:00 Morphine Sulfate (morphine) 2 mg Q1H PRN IV PAIN; Start 07/11/16 at 22:00 Enoxaparin Sodium (Lovenox) 65 mg Q24H SC Last administered on 07/15/16 09:29; Admin Dose 65 MG; Start 07/14/16 at 09:00 Albuterol/ Ipratropium 3 ml 3 ml PRN HHN Last administered on 07/13/16 15:11; Admin Dose 3 ML; Start 07/13/16 at 15:00 Fentanyl 100 ml @ 2.5 mls/hr TITRATE IV Last administered on 07/14/16 19:57; Admin Dose 1 MLS/HR; Start 07/13/16 at 20:30 Vancomycin HCl 250 ml @ 125 mls/hr Q24H IVPB Last administered on 07/15/16 09: 18; Admin Dose 125 MLS/HR; Start 07/14/16 at 08:30 Midazolam HCl (Versed) 50 ml @ 1 mls/hr TITRATE IV Last administered on 04:12; Admin Dose 7 MLS/HR; Start 07/14/16 at 12:00 Methylprednisolone Sodium Succinate (Solu-Medrol) 60 mg DAILY IV Last administered on 07/15/16 08:22; Admin Dose 60 MG; Start 07/15/16 at 09:00 JOB GARCÍA Jul 15, 2016 10:04
[2016-07-15 12:03] LABS: TROPONIN-I 0.066 ng/ml (0.00-0.12)
[2016-07-15 12:25] LABS: CK-MB 1.06 ng/ml (0.0-2.4)
--- NOTE | 2016-07-15 12:48 | CONS ---
Date/Time of Note Date/Time of Note DATE: 07/15/16 TIME: 12:44 Assessment/Plan Assessment/Plan Chief Complaint/Hosp Course IMPRESSION: 1. Positive troponin concerning for non-ST elevation myocardial infarction.- now trended negative 2. Abnormal electrocardiogram with anteroseptal Q's. 3. Hypotension, currently improving. 4. History of dyslipidemia. 5. Respiratory failure, status post re-intubation secondary to laryngeal edema 6. Renal failure-acute on chronic renal failure 7. Pneumonia. 8. Anemia. 9. Leukocytosis. 10.Cardiomyopathy-LVEF 35-40 by echo this admit Recc: -Tele -serial ecg';s -Continue BB as tolerated and will write for low dose hydralazine afterload reduction in lieu of ACEI secondary to renal failure -Continue ASA/plavix -OK to decrease lovenox to prophylaxis doses -Continue statin -Continue abx's and f/u cx data -Follow volume status and renal function closely -trend cardiac enzymes -Wean vent as tolerated Problems: Consultation Date/Type/Reason Admit Date/Time Jul 10, 2016 at 11:30 Initial Consult Date 07/12/16 Type of Consultation: Cardiology Reason for Consultation Nstemi Referring Provider: JOB GARCÍA Exam/Review of Systems Vital Signs Vitals Vital Signs Date Time Temp Pulse Resp B/P Pulse Ox O2 Delivery O2 Flow Rate FiO2 07/15/16 12:15 47 12 122/54 100 07/15/16 11:45 40 07/15/16 07:00 Mechanical Ventilator 07/15/16 04:00 98.1 Intake and Output 07/14/16 07/14/16 07/15/16 15:00 23:00 07:00 Intake Total 1161.16 ml 577.0 ml 420.0 ml Output Total 180 ml 1270 ml 1100 ml Balance 981.16 ml -693.0 ml -680.0 ml Exam Review of Systems: CONSTITUTIONAL: No fevers, chills. PULMONARY: intubated CARDIOVASCULAR: No obvious chest pain/palpitations GASTROINTESTINAL: No nausea/vomiting. GENITOURINARY: No hematuria/dysuria. MUSCULOSKELETAL: No obvious myagias/arthalgias. PSYCHIATRIC: No docuemented depression. NEUROLOGIC: No focal deficits Constitutional: other (sedated) Psych: no complaints ENMT: mucosa pink and moist Neck: jvd (9 cm water), supple Respiratory: diminished breath sounds (at bases/B) Cardiovascular: regular rate and rhythm Gastrointestinal: non-tender, soft Musculoskeletal: muscle tone (normnal) Extremities: edema (trace) Neurological: other (sedated) Results Result Diagram: 07/15/16 0430 07/15/16 0430 Results 24 hrs Laboratory Tests Test 07/14/16 21:01 07/15/16 04:30 07/15/16 07:00 07/15/16 11:28 Bedside Glucose 260 H Anion Gap 15 Basophils # 0.0 Basophils % 0.0 Blood Urea Nitrogen 40 H Calcium Level 7.5 L Carbon Dioxide Level 32 H Chloride Level 107 Creatinine 1.66 H Eosinophils # 0.0 Eosinophils % 0.0 Glucose Level 200 Hematocrit 25.2 L Hemoglobin 8.7 L Lymphocytes # 1.3 Lymphocytes % 12.1 L Magnesium Level 2.0 Mean Corpuscular Hemoglobin 34.2 H Mean Corpuscular Hemoglobin Concent 34.5 Mean Corpuscular Volume 99.1 Mean Platelet Volume 8.6 Monocytes # 0.9 Monocytes % 8.8 Neutrophils # 8.3 H Neutrophils % 79.1 H Nucleated Red Blood Cells # 0.0 Nucleated Red Blood Cells % 0.0 Phosphorus Level 2.8 Platelet Count 192 Potassium Level 3.2 L Red Blood Count 2.54 L Red Cell Distribution Width 13.1 Sodium Level 151 H White Blood Count 10.5 Arterial Blood HCO3 29.6 H Arterial Blood Base Excess 7.5 H Arterial Blood Oxygen Saturation 98.2 Harish Test ACCEPTAB Arterial Blood Gas Puncture Site Right Radial Arterial Blood Carboxyhemoglobin 0.3 Arterial Blood Date Drawn 07/15/2016 7:50:23 AM Arterial Blood Methemoglobin 0.2 Arterial Blood pCO2 (Temp correct) 33.1 L Arterial Blood pH (Temp corrected) 7.570 *H Arterial Blood pO2 (Temp corrected) 136.2 H Blood Gas A-a O2 Differential 110.9 H Blood Gas Actual Respiration Rate 16 Blood Gas Critical Value Read Back A VIVIANA BASS Blood Gas Low PEEP Setting 5.0 Blood Gas Modality VENT - AC Blood Gas Notified Time 07/15/2016 8:06:29 AM Blood Gas Notified Whom JLD Blood Gas Respiration Rate 16.0 Blood Gas Specimen Source Blood arterial Blood Gas Temperature 37.0 Blood Gas Tidal Volume 400.0 FiO2 40.0 Oxyhemoglobin Percent 97.7 Total Hemoglobin 10.9 L Creatine Kinase 23 Creatine Kinase Index 4.6 Creatinine Kinase MB (Mass) 1.06 Troponin I 0.066 Medications Medications Current Medications Ondansetron HCl (Zofran Inj) 4 mg Q6H PRN IV NAUSEA AND/OR VOMITING; Start 07/10 at 11:30 Acetaminophen (Tylenol Liquid) 650 mg Q6H PRN PO PAIN LEVEL 1-3 OR FEVER; Start 07/10/16 at 11:30 Acetaminophen (Tylenol Supp) 650 mg Q4H PRN [place] PAIN LEVEL 1-3 OR FEVER; Start 07/10/16 at 11:30 Docusate Sodium (Colace) 100 mg Q12H PRN PO CONSTIPATION; Start 07/10/16 at 11: 30 Magnesium Hydroxide (Milk Of Mag) 30 ml DAILY PRN PO CONSTIPATION; Start at 11:30 Bisacodyl (Dulcolax Supp) 10 mg DAILY PRN [place] CONSTIPATION; Start 07/10/16 at 11: 30 Pantoprazole 40 mg 40 mg DAILY@06 IV Last administered on 07/15/16 05:52; Admin Dose 40 MG; Start 07/11/16 at 06:00 Cefepime HCl 50 ml @ 100 mls/hr Q24H IVPB Last administered on 07/15/16 08:21 ; Admin Dose 100 MLS/HR; Start 07/11/16 at 09:00 Norepinephrine/ Dextrose (Levophed/D5W) 500 ml @ 1.875 mls/ hr TITRATE IV ; Start 07/10/16 at 13:30 Aspirin (Aspirin) 81 mg DAILY PO Last administered on 07/15/16 08:21; Admin Dose 81 MG; Start 07/11/16 at 09:00 Atorvastatin Calcium (Lipitor) 10 mg QHS PO Last administered on 07/14/16 20:48 ; Admin Dose 10 MG; Start 07/10/16 at 21:00 Clopidogrel Bisulfate (plaVIX) 75 mg DAILY PO Last administered on 07/15/16 08: 21; Admin Dose 75 MG; Start 07/11/16 at 09:00 Ferrous Sulfate (Ferrous Sulfate (Ec)) 325 mg BID PO Last administered on 08:21; Admin Dose 325 MG; Start 07/10/16 at 21:00 Multivit/Ca Carb/ B Cmplx/FA/Prenat (Lindsay-Armando) 1 tab DAILY PO Last administered on 07/15/16 08:21; Admin Dose 1 TAB; Start 07/11/16 at 09:00 Metoprolol Tartrate (Lopressor) 25 mg BID PO Last administered on 07/14/16 20: 48; Admin Dose 25 MG; Start 07/11/16 at 11:00 Morphine Sulfate (morphine) 2 mg Q1H PRN IV PAIN; Start 07/11/16 at 22:00 Enoxaparin Sodium (Lovenox) 65 mg Q24H SC Last administered on 07/15/16 09:29; Admin Dose 65 MG; Start 07/14/16 at 09:00 Albuterol/ Ipratropium 3 ml 3 ml PRN HHN Last administered on 07/13/16 15:11; Admin Dose 3 ML; Start 07/13/16 at 15:00 Fentanyl 100 ml @ 2.5 mls/hr TITRATE IV Last administered on 07/14/16 19:57; Admin Dose 1 MLS/HR; Start 07/13/16 at 20:30 Vancomycin HCl 250 ml @ 125 mls/hr Q24H IVPB Last administered on 07/15/16 09: 18; Admin Dose 125 MLS/HR; Start 07/14/16 at 08:30 Midazolam HCl (Versed) 50 ml @ 1 mls/hr TITRATE IV Last administered on 04:12; Admin Dose 7 MLS/HR; Start 07/14/16 at 12:00 Methylprednisolone Sodium Succinate 60 mg 60 mg DAILY IV Last administered on 08:22; Admin Dose 60 MG; Start 07/15/16 at 09:00 Potassium Chloride (KCl 40 MEQ/250 ML NS) 250 ml @ 62.5 mls/hr ONCE ONCE IVPB Last administered on 07/15/16 11:58; Admin Dose 62.5 MLS/HR; Start 07/15/16 at 10:00; Stop 07/15/16 at 13:59 NATHALIE PENA Jul 15, 2016 12:48
[2016-07-15] MEDS: FENTAnyl (DRIP) 1000 mcg/100mL 100 ML IV SCH (18:35)
[2016-07-15] MEDS: ATORVASTATIN 10 MG TAB PO SCH (20:26)
[2016-07-16] VITALS (73 sets, daily range): BP systolic 104–154; BP diastolic 45–116; PULSE 43–86; RESP 11–17
[2016-07-16] MEDS: ALBUTEROL HFA 8 GM INHALER INH SCH ×6 (01:49→20:43)
[2016-07-16] MEDS: IPRATROPIUM (HFA) 12.9 GM INHALER INH SCH ×6 (01:49→20:43)
[2016-07-16] MEDS: MIDAZOLAM (DRIP) 50 mg/50 mL 50 ML IV SCH ×2 (04:24→18:06)
[2016-07-16 04:59] LABS: BASOPHILS % 0.1 % (0.0-2.0); HEMATOCRIT 25.8 % (37.0-47.0); HEMOGLOBIN 8.6 g/dl (12.0-16.0); LYMPHOCYTES # 1.5 10^3/ul (0.8-2.9); LYMPHOCYTES % 13.9 % (15.0-51.0); MEAN CORPUSCULAR HEMOGLOBIN 33.9 pg (29.0-33.0); MEAN CORPUSCULAR HGB CONC 33.5 g/dl (32.0-37.0); MEAN CORPUSCULAR VOLUME 101.3 fl (82.0-101.0); MEAN PLATELET VOLUME 8.5 fl (7.4-10.4); MONOCYTE # 0.9 10^3/ul (0.3-0.9); MONOCYTES % 8.3 % (0.0-11.0); NEUTROPHIL # 8.4 10^3/ul (1.6-7.5); NEUTROPHILS % 77.7 % (39.0-77.0); PLATELET COUNT 189 10^3/UL (140-440); RED BLOOD COUNT 2.55 10^6/ul (4.20-5.40); RED CELL DISTRIBUTION WIDTH 13.6 % (11.5-14.5); UNCORRECTED WBC 10.9 10^3/ul (4.8-10.8); WHITE BLOOD COUNT 10.9 10^3/ul (4.8-10.8)
[2016-07-16 05:00] LABS: CREATININE 1.82 mg/dl (0.44-1.00)
[2016-07-16 05:01] LABS: CALCIUM 7.5 mg/dl (8.4-10.2)
[2016-07-16] MEDS: PANTOPRAZOLE 40 MG INJ IV SCH (05:35)
[2016-07-16 05:49] LABS: MAGNESIUM 2.2 mg/dl (1.7-2.5); PHOSPHORUS 3.9 mg/dl (2.5-4.9)
[2016-07-16 05:57] LABS: CONDITION 1; LH ANALYZER COMMENTS 1
--- NOTE | 2016-07-16 08:21 | CONS ---
Date/Time of Note Date/Time of Note DATE: 07/16/16 TIME: 08:12 Assessment/Plan Assessment/Plan Additional Assessment/Plan Assessment and recommendations; 1. Patient admitted with bilateral pneumonia failed extubation trial due to development of vocal cord edema requiring reintubation with a size 5.5 endotracheal tube per medical record it was a difficult re-intubation. 2. According to patient's granddaughter the patient does have excellent overall clinical status until this recent illness. Next Continue current treatment. Patient will need to have a direct laryngoscopy done for evaluation of vocal cord edema. Patient may need to have a bronchoscopy performed, however I am going to wait for today's chest x-ray to be performed before deciding on that. The patient's granddaughter who has the POA has already consented to the procedure. It was explained to her in detail yesterday. if the patient does need a bronchoscopy, she will need to have a larger size endotracheal tube placed and that will depend entirely upon the degree of vocal cord edema that would safely facilitate tube replacement. Consultation Date/Type/Reason Admit Date/Time Jul 10, 2016 at 11:30 Type of Consultation: Pulmonary/critical care Referring Provider: JOB GARCÍA 24 HR Interval Summary Free Text/Dictation Patient condition remains critical. Still requiring full ventilator support. Despite being on small dose of Versed patient is somewhat arousable. Has remained hemodynamically stable. General examination; elderly lady, or intubated. Mildly sedated. No distress noted. Exam/Review of Systems Vital Signs Vitals Vital Signs Date Time Temp Pulse Resp B/P Pulse Ox O2 Delivery O2 Flow Rate FiO2 07/16/16 07:00 49 12 107/48 100 Mechanical Ventilator 07/16/16 05:22 40 07/16/16 04:00 98.2 Intake and Output 07/15/16 07/15/16 07/16/16 15:00 23:00 07:00 Intake Total 1714.5 ml 470.5 ml 363.0 ml Output Total 390 ml 200 ml 115 ml Balance 1324.5 ml 270.5 ml 248.0 ml Exam HEENT examination; supple neck, or intubated with size 5.5 endotracheal tube. Pupils are midsize. No neck masses. No thyromegaly. No neck bruits. No stridor heard around the trachea. Chest examination; diminished but clear breath sounds bilaterally. S1-S2 audible, regular rate and rhythm. Abdomen examination; scaphoid, no organomegaly. Bowel sounds audible. Extremity examination; no peripheral edema. OBSTETRICS GYNECOLOGY MD examination; patient is somewhat arousable and is sedated. Ventilator settings; assist control 12, tidal volume 400, PEEP of 5, 30% FiO2. Chest x-ray from today is pending. Results Result Diagram: 07/16/16 0400 07/16/16 0400 Results 24 hrs Laboratory Tests Test 07/15/16 11:28 07/16/16 04:00 07/16/16 07:00 Creatine Kinase 23 Creatine Kinase Index 4.6 Creatinine Kinase MB (Mass) 1.06 Troponin I 0.066 Anion Gap 14 Basophils # 0.0 Basophils % 0.1 Blood Morphology Comment Blood Urea Nitrogen 51 H Calcium Level 7.5 L Carbon Dioxide Level 32 H Chloride Level 109 Creatinine 1.82 H Eosinophils # 0.0 Eosinophils % 0.0 Glucose Level 150 Hematocrit 25.8 L Hemoglobin 8.6 L Lymphocytes # 1.5 Lymphocytes % 13.9 L Magnesium Level 2.2 Mean Corpuscular Hemoglobin 33.9 H Mean Corpuscular Hemoglobin Concent 33.5 Mean Corpuscular Volume 101.3 H Mean Platelet Volume 8.5 Monocytes # 0.9 Monocytes % 8.3 Neutrophils # 8.4 H Neutrophils % 77.7 H Nucleated Red Blood Cells # 0.0 Nucleated Red Blood Cells % 0.0 Phosphorus Level 3.9 Platelet Count 189 Potassium Level 4.0 Red Blood Count 2.55 L Red Cell Distribution Width 13.6 Sodium Level 151 H White Blood Count 10.9 H Vancomycin Level Trough 20.2 *H Medications Medications Current Medications Ondansetron HCl (Zofran Inj) 4 mg Q6H PRN IV NAUSEA AND/OR VOMITING; Start 07/10 at 11:30 Acetaminophen (Tylenol Liquid) 650 mg Q6H PRN PO PAIN LEVEL 1-3 OR FEVER; Start 07/10/16 at 11:30 Acetaminophen (Tylenol Supp) 650 mg Q4H PRN IN PAIN LEVEL 1-3 OR FEVER; Start 07/10/16 at 11:30 Docusate Sodium (Colace) 100 mg Q12H PRN PO CONSTIPATION; Start 07/10/16 at 11: 30 Magnesium Hydroxide (Milk Of Mag) 30 ml DAILY PRN PO CONSTIPATION; Start at 11:30 Bisacodyl (Dulcolax Supp) 10 mg DAILY PRN IN CONSTIPATION; Start 07/10/16 at 11: 30 Pantoprazole 40 mg 40 mg DAILY@06 IV Last administered on 07/16/16 05:35; Admin Dose 40 MG; Start 07/11/16 at 06:00 Cefepime HCl 50 ml @ 100 mls/hr Q24H IVPB Last administered on 07/15/16 08:21 ; Admin Dose 100 MLS/HR; Start 07/11/16 at 09:00 Norepinephrine/ Dextrose (Levophed/D5W) 500 ml @ 1.875 mls/ hr TITRATE IV ; Start 07/10/16 at 13:30 Aspirin (Aspirin) 81 mg DAILY PO Last administered on 07/15/16 08:21; Admin Dose 81 MG; Start 07/11/16 at 09:00 Atorvastatin Calcium (Lipitor) 10 mg QHS PO Last administered on 07/15/16 20:26 ; Admin Dose 10 MG; Start 07/10/16 at 21:00 Clopidogrel Bisulfate (plaVIX) 75 mg DAILY PO Last administered on 07/15/16 08: 21; Admin Dose 75 MG; Start 07/11/16 at 09:00 Ferrous Sulfate (Ferrous Sulfate (Ec)) 325 mg BID PO Last administered on 20:26; Admin Dose 325 MG; Start 07/10/16 at 21:00 Multivit/Ca Carb/ B Cmplx/FA/Prenat (Lindsay-Armando) 1 tab DAILY PO Last administered on 07/15/16 08:21; Admin Dose 1 TAB; Start 07/11/16 at 09:00 Metoprolol Tartrate (Lopressor) 25 mg BID PO Last administered on 07/14/16 20: 48; Admin Dose 25 MG; Start 07/11/16 at 11:00 Morphine Sulfate (morphine) 2 mg Q1H PRN IV PAIN; Start 07/11/16 at 22:00 Enoxaparin Sodium (Lovenox) 65 mg Q24H SC Last administered on 07/15/16 09:29; Admin Dose 65 MG; Start 07/14/16 at 09:00 Albuterol/ Ipratropium 3 ml 3 ml PRN HHN Last administered on 07/13/16 15:11; Admin Dose 3 ML; Start 07/13/16 at 15:00 Fentanyl 100 ml @ 2.5 mls/hr TITRATE IV Last administered on 07/15/16 18:35; Admin Dose 2.5 MLS/HR; Start 07/13/16 at 20:30 Vancomycin HCl 250 ml @ 125 mls/hr Q24H IVPB Last administered on 07/15/16 09: 18; Admin Dose 125 MLS/HR; Start 07/14/16 at 08:30; Status Future Hold Midazolam HCl (Versed) 50 ml @ 1 mls/hr TITRATE IV Last administered on 04:24; Admin Dose 4 MLS/HR; Start 07/14/16 at 12:00 Methylprednisolone Sodium Succinate (Solu-Medrol) 60 mg DAILY IV Last administered on 07/15/16 08:22; Admin Dose 60 MG; Start 07/15/16 at 09:00 MANDO AMARO Jul 16, 2016 08:21
[2016-07-16] MEDS: CEFEPIME 2GM/50 ML (PMX) 50 ML IVPB SCH (08:35)
[2016-07-16] MEDS: METHYLPREDNISOLONE 125 MG INJ IV SCH (08:35)
--- NOTE | 2016-07-16 10:38 | PN ---
Date/Time of Note Date/Time of Note DATE: 07/16/16 TIME: 10:33 Assessment/Plan VTE Prophylaxis VTE Prophylaxis Intervention: LMWH Lines/Catheters IV Catheter Type (from Nrs): Saline Lock Urinary Cath still in place: Yes Reason Cath still needed: other (indicate) (critical illness) Assessment/Plan Assessment/Plan 1. pulm: resp failure, cont vent support, likely to extubate when vocal cord edema resolved, await bronch (b) RLL PNA, cont abx c) interstital lung disease 2. cards: nSTEMI, cont med manage, not a good candidate for intervention in light of renal faunction (b) chf, received bumex, now with NA up, gentle rehydration 3. renal: CKD, cont to monitor 4. t=proph: lovenox and protonix Subjective 24 Hr Interval Summary Free Text/Dictation intubated, sedated, no response to voice, grandaughter at bedside no new concerns Exam/Review of Systems Vital Signs Vitals Vital Signs Date Time Temp Pulse Resp B/P Pulse Ox O2 Delivery O2 Flow Rate FiO2 07/16/16 07:00 49 12 107/48 100 Mechanical Ventilator 07/16/16 05:22 40 07/16/16 04:00 98.2 Intake and Output 07/15/16 07/15/16 07/16/16 15:00 23:00 07:00 Intake Total 1714.5 ml 470.5 ml 363.0 ml Output Total 390 ml 200 ml 115 ml Balance 1324.5 ml 270.5 ml 248.0 ml Exam Constitutional: non-verbal Respiratory: clear to auscultation (ant) Cardiovascular: regular rate and rhythm Gastrointestinal: soft Results Result Diagram: 07/16/16 0400 07/16/16 0400 Results 24 hrs Laboratory Tests Test 07/15/16 11:28 07/16/16 04:00 07/16/16 07:00 Creatine Kinase 23 Creatine Kinase Index 4.6 Creatinine Kinase MB (Mass) 1.06 Troponin I 0.066 Anion Gap 14 Basophils # 0.0 Basophils % 0.1 Blood Morphology Comment Blood Urea Nitrogen 51 H Calcium Level 7.5 L Carbon Dioxide Level 32 H Chloride Level 109 Creatinine 1.82 H Eosinophils # 0.0 Eosinophils % 0.0 Glucose Level 150 Hematocrit 25.8 L Hemoglobin 8.6 L Lymphocytes # 1.5 Lymphocytes % 13.9 L Magnesium Level 2.2 Mean Corpuscular Hemoglobin 33.9 H Mean Corpuscular Hemoglobin Concent 33.5 Mean Corpuscular Volume 101.3 H Mean Platelet Volume 8.5 Monocytes # 0.9 Monocytes % 8.3 Neutrophils # 8.4 H Neutrophils % 77.7 H Nucleated Red Blood Cells # 0.0 Nucleated Red Blood Cells % 0.0 Phosphorus Level 3.9 Platelet Count 189 Potassium Level 4.0 Red Blood Count 2.55 L Red Cell Distribution Width 13.6 Sodium Level 151 H White Blood Count 10.9 H Vancomycin Level Trough 20.2 *H Medications Medications Current Medications Ondansetron HCl (Zofran Inj) 4 mg Q6H PRN IV NAUSEA AND/OR VOMITING; Start 07/10 at 11:30 Acetaminophen (Tylenol Liquid) 650 mg Q6H PRN PO PAIN LEVEL 1-3 OR FEVER; Start 07/10/16 at 11:30 Acetaminophen (Tylenol Supp) 650 mg Q4H PRN ID PAIN LEVEL 1-3 OR FEVER; Start 07/10/16 at 11:30 Docusate Sodium (Colace) 100 mg Q12H PRN PO CONSTIPATION; Start 07/10/16 at 11: 30 Magnesium Hydroxide (Milk Of Mag) 30 ml DAILY PRN PO CONSTIPATION; Start at 11:30 Bisacodyl (Dulcolax Supp) 10 mg DAILY PRN ID CONSTIPATION; Start 07/10/16 at 11: 30 Pantoprazole 40 mg 40 mg DAILY@06 IV Last administered on 07/16/16 05:35; Admin Dose 40 MG; Start 07/11/16 at 06:00 Cefepime HCl 50 ml @ 100 mls/hr Q24H IVPB Last administered on 07/16/16 08:35 ; Admin Dose 100 MLS/HR; Start 07/11/16 at 09:00 Norepinephrine/ Dextrose (Levophed/D5W) 500 ml @ 1.875 mls/ hr TITRATE IV ; Start 07/10/16 at 13:30 Aspirin (Aspirin) 81 mg DAILY PO Last administered on 07/15/16 08:21; Admin Dose 81 MG; Start 07/11/16 at 09:00 Atorvastatin Calcium (Lipitor) 10 mg QHS PO Last administered on 07/15/16 20:26 ; Admin Dose 10 MG; Start 07/10/16 at 21:00 Clopidogrel Bisulfate (plaVIX) 75 mg DAILY PO Last administered on 07/15/16 08: 21; Admin Dose 75 MG; Start 07/11/16 at 09:00 Ferrous Sulfate (Ferrous Sulfate (Ec)) 325 mg BID PO Last administered on 20:26; Admin Dose 325 MG; Start 07/10/16 at 21:00 Multivit/Ca Carb/ B Cmplx/FA/Prenat (Lindsay-Armando) 1 tab DAILY PO Last administered on 07/15/16 08:21; Admin Dose 1 TAB; Start 07/11/16 at 09:00 Metoprolol Tartrate (Lopressor) 25 mg BID PO Last administered on 07/14/16 20: 48; Admin Dose 25 MG; Start 07/11/16 at 11:00 Morphine Sulfate (morphine) 2 mg Q1H PRN IV PAIN; Start 07/11/16 at 22:00 Enoxaparin Sodium (Lovenox) 65 mg Q24H SC Last administered on 07/15/16 09:29; Admin Dose 65 MG; Start 07/14/16 at 09:00 Albuterol/ Ipratropium 3 ml 3 ml PRN HHN Last administered on 07/13/16 15:11; Admin Dose 3 ML; Start 07/13/16 at 15:00 Fentanyl 100 ml @ 2.5 mls/hr TITRATE IV Last administered on 07/15/16 18:35; Admin Dose 2.5 MLS/HR; Start 07/13/16 at 20:30 Vancomycin HCl 250 ml @ 125 mls/hr Q24H IVPB Last administered on 07/15/16 09: 18; Admin Dose 125 MLS/HR; Start 07/14/16 at 08:30; Status Future Hold Midazolam HCl (Versed) 50 ml @ 1 mls/hr TITRATE IV Last administered on 04:24; Admin Dose 4 MLS/HR; Start 07/14/16 at 12:00 Methylprednisolone Sodium Succinate (Solu-Medrol) 60 mg DAILY IV Last administered on 07/16/16 08:35; Admin Dose 60 MG; Start 07/15/16 at 09:00 YANG HOLLEY MD Jul 16, 2016 10:38
--- NOTE | 2016-07-16 10:59 | CONS ---
Date/Time of Note Date/Time of Note DATE: 07/16/16 TIME: 10:57 Assessment/Plan Assessment/Plan Additional Assessment/Plan 1. Positive troponin concerning for non-ST elevation myocardial infarction.- now trended negative - no intervention planned now 2. Abnormal electrocardiogram with anteroseptal Q's- no CP noted, pt less responsive today 3. Hypotension, currently improving - well rx now. 4. History of dyslipidemia. 5. Respiratory failure, status post re-intubation secondary to laryngeal edema - stil lintubated, pulm team follows 6. Renal failure-acute on chronic renal failure 7. Pneumonia- on antibx 8. Anemia. 9. Leukocytosis. 10.Cardiomyopathy-LVEF 35-40 by echo this admit - fairly euvolemic by exam. Consultation Date/Type/Reason Admit Date/Time Jul 10, 2016 at 11:30 Initial Consult Date Type of Consultation: Pulmonary/critical care Referring Provider: JOB GARCÍA 24 HR Interval Summary Free Text/Dictation No acute change - less responsive today - con't resp Rx - no ectopy on tele ROS: No fever, no chills, no nausea, no vomiting, no diarrhea/constipation No recent weight changes No chest pain, no PND, no orthopnea No dizziness, blurred vision No thirst, no heat or cold intolerance (per nurse) Exam/Review of Systems Vital Signs Vitals Vital Signs Date Time Temp Pulse Resp B/P Pulse Ox O2 Delivery O2 Flow Rate FiO2 07/16/16 07:00 49 12 107/48 100 Mechanical Ventilator 07/16/16 05:22 40 07/16/16 04:00 98.2 Intake and Output 07/15/16 07/15/16 07/16/16 15:00 23:00 07:00 Intake Total 1714.5 ml 470.5 ml 363.0 ml Output Total 390 ml 200 ml 115 ml Balance 1324.5 ml 270.5 ml 248.0 ml Exam General: WN/WD/NAD, AOx 0 HEENT: Unicetric/atraumatic/EOMI (does not follow commands) NECK: JVD elevated, no thyromegaly Lymph: no lymphadenopathy, intub HEART: regular with no S3, II/ systolic murmur at apex LUNGS: Coarse sounds ABD: soft, NT, ND, +BS : Intact Neuro: non focal SKIN: chronic changes EXT: trace edema Results Result Diagram: 07/16/16 0400 07/16/16 0400 Results 24 hrs Laboratory Tests Test 07/15/16 11:28 07/16/16 04:00 07/16/16 07:00 Creatine Kinase 23 Creatine Kinase Index 4.6 Creatinine Kinase MB (Mass) 1.06 Troponin I 0.066 Anion Gap 14 Basophils # 0.0 Basophils % 0.1 Blood Morphology Comment Blood Urea Nitrogen 51 H Calcium Level 7.5 L Carbon Dioxide Level 32 H Chloride Level 109 Creatinine 1.82 H Eosinophils # 0.0 Eosinophils % 0.0 Glucose Level 150 Hematocrit 25.8 L Hemoglobin 8.6 L Lymphocytes # 1.5 Lymphocytes % 13.9 L Magnesium Level 2.2 Mean Corpuscular Hemoglobin 33.9 H Mean Corpuscular Hemoglobin Concent 33.5 Mean Corpuscular Volume 101.3 H Mean Platelet Volume 8.5 Monocytes # 0.9 Monocytes % 8.3 Neutrophils # 8.4 H Neutrophils % 77.7 H Nucleated Red Blood Cells # 0.0 Nucleated Red Blood Cells % 0.0 Phosphorus Level 3.9 Platelet Count 189 Potassium Level 4.0 Red Blood Count 2.55 L Red Cell Distribution Width 13.6 Sodium Level 151 H White Blood Count 10.9 H Vancomycin Level Trough 20.2 *H Medications Medications Current Medications Ondansetron HCl (Zofran Inj) 4 mg Q6H PRN IV NAUSEA AND/OR VOMITING; Start 07/10 at 11:30 Acetaminophen (Tylenol Liquid) 650 mg Q6H PRN PO PAIN LEVEL 1-3 OR FEVER; Start 07/10/16 at 11:30 Acetaminophen (Tylenol Supp) 650 mg Q4H PRN OR PAIN LEVEL 1-3 OR FEVER; Start 07/10/16 at 11:30 Docusate Sodium (Colace) 100 mg Q12H PRN PO CONSTIPATION; Start 07/10/16 at 11: 30 Magnesium Hydroxide (Milk Of Mag) 30 ml DAILY PRN PO CONSTIPATION; Start at 11:30 Bisacodyl (Dulcolax Supp) 10 mg DAILY PRN OR CONSTIPATION; Start 07/10/16 at 11: 30 Pantoprazole 40 mg 40 mg DAILY@06 IV Last administered on 07/16/16t 05:35; Admin Dose 40 MG; Start 07/11/16 at 06:00 Cefepime HCl 50 ml @ 100 mls/hr Q24H IVPB Last administered on 07/16/16 08:35 ; Admin Dose 100 MLS/HR; Start 07/11/16 at 09:00 Norepinephrine/ Dextrose (Levophed/D5W) 500 ml @ 1.875 mls/ hr TITRATE IV ; Start 07/10/16 at 13:30 Aspirin (Aspirin) 81 mg DAILY PO Last administered on 07/15/16 08:21; Admin Dose 81 MG; Start 07/11/16 at 09:00 Atorvastatin Calcium (Lipitor) 10 mg QHS PO Last administered on 07/15/16 20:26 ; Admin Dose 10 MG; Start 07/10/16 at 21:00 Clopidogrel Bisulfate (plaVIX) 75 mg DAILY PO Last administered on 07/15/16 08: 21; Admin Dose 75 MG; Start 07/11/16 at 09:00 Ferrous Sulfate (Ferrous Sulfate (Ec)) 325 mg BID PO Last administered on 20:26; Admin Dose 325 MG; Start 07/10/16 at 21:00 Multivit/Ca Carb/ B Cmplx/FA/Prenat (Lindsay-Armando) 1 tab DAILY PO Last administered on 07/15/16 08:21; Admin Dose 1 TAB; Start 07/11/16 at 09:00 Metoprolol Tartrate (Lopressor) 25 mg BID PO Last administered on 07/14/16 20: 48; Admin Dose 25 MG; Start 07/11/16 at 11:00 Morphine Sulfate (morphine) 2 mg Q1H PRN IV PAIN; Start 07/11/16 at 22:00 Enoxaparin Sodium (Lovenox) 65 mg Q24H SC Last administered on 07/15/16 09:29; Admin Dose 65 MG; Start 07/14/16 at 09:00 Albuterol/ Ipratropium 3 ml 3 ml PRN HHN Last administered on 07/13/16 15:11; Admin Dose 3 ML; Start 07/13/16 at 15:00 Fentanyl 100 ml @ 2.5 mls/hr TITRATE IV Last administered on 07/15/16 18:35; Admin Dose 2.5 MLS/HR; Start 07/13/16 at 20:30 Vancomycin HCl 250 ml @ 125 mls/hr Q24H IVPB Last administered on 07/15/16 09: 18; Admin Dose 125 MLS/HR; Start 07/14/16 at 08:30; Status Future Hold Midazolam HCl (Versed) 50 ml @ 1 mls/hr TITRATE IV Last administered on 04:24; Admin Dose 4 MLS/HR; Start 07/14/16 at 12:00 Methylprednisolone Sodium Succinate (Solu-Medrol) 60 mg DAILY IV Last administered on 07/16/16 08:35; Admin Dose 60 MG; Start 07/15/16 at 09:00 SABINA CHEN MD Jul 16, 2016 10:59
--- NOTE | 2016-07-16 11:30 | RADRPT ---
PROCEDURE: XR Chest AP portable CLINICAL INDICATION: Pneumonia TECHNIQUE: An AP portable radiograph of the chest was submitted. COMPARISON: 07/15/2016 FINDINGS: Support Hardware: The endotracheal tube, the NG tube, and the right subclavian central venous cathet er are stable and positioning. Cardiovascular: The heart remains very mildly enlarged, the aorta appears atherosclerotic and the pu lmonary vasculature remains congested. Lung Pichardo: There is been no significant interval change with regards to the bilateral mid to lower lung zone infiltrates. Pleural Spaces: A small left pleural fluid accumulation is again suspected. Osseous Structures: Degenerative spine changes are again noted. Soft Tissues: The soft tissues appear generous. IMPRESSION: 1. The tubes and lines are stable and positioning. 2. Persistent mild cardiomegaly with atherosclerotic changes to the aorta and pulmonary vascular co ngestion. 3. No significant interval change to the bilateral infiltrates suspicious for pulmonary edema. 4. A small left pleural fluid accumulation is again suggested. Physician Bret Date Time Electronically viewed and signed by Physician Bret on 07/16/2016 11:29 /
[2016-07-16] MEDS: CLOPIDOGREL 75 MG TAB PO SCH (12:01)
[2016-07-16] MEDS: METOPROLOL 25 MG TAB PO SCH ×2 (12:01→20:24)
[2016-07-16] MEDS: ASPIRIN 81 MG TAB PO SCH (12:01)
[2016-07-16] MEDS: MULTIVIT/CA CARB/B CMPLX/FA TAB PO SCH (12:02)
[2016-07-16] MEDS: FERROUS SULFATE (EC) 325 MG TAB PO SCH ×2 (12:02→20:24)
[2016-07-16] MEDS: ENOXAPARIN 80 MG/0.8 ML SYG SC SCH (12:04)
[2016-07-16] MEDS: FENTAnyl (DRIP) 1000 mcg/100mL 100 ML IV SCH (19:47)
[2016-07-16] MEDS: ATORVASTATIN 10 MG TAB PO SCH (20:24)
[2016-07-17] VITALS (76 sets, daily range): BP systolic 106–173; BP diastolic 43–79; PULSE 42–84; RESP 8–26
[2016-07-17] MEDS: IPRATROPIUM (HFA) 12.9 GM INHALER INH SCH ×6 (01:27→21:35)
[2016-07-17] MEDS: ALBUTEROL HFA 8 GM INHALER INH SCH ×6 (01:27→21:35)
[2016-07-17 04:46] LABS: BASOPHILS % 0.1 % (0.0-2.0); EOSINOPHILS % 0.1 % (0.0-7.0); HEMATOCRIT 25.4 % (37.0-47.0); HEMOGLOBIN 8.6 g/dl (12.0-16.0); LYMPHOCYTES # 1.7 10^3/ul (0.8-2.9); LYMPHOCYTES % 15.8 % (15.0-51.0); MEAN CORPUSCULAR HEMOGLOBIN 33.7 pg (29.0-33.0); MEAN CORPUSCULAR HGB CONC 33.6 g/dl (32.0-37.0); MEAN CORPUSCULAR VOLUME 100.3 fl (82.0-101.0); MEAN PLATELET VOLUME 8.4 fl (7.4-10.4); MONOCYTE # 0.8 10^3/ul (0.3-0.9); MONOCYTES % 7.5 % (0.0-11.0); NEUTROPHIL # 8.3 10^3/ul (1.6-7.5); NEUTROPHILS % 76.5 % (39.0-77.0); PLATELET COUNT 198 10^3/UL (140-440); RED BLOOD COUNT 2.54 10^6/ul (4.20-5.40); RED CELL DISTRIBUTION WIDTH 13.4 % (11.5-14.5); UNCORRECTED WBC 10.9 10^3/ul (4.8-10.8); WHITE BLOOD COUNT 10.9 10^3/ul (4.8-10.8)
[2016-07-17 05:01] LABS: CONDITION 1
[2016-07-17 05:23] LABS: CREATININE 1.72 mg/dl (0.44-1.00)
[2016-07-17 05:24] LABS: CALCIUM 7.9 mg/dl (8.4-10.2)
[2016-07-17] MEDS: PANTOPRAZOLE 40 MG INJ IV SCH (05:29)
[2016-07-17] MEDS: MIDAZOLAM (DRIP) 50 mg/50 mL 50 ML IV SCH ×3 (05:29→17:41)
[2016-07-17] MEDS ORDERED: SUCCINYLCHOLINE CHLORIDE 100 MG/5 ML SYG IV ONE (07:00)
--- NOTE | 2016-07-17 07:49 | RADRPT ---
PROCEDURE: XR Chest. CLINICAL INDICATION: Follow-up laryngeal edema. TECHNIQUE: Single frontal view of the chest was obtained. COMPARISON: 07/16/2016. FINDINGS: There is persistent cardiomegaly with calcification and unfolding of the thoracic aorta. Pulmonary vasculature remains mildly prominent. Diffuse mild interstitial infiltrates are present. No airspa ce consolidation is seen. There are tiny bilateral pleural effusions, right greater than left. End otracheal tube is in the mid trachea. Nasogastric tube and right central venous catheter appear unc hanged. IMPRESSION: 1. Continued vascular congestion and interstitial edema. 2. No confluent airspace process identified. 3. Small bilateral pleural effusions persist, right greater than left. 4. Mild cardiomegaly and aortic atherosclerosis. RPTAT: [facility] Physician Juan Francisco Date Time Electronically viewed and signed by Harjeet García Physician on 07/17/2016 07:49 /
--- NOTE | 2016-07-17 08:16 | CONS ---
Date/Time of Note Date/Time of Note DATE: 07/17/16 TIME: 08:12 Assessment/Plan Assessment/Plan Additional Assessment/Plan Current ventilator settings are assist control of 12, tidal volume 400, PEEP of 5, 30% FiO2. Assessment and recommendations; next 1. Vision admitted with respiratory failure due to severe bilateral pneumonia. 2. Failed extubation trial due to rapid development of vocal cord edema, requiring reintubation with a 5.5 endotracheal tube. Next 3. Some element of subsegmental atelectasis possibly from underlying mucous buildup however chest x-ray from today showing continued improvement. 4. Patient at this time does not warrant a bronchoscopy. 5. Stable hypertension. 6. Stable mild renal insufficiency. Continue current treatment. Continue current antibiotics and other supportive measures. I am going to take a direct look in the pharynx with the laryngoscope to evaluate the degree of vocal cord edema. Weaning from mechanical ventilation will depend upon resolution of edema. I did have a detailed discussion the patient's granddaughter at bedside and answered all her questions. Consultation Date/Type/Reason Admit Date/Time Jul 10, 2016 at 11:30 Type of Consultation: Pulmonary/critical care Referring Provider: JOB GARCÍA 24 HR Interval Summary Free Text/Dictation Patient condition remains critical. However has remained hemodynamically stable. Still on mechanical ventilation. General examination; elderly lady, or intubated, sedated and currently in no distress. Exam/Review of Systems Vital Signs Vitals Vital Signs Date Time Temp Pulse Resp B/P Pulse Ox O2 Delivery O2 Flow Rate FiO2 07/17/16 06:30 58 12 131/56 99 07/17/16 06:00 Mechanical Ventilator 07/17/16 04:50 30 07/17/16 04:00 98.3 Intake and Output 07/16/16 07/16/16 07/17/16 15:00 23:00 07:00 Intake Total 472.0 ml 495 ml 105.0 ml Output Total 230 ml 225 ml 155 ml Balance 242.0 ml 270 ml -50.0 ml Exam HEENT examination; supple neck, no JVD. No lymphadenopathy. Patient is edentulous. Pupils are small bilaterally. No neck masses. No thyromegaly. Chest examination; diminished but clear breath sounds. S1-S2 audible, no murmurs. Regular rate and rhythm. Abdomen examination; soft, nondistended. No organomegaly. Bowel sounds audible. Extremity examination; no peripheral edema. 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 Results Result Diagram: 07/17/16 0400 07/17/16 0400 Results 24 hrs Laboratory Tests Test 07/17/16 04:00 Anion Gap 15 Basophils # 0.0 Basophils % 0.1 Blood Urea Nitrogen 61 H Calcium Level 7.9 L Carbon Dioxide Level 30 Chloride Level 107 Creatinine 1.72 H Eosinophils # 0.0 Eosinophils % 0.1 Glucose Level 128 Hematocrit 25.4 L Hemoglobin 8.6 L Lymphocytes # 1.7 Lymphocytes % 15.8 Mean Corpuscular Hemoglobin 33.7 H Mean Corpuscular Hemoglobin Concent 33.6 Mean Corpuscular Volume 100.3 Mean Platelet Volume 8.4 Monocytes # 0.8 Monocytes % 7.5 Neutrophils # 8.3 H Neutrophils % 76.5 Nucleated Red Blood Cells # 0.0 Nucleated Red Blood Cells % 0.0 Platelet Count 198 Potassium Level 4.0 Red Blood Count 2.54 L Red Cell Distribution Width 13.4 Sodium Level 148 H White Blood Count 10.9 H Medications Medications Current Medications Ondansetron HCl (Zofran Inj) 4 mg Q6H PRN IV NAUSEA AND/OR VOMITING; Start 07/10 at 11:30 Acetaminophen (Tylenol Liquid) 650 mg Q6H PRN PO PAIN LEVEL 1-3 OR FEVER; Start 07/10/16 at 11:30 Acetaminophen (Tylenol Supp) 650 mg Q4H PRN [place] PAIN LEVEL 1-3 OR FEVER; Start 07/10/16 at 11:30 Docusate Sodium (Colace) 100 mg Q12H PRN PO CONSTIPATION; Start 07/10/16 at 11: 30 Magnesium Hydroxide (Milk Of Mag) 30 ml DAILY PRN PO CONSTIPATION; Start at 11:30 Bisacodyl (Dulcolax Supp) 10 mg DAILY PRN [place] CONSTIPATION; Start 07/10/16 at 11: 30 Pantoprazole 40 mg 40 mg DAILY@06 IV Last administered on 07/17/16 05:29; Admin Dose 40 MG; Start 07/11/16 at 06:00 Cefepime HCl 50 ml @ 100 mls/hr Q24H IVPB Last administered on 07/16/16 08:35 ; Admin Dose 100 MLS/HR; Start 07/11/16 at 09:00 Norepinephrine/ Dextrose (Levophed/D5W) 500 ml @ 1.875 mls/ hr TITRATE IV ; Start 07/10/16 at 13:30 Aspirin (Aspirin) 81 mg DAILY PO Last administered on 07/16/16 12:01; Admin Dose 81 MG; Start 07/11/16 at 09:00 Atorvastatin Calcium (Lipitor) 10 mg QHS PO Last administered on 07/16/16 20:24 ; Admin Dose 10 MG; Start 07/10/16 at 21:00 Clopidogrel Bisulfate (plaVIX) 75 mg DAILY PO Last administered on 07/16/16 12: 01; Admin Dose 75 MG; Start 07/11/16 at 09:00 Ferrous Sulfate (Ferrous Sulfate (Ec)) 325 mg BID PO Last administered on 20:24; Admin Dose 325 MG; Start 07/10/16 at 21:00 Multivit/Ca Carb/ B Cmplx/FA/Prenat (Lindsay-Armando) 1 tab DAILY PO Last administered on 07/16/16 12:02; Admin Dose 1 TAB; Start 07/11/16 at 09:00 Metoprolol Tartrate (Lopressor) 25 mg BID PO Last administered on 07/16/16 12: 01; Admin Dose 25 MG; Start 07/11/16 at 11:00 Morphine Sulfate (morphine) 2 mg Q1H PRN IV PAIN; Start 07/11/16 at 22:00 Enoxaparin Sodium (Lovenox) 65 mg Q24H SC Last administered on 07/16/16 12:04; Admin Dose 65 MG; Start 07/14/16 at 09:00 Albuterol/ Ipratropium 3 ml 3 ml PRN HHN Last administered on 07/13/16 15:11; Admin Dose 3 ML; Start 07/13/16 at 15:00 Fentanyl 100 ml @ 2.5 mls/hr TITRATE IV Last administered on 07/16/16 19:47; Admin Dose 5 MLS/HR; Start 07/13/16 at 20:30 Midazolam HCl (Versed) 50 ml @ 1 mls/hr TITRATE IV Last administered on 05:29; Admin Dose 5 MLS/HR; Start 07/14/16 at 12:00 Methylprednisolone Sodium Succinate 60 mg 60 mg DAILY IV Last administered on t 08:35; Admin Dose 60 MG; Start 07/15/16 at 09:00 Vancomycin HCl (Vancocin) 250 ml @ 125 mls/hr Q48H IVPB ; Start 07/17/16 at 10: 00 MANDO AMARO Jul 17, 2016 08:15
[2016-07-17] MEDS: ASPIRIN 81 MG TAB PO SCH (08:27)
[2016-07-17] MEDS: METHYLPREDNISOLONE 125 MG INJ IV SCH (08:27)
[2016-07-17] MEDS: CLOPIDOGREL 75 MG TAB PO SCH (08:28)
[2016-07-17] MEDS: METOPROLOL 25 MG TAB PO SCH ×2 (08:28→13:59)
[2016-07-17] MEDS: FERROUS SULFATE (EC) 325 MG TAB PO SCH ×2 (08:28→20:27)
[2016-07-17] MEDS: MULTIVIT/CA CARB/B CMPLX/FA TAB PO SCH (08:29)
[2016-07-17] MEDS: CEFEPIME 2GM/50 ML (PMX) 50 ML IVPB SCH (08:29)
[2016-07-17] MEDS: ENOXAPARIN 80 MG/0.8 ML SYG SC SCH (08:30)
--- NOTE | 2016-07-17 09:51 | PN ---
Date/Time of Note Date/Time of Note DATE: 07/17/16 TIME: 09:33 Assessment/Plan VTE Prophylaxis VTE Prophylaxis Intervention: LMWH Lines/Catheters IV Catheter Type (from Nrs): Central Line Central line still needed: Yes (for IV access ) Urinary Cath still in place: Yes Reason Cath still needed: other (indicate) (TATY, monitor renal function ) Assessment/Plan Assessment/Plan 81-year-old female with: 1. Acute respiratory failure with known interstitial lung disease and previous episodes of bronchitis, admitted with RML and RLL pneumonia which probably precipitated her respiratory failure. Unfortunately had to be reintubated because of laryngeal edema and stridor, visualization of vocal cords today by Dr Armstrong to decide re extubation, on steroids. Per family now DNR Continue IV Abx and followed by Dr Armstrong from pulmonary. 2. Coronary artery disease. S/p NSTEMI, CE back to normal and Lovenox changed back to ppx dose today Appreciate recommendations from Dr Grimes 2D echo with new apical wall motion abnormality, may need angio later on if renal function permits otherwise continue medical management. 3. Hypertension, back on meds 4. Hyperlipidemia. Continue statin therapy. 5. Chronic kidney disease stage III, renal function OK post Bumex gtt this weekend, now off diuretics, on Free H20 to Hypernatremia. Continue to monitor daily. 6. Interstitial lung disease. Continue MDI and bronchodilators while being intubated. On steroids too for laryngeal edema 7. Gastroesophageal reflux disease. Continue proton pump inhibitors. 8. Chronic Anemia likely 2ry to CKD and chronic disease, Hb stable do far, no acute bleeding. PROPHYLAXIS: Patient already on proton pump inhibitors for GI prophylaxis and back on prophylactic dose of Lovenox. DISPOSITION: ICU care until extubated, now per family DNR. Off diuretics, on free H2O and monitoring renal function Subjective 24 Hr Interval Summary Free Text/Dictation Patient stable on Vent Dr Armstrong to check her vocal cords today and re eval edema DNR per family Exam/Review of Systems Vital Signs Vitals Vital Signs Date Time Temp Pulse Resp B/P Pulse Ox O2 Delivery O2 Flow Rate FiO2 07/17/16 08:00 53 07/17/16 08:00 40 07/17/16 08:00 12 143/53 99 Mechanical Ventilator 07/17/16 04:00 98.3 Intake and Output 07/16/16 07/16/16 07/17/16 15:00 23:00 07:00 Intake Total 472.0 ml 495 ml 375.0 ml Output Total 230 ml 225 ml 165 ml Balance 242.0 ml 270 ml 210.0 ml Exam Constitutional: other (intubated and sedated ) Respiratory: clear to auscultation, diminished breath sounds (bases bilaterally ), normal air movement Cardiovascular: nl pulses, regular rate and rhythm Gastrointestinal: non-tender, soft Musculoskeletal: nl extremities to inspection Extremities: normal pulses, other (no edema, clubbing or cyanosis ) Neurological: AIR EXPORT AGENT II-XII intact, nl mental status, other (sedated and intubated ) Results Result Diagram: 07/17/16 0400 07/17/16 0400 Results 24 hrs Laboratory Tests Test 07/17/16 04:00 Anion Gap 15 Basophils # 0.0 Basophils % 0.1 Blood Urea Nitrogen 61 H Calcium Level 7.9 L Carbon Dioxide Level 30 Chloride Level 107 Creatinine 1.72 H Eosinophils # 0.0 Eosinophils % 0.1 Glucose Level 128 Hematocrit 25.4 L Hemoglobin 8.6 L Lymphocytes # 1.7 Lymphocytes % 15.8 Mean Corpuscular Hemoglobin 33.7 H Mean Corpuscular Hemoglobin Concent 33.6 Mean Corpuscular Volume 100.3 Mean Platelet Volume 8.4 Monocytes # 0.8 Monocytes % 7.5 Neutrophils # 8.3 H Neutrophils % 76.5 Nucleated Red Blood Cells # 0.0 Nucleated Red Blood Cells % 0.0 Platelet Count 198 Potassium Level 4.0 Red Blood Count 2.54 L Red Cell Distribution Width 13.4 Sodium Level 148 H White Blood Count 10.9 H Medications Medications Current Medications Ondansetron HCl (Zofran Inj) 4 mg Q6H PRN IV NAUSEA AND/OR VOMITING; Start 07/10 at 11:30 Acetaminophen (Tylenol Liquid) 650 mg Q6H PRN PO PAIN LEVEL 1-3 OR FEVER; Start 07/10/16 at 11:30 Acetaminophen (Tylenol Supp) 650 mg Q4H PRN [place] PAIN LEVEL 1-3 OR FEVER; Start 07/10/16 at 11:30 Docusate Sodium (Colace) 100 mg Q12H PRN PO CONSTIPATION; Start 07/10/16 at 11: 30 Magnesium Hydroxide (Milk Of Mag) 30 ml DAILY PRN PO CONSTIPATION; Start at 11:30 Bisacodyl (Dulcolax Supp) 10 mg DAILY PRN [place] CONSTIPATION; Start 07/10/16 at 11: 30 Pantoprazole 40 mg 40 mg DAILY@06 IV Last administered on 07/17/16 05:29; Admin Dose 40 MG; Start 07/11/16 at 06:00 Cefepime HCl 50 ml @ 100 mls/hr Q24H IVPB Last administered on 07/17/16 08:29 ; Admin Dose 100 MLS/HR; Start 07/11/16 at 09:00 Norepinephrine/ Dextrose (Levophed/D5W) 500 ml @ 1.875 mls/ hr TITRATE IV ; Start 07/10/16 at 13:30 Aspirin (Aspirin) 81 mg DAILY PO Last administered on 07/17/16 08:27; Admin Dose 81 MG; Start 07/11/16 at 09:00 Atorvastatin Calcium (Lipitor) 10 mg QHS PO Last administered on 07/16/16 20:24 ; Admin Dose 10 MG; Start 07/10/16 at 21:00 Clopidogrel Bisulfate (plaVIX) 75 mg DAILY PO Last administered on 07/17/16 08: 28; Admin Dose 75 MG; Start 07/11/16 at 09:00 Ferrous Sulfate (Ferrous Sulfate (Ec)) 325 mg BID PO Last administered on 08:28; Admin Dose 325 MG; Start 07/10/16 at 21:00 Multivit/Ca Carb/ B Cmplx/FA/Prenat (Lindsay-Armando) 1 tab DAILY PO Last administered on 07/17/16 08:29; Admin Dose 1 TAB; Start 07/11/16 at 09:00 Metoprolol Tartrate (Lopressor) 25 mg BID PO Last administered on 07/16/16 12: 01; Admin Dose 25 MG; Start 07/11/16 at 11:00 Morphine Sulfate (morphine) 2 mg Q1H PRN IV PAIN; Start 07/11/16 at 22:00 Enoxaparin Sodium (Lovenox) 65 mg Q24H SC Last administered on 07/17/16 08:30; Admin Dose 65 MG; Start 07/14/16 at 09:00 Albuterol/ Ipratropium 3 ml 3 ml PRN HHN Last administered on 07/13/16 15:11; Admin Dose 3 ML; Start 07/13/16 at 15:00 Fentanyl 100 ml @ 2.5 mls/hr TITRATE IV Last administered on 07/16/16 19:47; Admin Dose 5 MLS/HR; Start 07/13/16 at 20:30 Midazolam HCl (Versed) 50 ml @ 1 mls/hr TITRATE IV Last administered on 05:29; Admin Dose 5 MLS/HR; Start 07/14/16 at 12:00 Methylprednisolone Sodium Succinate 60 mg 60 mg DAILY IV Last administered on 08:27; Admin Dose 60 MG; Start 07/15/16 at 09:00 Vancomycin HCl (Vancocin) 250 ml @ 125 mls/hr Q48H IVPB ; Start 07/17/16 at 10: 00 JOB GARCÍA Jul 17, 2016 09:43
--- NOTE | 2016-07-17 09:56 | CONS ---
Date/Time of Note Date/Time of Note DATE: 07/17/16 TIME: 09:54 Consultation Date/Type/Reason Admit Date/Time Jul 10, 2016 at 11:30 Type of Consultation: Pulmonary/critical care Referring Provider: JOB GARCÍA 24 HR Interval Summary Free Text/Dictation This is a procedure note. Patient required a direct laryngoscopy for evaluation of vocal cord edema. Patient already was on mechanical ventilation sedated with fentanyl and Versed drips. Attempt was made to open the patient's mouth but was difficult therefore she was given 40 mg of succinylcholine this was followed by direct laryngoscopy which revealed significant continued glottic edema , vocal cords could not be visualized. At this time the options are either to perform tracheostomy, or to wait a couple of more days and to terminally extubate the patient as is this is what the family's wishes are. I did have a detailed discussion about the findings with the patient's granddaughter. She is going to think about it and let us know. Exam/Review of Systems Vital Signs Vitals Vital Signs Date Time Temp Pulse Resp B/P Pulse Ox O2 Delivery O2 Flow Rate FiO2 07/17/16 08:00 53 07/17/16 08:00 40 07/17/16 08:00 12 143/53 99 Mechanical Ventilator 07/17/16 04:00 98.3 Intake and Output 07/16/16 07/16/16 07/17/16 15:00 23:00 07:00 Intake Total 472.0 ml 495 ml 375.0 ml Output Total 230 ml 225 ml 165 ml Balance 242.0 ml 270 ml 210.0 ml Results Result Diagram: 07/17/16 0400 07/17/16 0400 Results 24 hrs Laboratory Tests Test 07/17/16 04:00 Anion Gap 15 Basophils # 0.0 Basophils % 0.1 Blood Urea Nitrogen 61 H Calcium Level 7.9 L Carbon Dioxide Level 30 Chloride Level 107 Creatinine 1.72 H Eosinophils # 0.0 Eosinophils % 0.1 Glucose Level 128 Hematocrit 25.4 L Hemoglobin 8.6 L Lymphocytes # 1.7 Lymphocytes % 15.8 Mean Corpuscular Hemoglobin 33.7 H Mean Corpuscular Hemoglobin Concent 33.6 Mean Corpuscular Volume 100.3 Mean Platelet Volume 8.4 Monocytes # 0.8 Monocytes % 7.5 Neutrophils # 8.3 H Neutrophils % 76.5 Nucleated Red Blood Cells # 0.0 Nucleated Red Blood Cells % 0.0 Platelet Count 198 Potassium Level 4.0 Red Blood Count 2.54 L Red Cell Distribution Width 13.4 Sodium Level 148 H White Blood Count 10.9 H Medications Medications Current Medications Ondansetron HCl (Zofran Inj) 4 mg Q6H PRN IV NAUSEA AND/OR VOMITING; Start 07/10 at 11:30 Acetaminophen (Tylenol Liquid) 650 mg Q6H PRN PO PAIN LEVEL 1-3 OR FEVER; Start 07/10/16 at 11:30 Acetaminophen (Tylenol Supp) 650 mg Q4H PRN [place] PAIN LEVEL 1-3 OR FEVER; Start 07/10/16 at 11:30 Docusate Sodium (Colace) 100 mg Q12H PRN PO CONSTIPATION; Start 07/10/16 at 11: 30 Magnesium Hydroxide (Milk Of Mag) 30 ml DAILY PRN PO CONSTIPATION; Start at 11:30 Bisacodyl (Dulcolax Supp) 10 mg DAILY PRN [place] CONSTIPATION; Start 07/10/16 at 11: 30 Pantoprazole 40 mg 40 mg DAILY@06 IV Last administered on 07/17/16 05:29; Admin Dose 40 MG; Start 07/11/16 at 06:00 Cefepime HCl 50 ml @ 100 mls/hr Q24H IVPB Last administered on 07/17/16 08:29 ; Admin Dose 100 MLS/HR; Start 07/11/16 at 09:00 Norepinephrine/ Dextrose (Levophed/D5W) 500 ml @ 1.875 mls/ hr TITRATE IV ; Start 07/10/16 at 13:30 Aspirin (Aspirin) 81 mg DAILY PO Last administered on 07/17/16 08:27; Admin Dose 81 MG; Start 07/11/16 at 09:00 Atorvastatin Calcium (Lipitor) 10 mg QHS PO Last administered on 07/16/16 20:24 ; Admin Dose 10 MG; Start 07/10/16 at 21:00 Clopidogrel Bisulfate (plaVIX) 75 mg DAILY PO Last administered on 07/17/16 08: 28; Admin Dose 75 MG; Start 07/11/16 at 09:00 Ferrous Sulfate (Ferrous Sulfate (Ec)) 325 mg BID PO Last administered on 08:28; Admin Dose 325 MG; Start 07/10/16 at 21:00 Multivit/Ca Carb/ B Cmplx/FA/Prenat (Lindsay-Armando) 1 tab DAILY PO Last administered on 07/17/16 08:29; Admin Dose 1 TAB; Start 07/11/16 at 09:00 Metoprolol Tartrate (Lopressor) 25 mg BID PO Last administered on 07/16/16 12: 01; Admin Dose 25 MG; Start 07/11/16 at 11:00 Morphine Sulfate (morphine) 2 mg Q1H PRN IV PAIN; Start 07/11/16 at 22:00 Albuterol/ Ipratropium 3 ml 3 ml PRN HHN Last administered on 07/13/16 15:11; Admin Dose 3 ML; Start 07/13/16 at 15:00 Fentanyl 100 ml @ 2.5 mls/hr TITRATE IV Last administered on 07/16/16 19:47; Admin Dose 5 MLS/HR; Start 07/13/16 at 20:30 Midazolam HCl (Versed) 50 ml @ 1 mls/hr TITRATE IV Last administered on 05:29; Admin Dose 5 MLS/HR; Start 07/14/16 at 12:00 Methylprednisolone Sodium Succinate 60 mg 60 mg DAILY IV Last administered on 08:27; Admin Dose 60 MG; Start 07/15/16 at 09:00 Vancomycin HCl (Vancocin) 250 ml @ 125 mls/hr Q48H IVPB ; Start 07/17/16 at 10: 00 Enoxaparin Sodium (Lovenox) 30 mg DAILY SC ; Start 07/18/16 at 09:00; Status MANDO MARQUEZ Jul 17, 2016 09:56
[2016-07-17] MEDS: VANCOMYCIN 1 GM in NS 250 ML IVPB SCH (11:00)
--- NOTE | 2016-07-17 11:49 | CONS ---
Date/Time of Note Date/Time of Note DATE: 07/17/16 TIME: 11:46 Assessment/Plan Assessment/Plan Chief Complaint/Hosp Course IMPRESSION: 1. Non-ST elevation myocardial infarction.-now troponin trended negative/ decrasewd EF and apical HK on echo c/w probable event 2. Abnormal electrocardiogram with anteroseptal Q's. 3. Hypotension, currently improving. 4. History of dyslipidemia. 5. Respiratory failure, status post re-intubation secondary to laryngeal edema 6. Renal failure-acute on chronic renal failure 7. Pneumonia. 8. Anemia. 9. Leukocytosis. 10.Cardiomyopathy-LVEF 35-40 by echo this admit Recc: -Tele -serial ecg';s -Continue BB as tolerated and will write for hydralazine afterload reduction in lieu of ACEI secondary to renal failure -Continue ASA/plavix -Continue prophylactic lovenox dose -Continue statin -Continue abx's and f/u cx data -Follow volume status and renal function closely -trend cardiac enzymes -Wean vent as tolerated Problems: Consultation Date/Type/Reason Admit Date/Time Jul 10, 2016 at 11:30 Initial Consult Date 07/12/16 Type of Consultation: Cardiology Reason for Consultation nstemi Referring Provider: JOB GARCÍA Exam/Review of Systems Vital Signs Vitals Vital Signs Date Time Temp Pulse Resp B/P Pulse Ox O2 Delivery O2 Flow Rate FiO2 07/17/16 10:30 67 13 157/62 97 Mechanical Ventilator 07/17/16 08:30 96.6 07/17/16 08:00 40 Intake and Output 07/16/16 07/16/16 07/17/16 15:00 23:00 07:00 Intake Total 472.0 ml 495 ml 375.0 ml Output Total 230 ml 225 ml 165 ml Balance 242.0 ml 270 ml 210.0 ml Exam Review of Systems: CONSTITUTIONAL: No fevers, chills. PULMONARY: intubated CARDIOVASCULAR: No obvious chest pain/palpitations GASTROINTESTINAL: No nausea/vomiting. GENITOURINARY: No hematuria/dysuria. MUSCULOSKELETAL: No obvious myagias/arthalgias. PSYCHIATRIC: The patient denies depression. NEUROLOGIC: sedated Constitutional: other (sedated) ENMT: intubated Neck: jvd (9-10 cm water), supple Respiratory: diminished breath sounds (at bases/B) Cardiovascular: regular rate and rhythm Gastrointestinal: non-tender, soft Musculoskeletal: muscle tone (normal) Extremities: edema (trace/B) Neurological: other (sedated) Results Result Diagram: 07/17/16 0400 07/17/16 0400 Results 24 hrs Laboratory Tests Test 07/17/16 04:00 Anion Gap 15 Basophils # 0.0 Basophils % 0.1 Blood Urea Nitrogen 61 H Calcium Level 7.9 L Carbon Dioxide Level 30 Chloride Level 107 Creatinine 1.72 H Eosinophils # 0.0 Eosinophils % 0.1 Glucose Level 128 Hematocrit 25.4 L Hemoglobin 8.6 L Lymphocytes # 1.7 Lymphocytes % 15.8 Mean Corpuscular Hemoglobin 33.7 H Mean Corpuscular Hemoglobin Concent 33.6 Mean Corpuscular Volume 100.3 Mean Platelet Volume 8.4 Monocytes # 0.8 Monocytes % 7.5 Neutrophils # 8.3 H Neutrophils % 76.5 Nucleated Red Blood Cells # 0.0 Nucleated Red Blood Cells % 0.0 Platelet Count 198 Potassium Level 4.0 Red Blood Count 2.54 L Red Cell Distribution Width 13.4 Sodium Level 148 H White Blood Count 10.9 H Medications Medications Current Medications Ondansetron HCl (Zofran Inj) 4 mg Q6H PRN IV NAUSEA AND/OR VOMITING; Start 07/10 at 11:30 Acetaminophen (Tylenol Liquid) 650 mg Q6H PRN PO PAIN LEVEL 1-3 OR FEVER; Start 07/10/16 at 11:30 Acetaminophen (Tylenol Supp) 650 mg Q4H PRN [place] PAIN LEVEL 1-3 OR FEVER; Start 07/10/16 at 11:30 Docusate Sodium (Colace) 100 mg Q12H PRN PO CONSTIPATION; Start 07/10/16 at 11: 30 Magnesium Hydroxide (Milk Of Mag) 30 ml DAILY PRN PO CONSTIPATION; Start at 11:30 Bisacodyl (Dulcolax Supp) 10 mg DAILY PRN [place] CONSTIPATION; Start 07/10/16 at 11: 30 Pantoprazole 40 mg 40 mg DAILY@06 IV Last administered on 07/17/16 05:29; Admin Dose 40 MG; Start 07/11/16 at 06:00 Cefepime HCl 50 ml @ 100 mls/hr Q24H IVPB Last administered on 07/17/16 08:29 ; Admin Dose 100 MLS/HR; Start 07/11/16 at 09:00 Norepinephrine/ Dextrose (Levophed/D5W) 500 ml @ 1.875 mls/ hr TITRATE IV ; Start 07/10/16 at 13:30 Aspirin (Aspirin) 81 mg DAILY PO Last administered on 07/17/16 08:27; Admin Dose 81 MG; Start 07/11/16 at 09:00 Atorvastatin Calcium (Lipitor) 10 mg QHS PO Last administered on 07/16/16 20:24 ; Admin Dose 10 MG; Start 07/10/16 at 21:00 Clopidogrel Bisulfate (plaVIX) 75 mg DAILY PO Last administered on 07/17/16 08: 28; Admin Dose 75 MG; Start 07/11/16 at 09:00 Ferrous Sulfate (Ferrous Sulfate (Ec)) 325 mg BID PO Last administered on 08:28; Admin Dose 325 MG; Start 07/10/16 at 21:00 Multivit/Ca Carb/ B Cmplx/FA/Prenat (Lindsay-Armando) 1 tab DAILY PO Last administered on 07/17/16 08:29; Admin Dose 1 TAB; Start 07/11/16 at 09:00 Metoprolol Tartrate (Lopressor) 25 mg BID PO Last administered on 07/16/16 12: 01; Admin Dose 25 MG; Start 07/11/16 at 11:00 Morphine Sulfate (morphine) 2 mg Q1H PRN IV PAIN; Start 07/11/16 at 22:00 Albuterol/ Ipratropium 3 ml 3 ml PRN HHN Last administered on 07/13/16 15:11; Admin Dose 3 ML; Start 07/13/16 at 15:00 Fentanyl 100 ml @ 2.5 mls/hr TITRATE IV Last administered on 07/16/16 19:47; Admin Dose 5 MLS/HR; Start 07/13/16 at 20:30 Midazolam HCl (Versed) 50 ml @ 1 mls/hr TITRATE IV Last administered on 05:29; Admin Dose 5 MLS/HR; Start 07/14/16 at 12:00 Methylprednisolone Sodium Succinate 60 mg 60 mg DAILY IV Last administered on 08:27; Admin Dose 60 MG; Start 07/15/16 at 09:00 Vancomycin HCl (Vancocin) 250 ml @ 125 mls/hr Q48H IVPB ; Start 07/17/16 at 10: 00 Enoxaparin Sodium (Lovenox) 30 mg DAILY SC ; Start 07/18/16 at 09:00 NATHALIE PENA Jul 17, 2016 11:49
[2016-07-17] MEDS: FENTAnyl (DRIP) 1000 mcg/100mL 100 ML IV SCH (17:42)
[2016-07-17] MEDS: ATORVASTATIN 10 MG TAB PO SCH (20:28)
[2016-07-17 21:22] LABS: AADO2 Arterial 12.4 mmHg (7.0-24.0); Allen Test ACCEPTAB; Arterial Base Excess 3.7 mmol/L (-3.0-3); Arterial COHb 0.3 % (0.0-3.0); Arterial Fraction of Oxyhgb 98.4 % (93.0-99.0); Arterial HCO3 26.6 mmol/L (22.0-26.0); Arterial MetHb 0.2 % (0.0-1.5); Arterial Total Hemglobin 11.7 g/dl (12.0-18.0); MODE VENT - AC
[2016-07-18] VITALS (57 sets, daily range): BP systolic 96–158; BP diastolic 43–91; PULSE 40–82; RESP 7–16
[2016-07-18] MEDS: IPRATROPIUM (HFA) 12.9 GM INHALER INH SCH ×6 (02:54→20:30)
[2016-07-18] MEDS: ALBUTEROL HFA 8 GM INHALER INH SCH ×6 (02:54→20:31)
[2016-07-18] MEDS: FENTAnyl (DRIP) 1000 mcg/100mL 100 ML IV SCH ×2 (03:41→15:51)
[2016-07-18] MEDS: MIDAZOLAM (DRIP) 50 mg/50 mL 50 ML IV SCH ×2 (03:42→15:51)
[2016-07-18 05:08] LABS: CREATININE 1.74 mg/dl (0.44-1.00)
[2016-07-18 05:10] LABS: BASOPHILS % 0.1 % (0.0-2.0); EOSINOPHILS % 0.3 % (0.0-7.0); HEMATOCRIT 25.4 % (37.0-47.0); HEMOGLOBIN 8.5 g/dl (12.0-16.0); LYMPHOCYTES # 1.5 10^3/ul (0.8-2.9); LYMPHOCYTES % 12.8 % (15.0-51.0); MAGNESIUM 2.2 mg/dl (1.7-2.5); MEAN CORPUSCULAR HEMOGLOBIN 33.7 pg (29.0-33.0); MEAN CORPUSCULAR HGB CONC 33.6 g/dl (32.0-37.0); MEAN CORPUSCULAR VOLUME 100.4 fl (82.0-101.0); MEAN PLATELET VOLUME 8.5 fl (7.4-10.4); MONOCYTE # 0.9 10^3/ul (0.3-0.9); MONOCYTES % 7.4 % (0.0-11.0); NEUTROPHIL # 9.5 10^3/ul (1.6-7.5); NEUTROPHILS % 79.4 % (39.0-77.0); PHOSPHORUS 4.1 mg/dl (2.5-4.9); PLATELET COUNT 216 10^3/UL (140-440); RED BLOOD COUNT 2.53 10^6/ul (4.20-5.40); RED CELL DISTRIBUTION WIDTH 13.1 % (11.5-14.5)
[2016-07-18 05:22] LABS: CONDITION 1
[2016-07-18] MEDS: PANTOPRAZOLE 40 MG INJ IV SCH (05:33)
[2016-07-18] MEDS: METHYLPREDNISOLONE 125 MG INJ IV SCH (08:20)
[2016-07-18] MEDS: ASPIRIN 81 MG TAB PO SCH (08:20)
[2016-07-18] MEDS: CLOPIDOGREL 75 MG TAB PO SCH (08:20)
[2016-07-18] MEDS: CEFEPIME 2GM/50 ML (PMX) 50 ML IVPB SCH (08:20)
[2016-07-18] MEDS: MULTIVIT/CA CARB/B CMPLX/FA TAB PO SCH (08:20)
[2016-07-18] MEDS: FERROUS SULFATE (EC) 325 MG TAB PO SCH ×2 (08:20→20:26)
[2016-07-18] MEDS: METOPROLOL 25 MG TAB PO SCH ×2 (08:21→20:26)
[2016-07-18] MEDS: ENOXAPARIN 30 MG/0.3 ML SYG SC SCH (08:24)
--- NOTE | 2016-07-18 09:07 | CONS ---
Date/Time of Note Date/Time of Note DATE: 07/18/16 TIME: 09:03 Assessment/Plan Assessment/Plan Additional Assessment/Plan Current ventilator settings; assist control of 12, tidal volume 400, PEEP of 5, 40% FiO2. Assessment recommendations; 1. Patient admitted with bilateral pneumonia with significant radiological improvement, however the patient failed an extubation trial due to severe vocal cord edema requiring a difficult reintubation with a 5.5 endotracheal tube. 2. Direct laryngoscopy performed yesterday by myself history is showing persistent glottic edema. 3. Patient's family reluctant for tracheostomy at this point and they want to have a possible terminal extubation in a day or 2. Patient may or may not do well after extubation depending on residual glottic edema. Meanwhile continue current treatment. Chest x-ray from today is pending. Consultation Date/Type/Reason Admit Date/Time Jul 10, 2016 at 11:30 Type of Consultation: Pulmonary/critical care Referring Provider: JOB GARCÍA 24 HR Interval Summary Free Text/Dictation Patient condition remains critical. Still requiring full ventilator support. Patient on a low-dose sedation, she is readily arousable. Has remained hemodynamically stable. General examination; elderly lady, or intubated. Currently in no distress. Exam/Review of Systems Vital Signs Vitals Vital Signs Date Time Temp Pulse Resp B/P Pulse Ox O2 Delivery O2 Flow Rate FiO2 07/18/16 07:40 44 12 97 25 07/18/16 06:00 110/48 Mechanical Ventilator 07/18/16 04:00 98.2 Intake and Output 07/17/16 07/17/16 07/18/16 15:00 23:00 07:00 Intake Total 802.5 ml 491.05 ml 477.5 ml Output Total 145 ml 310 ml 225 ml Balance 657.5 ml 181.05 ml 252.5 ml Exam H EENT examination; supple neck, no JVD. No stridor. Patient is intubated with 5.5 sized endotracheal tube. Fair dentition. Next Chest examination; diminished but clear breath sounds bilaterally. S1-S2 audible, no murmurs. Regular rate and rhythm. Abdomen examination; soft, no organomegaly. Bowel sounds audible. Extremity examination; no peripheral edema. ASSOCIATE PRINCIPAL examination; patient is arousable moves all 4 extremities. Results Result Diagram: 07/18/16 0345 07/18/16 0345 Results 24 hrs Laboratory Tests Test 07/17/16 21:00 07/18/16 03:45 Arterial Blood HCO3 26.6 H Arterial Blood Base Excess 3.7 H Arterial Blood Oxygen Saturation 98.9 Harish Test ACCEPTAB Arterial Blood Gas Puncture Site Right Radial Arterial Blood Carboxyhemoglobin 0.3 Arterial Blood Date Drawn 07/17/2016 9:00:18 PM Arterial Blood Methemoglobin 0.2 Arterial Blood pCO2 (Temp correct) 34.4 L Arterial Blood pH (Temp corrected) 7.506 H Arterial Blood pO2 (Temp corrected) 161.1 H Blood Gas A-a O2 Differential 12.4 Blood Gas Actual Respiration Rate 12 Blood Gas Low PEEP Setting 5.0 Blood Gas Modality VENT - AC Blood Gas Notified Time 07/17/2016 9:21:59 PM Blood Gas Notified Whom MA Blood Gas Respiration Rate 12.0 Blood Gas Specimen Source Blood arterial Blood Gas Temperature 37.0 Blood Gas Tidal Volume 400.0 FiO2 30.0 Oxyhemoglobin Percent 98.4 Total Hemoglobin 11.7 L Anion Gap 14 Basophils # 0.0 Basophils % 0.1 Blood Urea Nitrogen 67 H Calcium Level 8.0 L Carbon Dioxide Level 29 Chloride Level 107 Creatinine 1.74 H Eosinophils # 0.0 Eosinophils % 0.3 Glucose Level 128 Hematocrit 25.4 L Hemoglobin 8.5 L Lymphocytes # 1.5 Lymphocytes % 12.8 L Magnesium Level 2.2 Mean Corpuscular Hemoglobin 33.7 H Mean Corpuscular Hemoglobin Concent 33.6 Mean Corpuscular Volume 100.4 Mean Platelet Volume 8.5 Monocytes # 0.9 Monocytes % 7.4 Neutrophils # 9.5 H Neutrophils % 79.4 H Nucleated Red Blood Cells # 0.0 Nucleated Red Blood Cells % 0.0 Phosphorus Level 4.1 Platelet Count 216 Potassium Level 4.0 Red Blood Count 2.53 L Red Cell Distribution Width 13.1 Sodium Level 146 H White Blood Count 12.0 H Medications Medications Current Medications Ondansetron HCl (Zofran Inj) 4 mg Q6H PRN IV NAUSEA AND/OR VOMITING; Start 07/10 at 11:30 Acetaminophen (Tylenol Liquid) 650 mg Q6H PRN PO PAIN LEVEL 1-3 OR FEVER; Start 07/10/16 at 11:30 Acetaminophen (Tylenol Supp) 650 mg Q4H PRN CO PAIN LEVEL 1-3 OR FEVER; Start 07/10/16 at 11:30 Docusate Sodium (Colace) 100 mg Q12H PRN PO CONSTIPATION; Start 07/10/16 at 11: 30 Magnesium Hydroxide (Milk Of Mag) 30 ml DAILY PRN PO CONSTIPATION; Start at 11:30 Bisacodyl (Dulcolax Supp) 10 mg DAILY PRN CO CONSTIPATION; Start 07/10/16 at 11: 30 Pantoprazole 40 mg 40 mg DAILY@06 IV Last administered on 07/18/16 05:33; Admin Dose 40 MG; Start 07/11/16 at 06:00 Cefepime HCl 50 ml @ 100 mls/hr Q24H IVPB Last administered on 07/18/16 08:20 ; Admin Dose 100 MLS/HR; Start 07/11/16 at 09:00 Norepinephrine/ Dextrose (Levophed/D5W) 500 ml @ 1.875 mls/ hr TITRATE IV ; Start 07/10/16 at 13:30 Aspirin (Aspirin) 81 mg DAILY PO Last administered on 07/18/16 08:20; Admin Dose 81 MG; Start 07/11/16 at 09:00 Atorvastatin Calcium (Lipitor) 10 mg QHS PO Last administered on 07/17/16 20:28 ; Admin Dose 10 MG; Start 07/10/16 at 21:00 Clopidogrel Bisulfate (plaVIX) 75 mg DAILY PO Last administered on 07/18/16 08: 20; Admin Dose 75 MG; Start 07/11/16 at 09:00 Ferrous Sulfate (Ferrous Sulfate (Ec)) 325 mg BID PO Last administered on 08:20; Admin Dose 325 MG; Start 07/10/16 at 21:00 Multivit/Ca Carb/ B Cmplx/FA/Prenat (Lindsay-Armando) 1 tab DAILY PO Last administered on 07/18/16 08:20; Admin Dose 1 TAB; Start 07/11/16 at 09:00 Metoprolol Tartrate (Lopressor) 25 mg BID PO Last administered on 07/17/16 13: 59; Admin Dose 25 MG; Start 07/11/16 at 11:00 Morphine Sulfate (morphine) 2 mg Q1H PRN IV PAIN; Start 07/11/16 at 22:00 Albuterol/ Ipratropium 3 ml 3 ml PRN HHN Last administered on 07/13/16 15:11; Admin Dose 3 ML; Start 07/13/16 at 15:00 Fentanyl 100 ml @ 2.5 mls/hr TITRATE IV Last administered on 07/18/16 03:41; Admin Dose 7.5 MLS/HR; Start 07/13/16 at 20:30 Midazolam HCl (Versed) 50 ml @ 1 mls/hr TITRATE IV Last administered on 03:42; Admin Dose 5 MLS/HR; Start 07/14/16 at 12:00 Methylprednisolone Sodium Succinate 60 mg 60 mg DAILY IV Last administered on 08:20; Admin Dose 60 MG; Start 07/15/16 at 09:00 Vancomycin HCl (Vancocin) 250 ml @ 125 mls/hr Q48H IVPB Last administered on 11:00; Admin Dose 125 MLS/HR; Start 07/17/16 at 10:00 Enoxaparin Sodium (Lovenox) 30 mg DAILY SC Last administered on 07/18/16 08:24 ; Admin Dose 30 MG; Start 07/18/16 at 09:00 Hydralazine HCl (Apresoline) 25 mg Q8 PO Last administered on 07/17/16 22:54; Admin Dose 25 MG; Start 07/17/16 at 14:00 MANDO AMARO Jul 18, 2016 09:07
--- NOTE | 2016-07-18 09:17 | PN ---
Date/Time of Note Date/Time of Note DATE: 07/18/16 TIME: 09:06 Assessment/Plan VTE Prophylaxis VTE Prophylaxis Intervention: LMWH Lines/Catheters IV Catheter Type (from Nrs): Central Line Central line still needed: Yes (for IV access ) Urinary Cath still in place: Yes Reason Cath still needed: other (indicate) (monitor UOP ) Assessment/Plan Assessment/Plan 81-year-old female with: 1. Acute respiratory failure with known interstitial lung disease and previous episodes of bronchitis, admitted with RML and RLL pneumonia which probably precipitated her respiratory failure. Unfortunately had to be reintubated because of laryngeal edema and stridor, visualization of vocal cords with still some edema, on steroids and DNR, No trach per per family and wishing to terminally extubate within [address] Truong from palliative care consulted Continue IV Abx Continue Steroids. 2. Coronary artery disease. S/p NSTEMI, CE back to normal and Lovenox changed back to ppx dose today Appreciate recommendations from Dr Grimes 2D echo with new apical wall motion abnormality Continue medical management and palliative care 3. Hypertension, back on meds 4. Hyperlipidemia. Continue statin therapy. 5. Chronic kidney disease stage III, renal function OK post Bumex gtt this weekend, now off diuretics, on Free H20 to Hypernatremia. Moving to comfort care at this point. 6. Interstitial lung disease. Continue MDI and bronchodilators while being intubated. On steroids too for laryngeal edema 7. Gastroesophageal reflux disease. Continue proton pump inhibitors. 8. Chronic Anemia likely 2ry to CKD and chronic disease, Hb stable do far, no acute bleeding. PROPHYLAXIS: Patient already on proton pump inhibitors for GI prophylaxis and back on prophylactic dose of Lovenox. DISPOSITION: ICU care until extubated likely in the next 24 hrs, palliative care consult today and hospice consult to follow. Subjective 24 Hr Interval Summary Free Text/Dictation patient is easily arousable Had a discussion with family spokes'person and confirmed still wish to have patient extubated in the next 24 hrs, they understand that she may do well or not post extubation and agree to Palliative care involvement Dr Truong has been consulted Exam/Review of Systems Vital Signs Vitals Vital Signs Date Time Temp Pulse Resp B/P Pulse Ox O2 Delivery O2 Flow Rate FiO2 07/18/16 07:40 44 12 97 25 07/18/16 06:00 110/48 Mechanical Ventilator 07/18/16 04:00 98.2 Intake and Output 07/17/16 07/17/16 07/18/16 15:00 23:00 07:00 Intake Total 802.5 ml 491.05 ml 477.5 ml Output Total 145 ml 310 ml 225 ml Balance 657.5 ml 181.05 ml 252.5 ml Exam Constitutional: other (sedated but easily arousable ) Respiratory: diminished breath sounds (bases ), other (on Vent ) Cardiovascular: nl pulses, regular rate and rhythm Gastrointestinal: ascites, soft Musculoskeletal: nl extremities to inspection Extremities: normal pulses, other (no edema, clubbing or cyanosis ) Neurological: CELERY CUTTER II-XII intact, other (sedated but easily arousable ) Results Result Diagram: 07/18/16 0345 07/18/16 0345 Results 24 hrs Laboratory Tests Test 07/17/16 21:00 07/18/16 03:45 Arterial Blood HCO3 26.6 H Arterial Blood Base Excess 3.7 H Arterial Blood Oxygen Saturation 98.9 Harish Test ACCEPTAB Arterial Blood Gas Puncture Site Right Radial Arterial Blood Carboxyhemoglobin 0.3 Arterial Blood Date Drawn 07/17/2016 9:00:18 PM Arterial Blood Methemoglobin 0.2 Arterial Blood pCO2 (Temp correct) 34.4 L Arterial Blood pH (Temp corrected) 7.506 H Arterial Blood pO2 (Temp corrected) 161.1 H Blood Gas A-a O2 Differential 12.4 Blood Gas Actual Respiration Rate 12 Blood Gas Low PEEP Setting 5.0 Blood Gas Modality VENT - AC Blood Gas Notified Time 07/17/2016 9:21:59 PM Blood Gas Notified Whom MA Blood Gas Respiration Rate 12.0 Blood Gas Specimen Source Blood arterial Blood Gas Temperature 37.0 Blood Gas Tidal Volume 400.0 FiO2 30.0 Oxyhemoglobin Percent 98.4 Total Hemoglobin 11.7 L Anion Gap 14 Basophils # 0.0 Basophils % 0.1 Blood Urea Nitrogen 67 H Calcium Level 8.0 L Carbon Dioxide Level 29 Chloride Level 107 Creatinine 1.74 H Eosinophils # 0.0 Eosinophils % 0.3 Glucose Level 128 Hematocrit 25.4 L Hemoglobin 8.5 L Lymphocytes # 1.5 Lymphocytes % 12.8 L Magnesium Level 2.2 Mean Corpuscular Hemoglobin 33.7 H Mean Corpuscular Hemoglobin Concent 33.6 Mean Corpuscular Volume 100.4 Mean Platelet Volume 8.5 Monocytes # 0.9 Monocytes % 7.4 Neutrophils # 9.5 H Neutrophils % 79.4 H Nucleated Red Blood Cells # 0.0 Nucleated Red Blood Cells % 0.0 Phosphorus Level 4.1 Platelet Count 216 Potassium Level 4.0 Red Blood Count 2.53 L Red Cell Distribution Width 13.1 Sodium Level 146 H White Blood Count 12.0 H Medications Medications Current Medications Ondansetron HCl (Zofran Inj) 4 mg Q6H PRN IV NAUSEA AND/OR VOMITING; Start 07/10 at 11:30 Acetaminophen (Tylenol Liquid) 650 mg Q6H PRN PO PAIN LEVEL 1-3 OR FEVER; Start 07/10/16 at 11:30 Acetaminophen (Tylenol Supp) [address] PAIN LEVEL 1-3 OR FEVER; Start 07/10/16 at 11:30 Docusate Sodium (Colace) 100 mg Q12H PRN PO CONSTIPATION; Start 07/10/16 at 11: 30 Magnesium Hydroxide (Milk Of Mag) 30 ml DAILY PRN PO CONSTIPATION; Start at 11:30 Bisacodyl (Dulcolax Supp) [address] CONSTIPATION; Start 07/10/16 at 11: 30 Pantoprazole 40 mg 40 mg DAILY@06 IV Last administered on 07/18/16 05:33; Admin Dose 40 MG; Start 07/11/16 at 06:00 Cefepime HCl 50 ml @ 100 mls/hr Q24H IVPB Last administered on 07/18/16 08:20 ; Admin Dose 100 MLS/HR; Start 07/11/16 at 09:00 Norepinephrine/ Dextrose (Levophed/D5W) 500 ml @ 1.875 mls/ hr TITRATE IV ; Start 07/10/16 at 13:30 Aspirin (Aspirin) 81 mg DAILY PO Last administered on 07/18/16 08:20; Admin Dose 81 MG; Start 07/11/16 at 09:00 Atorvastatin Calcium (Lipitor) 10 mg QHS PO Last administered on 07/17/16 20:28 ; Admin Dose 10 MG; Start 07/10/16 at 21:00 Clopidogrel Bisulfate (plaVIX) 75 mg DAILY PO Last administered on 07/18/16 08: 20; Admin Dose 75 MG; Start 07/11/16 at 09:00 Ferrous Sulfate (Ferrous Sulfate (Ec)) 325 mg BID PO Last administered on 08:20; Admin Dose 325 MG; Start 07/10/16 at 21:00 Multivit/Ca Carb/ B Cmplx/FA/Prenat (Lindsay-Armando) 1 tab DAILY PO Last administered on 07/18/16 08:20; Admin Dose 1 TAB; Start 07/11/16 at 09:00 Metoprolol Tartrate (Lopressor) 25 mg BID PO Last administered on 07/17/16 13: 59; Admin Dose 25 MG; Start 07/11/16 at 11:00 Morphine Sulfate (morphine) 2 mg Q1H PRN IV PAIN; Start 07/11/16 at 22:00 Albuterol/ Ipratropium 3 ml 3 ml PRN HHN Last administered on 07/13/16 15:11; Admin Dose 3 ML; Start 07/13/16 at 15:00 Fentanyl 100 ml @ 2.5 mls/hr TITRATE IV Last administered on 07/18/16 03:41; Admin Dose 7.5 MLS/HR; Start 07/13/16 at 20:30 Midazolam HCl (Versed) 50 ml @ 1 mls/hr TITRATE IV Last administered on 03:42; Admin Dose 5 MLS/HR; Start 07/14/16 at 12:00 Methylprednisolone Sodium Succinate 60 mg 60 mg DAILY IV Last administered on 08:20; Admin Dose 60 MG; Start 07/15/16 at 09:00 Vancomycin HCl (Vancocin) 250 ml @ 125 mls/hr Q48H IVPB Last administered on 11:00; Admin Dose 125 MLS/HR; Start 07/17/16 at 10:00 Enoxaparin Sodium (Lovenox) 30 mg DAILY SC Last administered on 07/18/16 08:24 ; Admin Dose 30 MG; Start 07/18/16 at 09:00 Hydralazine HCl (Apresoline) 25 mg Q8 PO Last administered on 07/17/16 22:54; Admin Dose 25 MG; Start 07/17/16 at 14:00 JOB GARCÍA Jul 18, 2016 09:17
--- NOTE | 2016-07-18 11:01 | CONS ---
Date/Time of Note Date/Time of Note DATE: 07/18/16 TIME: 10:57 Assessment/Plan Assessment/Plan Chief Complaint/Hosp Course IMPRESSION: 1. Non-ST elevation myocardial infarction.-now troponin trended negative/ decrased EF and apical HK on echo c/w probable event 2. Abnormal electrocardiogram with anteroseptal Q's. 3. Hypotension, currently improving. 4. History of dyslipidemia. 5. Respiratory failure, status post re-intubation secondary to laryngeal edema 6. Renal failure-acute on chronic renal failure 7. Pneumonia. 8. Anemia. 9. Leukocytosis. 10.Cardiomyopathy-LVEF 35-40 by echo this admit 11.BRadycardia-S Alejandro to a low of 39 Recc: -Tele -serial ecg';s -Hold BB given bradycardia -Continue hydralazine afterload reduction as tolerated only -Continue ASA/plavix -Continue prophylactic lovenox dose -Continue statin -Continue abx's and f/u cx data -Follow volume status and renal function closely -trend cardiac enzymes -Wean vent as tolerated Problems: Consultation Date/Type/Reason Admit Date/Time Jul 10, 2016 at 11:30 Initial Consult Date 07/12/16 Type of Consultation: Cardiology Reason for Consultation Nstemi Referring Provider: JOB GARCÍA Exam/Review of Systems Vital Signs Vitals Vital Signs Date Time Temp Pulse Resp B/P Pulse Ox O2 Delivery O2 Flow Rate FiO2 07/18/16 08:00 50 07/18/16 07:40 12 97 25 07/18/16 06:00 110/48 Mechanical Ventilator 07/18/16 04:00 98.2 Intake and Output 07/17/16 07/17/16 07/18/16 15:00 23:00 07:00 Intake Total 802.5 ml 491.05 ml 477.5 ml Output Total 145 ml 310 ml 225 ml Balance 657.5 ml 181.05 ml 252.5 ml Exam Review of Systems: CONSTITUTIONAL: No fevers, chills. PULMONARY: intubated CARDIOVASCULAR: No obvious chest pain/palpitations GASTROINTESTINAL: No nausea/vomiting. GENITOURINARY: No hematuria/dysuria. MUSCULOSKELETAL: No obvious myagias/arthalgias. PSYCHIATRIC: No documented depression. NEUROLOGIC: Encephalopathic Constitutional: other Psych: no complaints Head: normocephalic ENMT: intubated, mucosa pink and moist Neck: jvd (9 cm water), supple Respiratory: other (upper airway rhoncherous sounds) Cardiovascular: regular rate and rhythm Gastrointestinal: non-tender, soft Musculoskeletal: muscle tone (normal) Extremities: edema (none) Neurological: other (encephalopathic) Results Result Diagram: 07/18/16 0345 07/18/16 0345 Results 24 hrs Laboratory Tests Test 07/17/16 21:00 07/18/16 03:45 Arterial Blood HCO3 26.6 H Arterial Blood Base Excess 3.7 H Arterial Blood Oxygen Saturation 98.9 Harish Test ACCEPTAB Arterial Blood Gas Puncture Site Right Radial Arterial Blood Carboxyhemoglobin 0.3 Arterial Blood Date Drawn 07/17/2016 9:00:18 PM Arterial Blood Methemoglobin 0.2 Arterial Blood pCO2 (Temp correct) 34.4 L Arterial Blood pH (Temp corrected) 7.506 H Arterial Blood pO2 (Temp corrected) 161.1 H Blood Gas A-a O2 Differential 12.4 Blood Gas Actual Respiration Rate 12 Blood Gas Low PEEP Setting 5.0 Blood Gas Modality VENT - AC Blood Gas Notified Time 07/17/2016 9:21:59 PM Blood Gas Notified Whom MA Blood Gas Respiration Rate 12.0 Blood Gas Specimen Source Blood arterial Blood Gas Temperature 37.0 Blood Gas Tidal Volume 400.0 FiO2 30.0 Oxyhemoglobin Percent 98.4 Total Hemoglobin 11.7 L Anion Gap 14 Basophils # 0.0 Basophils % 0.1 Blood Urea Nitrogen 67 H Calcium Level 8.0 L Carbon Dioxide Level 29 Chloride Level 107 Creatinine 1.74 H Eosinophils # 0.0 Eosinophils % 0.3 Glucose Level 128 Hematocrit 25.4 L Hemoglobin 8.5 L Lymphocytes # 1.5 Lymphocytes % 12.8 L Magnesium Level 2.2 Mean Corpuscular Hemoglobin 33.7 H Mean Corpuscular Hemoglobin Concent 33.6 Mean Corpuscular Volume 100.4 Mean Platelet Volume 8.5 Monocytes # 0.9 Monocytes % 7.4 Neutrophils # 9.5 H Neutrophils % 79.4 H Nucleated Red Blood Cells # 0.0 Nucleated Red Blood Cells % 0.0 Phosphorus Level 4.1 Platelet Count 216 Potassium Level 4.0 Red Blood Count 2.53 L Red Cell Distribution Width 13.1 Sodium Level 146 H White Blood Count 12.0 H Medications Medications Current Medications Ondansetron HCl (Zofran Inj) 4 mg Q6H PRN IV NAUSEA AND/OR VOMITING; Start 07/10 at 11:30 Acetaminophen (Tylenol Liquid) 650 mg Q6H PRN PO PAIN LEVEL 1-3 OR FEVER; Start 07/10/16 at 11:30 Acetaminophen (Tylenol Supp) 650 mg Q4H PRN ME PAIN LEVEL 1-3 OR FEVER; Start 07/10/16 at 11:30 Docusate Sodium (Colace) 100 mg Q12H PRN PO CONSTIPATION; Start 07/10/16 at 11: 30 Magnesium Hydroxide (Milk Of Mag) 30 ml DAILY PRN PO CONSTIPATION; Start at 11:30 Bisacodyl (Dulcolax Supp) 10 mg DAILY PRN ME CONSTIPATION; Start 07/10/16 at 11: 30 Pantoprazole 40 mg 40 mg DAILY@06 IV Last administered on 07/18/16 05:33; Admin Dose 40 MG; Start 07/11/16 at 06:00 Cefepime HCl 50 ml @ 100 mls/hr Q24H IVPB Last administered on 07/18/16 08:20 ; Admin Dose 100 MLS/HR; Start 07/11/16 at 09:00 Norepinephrine/ Dextrose (Levophed/D5W) 500 ml @ 1.875 mls/ hr TITRATE IV ; Start 07/10/16 at 13:30 Aspirin (Aspirin) 81 mg DAILY PO Last administered on 07/18/16 08:20; Admin Dose 81 MG; Start 07/11/16 at 09:00 Atorvastatin Calcium (Lipitor) 10 mg QHS PO Last administered on 07/17/16 20:28 ; Admin Dose 10 MG; Start 07/10/16 at 21:00 Clopidogrel Bisulfate (plaVIX) 75 mg DAILY PO Last administered on 07/18/16 08: 20; Admin Dose 75 MG; Start 07/11/16 at 09:00 Ferrous Sulfate (Ferrous Sulfate (Ec)) 325 mg BID PO Last administered on 08:20; Admin Dose 325 MG; Start 07/10/16 at 21:00 Multivit/Ca Carb/ B Cmplx/FA/Prenat (Lindsay-Armando) 1 tab DAILY PO Last administered on 07/18/16 08:20; Admin Dose 1 TAB; Start 07/11/16 at 09:00 Metoprolol Tartrate (Lopressor) 25 mg BID PO Last administered on 07/17/16 13: 59; Admin Dose 25 MG; Start 07/11/16 at 11:00 Morphine Sulfate (morphine) 2 mg Q1H PRN IV PAIN; Start 07/11/16 at 22:00 Albuterol/ Ipratropium 3 ml 3 ml PRN HHN Last administered on 07/13/16 15:11; Admin Dose 3 ML; Start 07/13/16 at 15:00 Fentanyl 100 ml @ 2.5 mls/hr TITRATE IV Last administered on 07/18/16 03:41; Admin Dose 7.5 MLS/HR; Start 07/13/16 at 20:30 Midazolam HCl (Versed) 50 ml @ 1 mls/hr TITRATE IV Last administered on 03:42; Admin Dose 5 MLS/HR; Start 07/14/16 at 12:00 Methylprednisolone Sodium Succinate 60 mg 60 mg DAILY IV Last administered on 08:20; Admin Dose 60 MG; Start 07/15/16 at 09:00 Vancomycin HCl (Vancocin) 250 ml @ 125 mls/hr Q48H IVPB Last administered on 11:00; Admin Dose 125 MLS/HR; Start 07/17/16 at 10:00 Enoxaparin Sodium (Lovenox) 30 mg DAILY SC Last administered on 07/18/16 08:24 ; Admin Dose 30 MG; Start 07/18/16 at 09:00 Hydralazine HCl (Apresoline) 25 mg Q8 PO Last administered on 07/17/16 22:54; Admin Dose 25 MG; Start 07/17/16 at 14:00 NATHALIE PENA Jul 18, 2016 11:01
--- NOTE | 2016-07-18 15:49 | CONS ---
DATE OF ADMISSION: 07/10/2016 DATE OF CONSULTATION: 07/18/2016 PALLIATIVE CARE CONSULTATION HISTORY OF PRESENT ILLNESS: This is an 81-year-old female, pleasant, who had a very high performanc e status prior to this hospitalization, who presented with increasing respiratory [facility] and required intubation at that time. Since then she wa s admitted to the intensive care unit for a period of time. She did extremely well, was extubated a nd 4 days prior to this consultation decompensated once again, developed stridor and required reintu bation and transfer back into the intensive care unit. She has been seen by multiple consultation s ervices, including cardiology, pulmonary medicine and renal, but has not significantly improved, and once again is back on a ventilator and is receiving aggressive intervention. MEDICATIONS: Please refer to reconciliation. ALLERGIES: NO KNOWN DRUG ALLERGIES. MAJOR MEDICAL PROBLEMS IN THE PAST: Incomplete database, except the patient is status post appendect hakan, a history of coronary heart disease stage III, chronic kidney disease. SOCIAL HISTORY: Nonsmoker, nondrinker. FAMILY HISTORY: Cannot be obtained. REVIEW OF SYSTEMS: Cannot be obtained. PHYSICAL EXAMINATION: Deferred at this time per family conference. ASSESSMENT: A family conference was done with the patient's granddaughter, grandson and niece. Revi ewed her hospital course, her current medical condition, consultants that have been involved with he r care, results of any latest laboratory tests, and most importantly the patient's preadmission perf ormance status. The family made it very clear to me that she was independent prior to this hospital ization. There was a prolonged period of time that she had taken care of her who was very d ebilitated and explained to them in detail that she would never want to live in a debilitated chroni c condition requiring a long stay in the hospital, or certainly not a prolonged stay in a skilled nu rsing unit. She had specifically spoke to the family members about the specifics, including prolong ed hospital stay, as well as any type of ongoing chcf care. Specifically, the family fee ls that they have done everything to support her, that she has failed, and would not want to be on a nother prolonged period of intubation. I did explain to them that there is a possibility that she c ould be successfully extubated at some time in the future, that is still a possibility, but the fami ly maintains that they feel that she has given it her best at this time and they would not want to t kurt the chance that she would fail extubation, because they feel like she is suffering on a ventilat or. We covered all the options, the possibility that what could occur, improvement or remaining in a chronic condition with the ET tube in place for another prolonged period of time, or successful ex tubation. The family is adamant that they would like to stop this level of care. During my time in the intensive care unit they have called other family members, who agree to discontinue care. I hav e spoken to Dr. Monzon and care will be withdrawn tomorrow morning on 07/19/2016. Dictated By: AGNES MILLARD MD, LP/CHARLES Conf#: [id number] DID#: [id number]
[2016-07-18] MEDS: ATORVASTATIN 10 MG TAB PO SCH (20:26)
[2016-07-19] VITALS (67 sets, daily range): BP systolic 109–167; BP diastolic 46–72; PULSE 41–109; RESP 8–23
[2016-07-19] MEDS: IPRATROPIUM (HFA) 12.9 GM INHALER INH SCH ×2 (01:07→04:27)
[2016-07-19] MEDS: ALBUTEROL HFA 8 GM INHALER INH SCH ×2 (01:07→04:28)
[2016-07-19] MEDS: MIDAZOLAM (DRIP) 50 mg/50 mL 50 ML IV SCH (03:21)
[2016-07-19] MEDS: PANTOPRAZOLE 40 MG INJ IV SCH (05:50)
[2016-07-19] MEDS: FENTAnyl (DRIP) 1000 mcg/100mL 100 ML IV SCH (08:33)
[2016-07-19] MEDS: METOPROLOL 25 MG TAB PO SCH (09:25)
[2016-07-19] MEDS: MULTIVIT/CA CARB/B CMPLX/FA TAB PO SCH (09:25)
[2016-07-19] MEDS: ASPIRIN 81 MG TAB PO SCH (09:25)
[2016-07-19] MEDS: FERROUS SULFATE (EC) 325 MG TAB PO SCH (09:25)
[2016-07-19] MEDS: CLOPIDOGREL 75 MG TAB PO SCH (09:25)
[2016-07-19] MEDS: VANCOMYCIN 1 GM in NS 250 ML IVPB SCH (09:26)
[2016-07-19] MEDS: METHYLPREDNISOLONE 125 MG INJ IV SCH (09:26)
[2016-07-19] MEDS: ENOXAPARIN 30 MG/0.3 ML SYG SC SCH (09:43)
--- NOTE | 2016-07-19 09:59 | PN ---
Date/Time of Note Date/Time of Note DATE: 07/19/16 TIME: 09:40 Assessment/Plan VTE Prophylaxis VTE Prophylaxis Intervention: LMWH Lines/Catheters IV Catheter Type (from [facility]): Central Line Central line still needed: Yes (IV access ) Urinary Cath still in place: Yes Reason Cath still needed: other (indicate) (TATY, monitoring UOP ) Assessment/Plan Assessment/Plan 81-year-old female with: 1. Acute respiratory failure with known interstitial lung disease and previous episodes of bronchitis, admitted with RML and RLL pneumonia which probably precipitated her respiratory failure. Unfortunately had to be reintubated because of laryngeal edema and stridor, visualization of vocal cords with still some edema, on steroids and DNR, No trach per per family and wishing to terminally extubate today, appreciate assistance from Dr Truong Continue IV Abx for now and d/c on 07/23 at the latest Taper steroids when Ok with Pulmonary 2. Coronary artery disease. S/p NSTEMI, CE back to normal and Lovenox changed back to ppx dose today Appreciate recommendations from Dr Grimes 2D echo with new apical wall motion abnormality Continue medical management and palliative care 3. Hypertension, back on meds 4. Hyperlipidemia. Continue statin therapy. 5. Chronic kidney disease stage III, renal function OK post Bumex gtt this weekend, now off diuretics, on Free H20 for Hypernatremia. Moving to comfort care at this point. 6. Interstitial lung disease. Continue MDI and bronchodilators while being intubated. On steroids too for laryngeal edema 7. Gastroesophageal reflux disease. Continue proton pump inhibitors. 8. Chronic Anemia likely 2ry to CKD and chronic disease, Hb stable do far, no acute bleeding. PROPHYLAXIS: Patient already on proton pump inhibitors for GI prophylaxis and back on prophylactic dose of Lovenox. DISPOSITION: ICU care until extubated today, palliative care following and hospice consult to follow if needed. Subjective 24 Hr Interval Summary Free Text/Dictation Patient awake and alert Awaiting extubation this AM, appreciate assistance from Dr Truong DNR Exam/Review of Systems Vital Signs Vitals Vital Signs Date Time Temp Pulse Resp B/P Pulse Ox O2 Delivery O2 Flow Rate FiO2 07/19/16 08:15 54 12 99 07/19/16 08:00 137/53 07/19/16 07:50 25 07/19/16 07:30 97.8 Mechanical Ventilator Intake and Output 07/18/16 07/18/16 07/19/16 15:00 23:00 07:00 Intake Total 557.5 ml 155.0 ml 65.50 ml Output Total 225 ml 240 ml 250 ml Balance 332.5 ml -85.0 ml -184.50 ml Exam Constitutional: alert, oriented (x2 at least) Respiratory: diminished breath sounds (bases ), other (on vent ) Gastrointestinal: non-tender, soft Musculoskeletal: nl extremities to inspection Extremities: normal pulses, other (no edema, clubbing or cyanosis ) Neurological: MA[employer] II-XII intact, other (awaiting extubation ) Results Result Diagram: 07/18/1634407/18/16344 Medications Medications Current Medications Ondansetron HCl (Zofran Inj) 4 mg Q6H PRN IV NAUSEA AND/OR VOMITING; Start 07/10 at 11:30 Acetaminophen (Tylenol Liquid) 650 mg Q6H PRN PO PAIN LEVEL 1-3 OR FEVER; Start 07/10/16 at 11:30 Acetaminophen (Tylenol Supp) 650 mg Q4H PRN [place] PAIN LEVEL 1-3 OR FEVER; Start 07/10/16 at 11:30 Docusate Sodium (Colace) 100 mg Q12H PRN PO CONSTIPATION; Start 07/10/16 at 11: 30 Magnesium Hydroxide (Milk Of Mag) 30 ml DAILY PRN PO CONSTIPATION; Start at 11:30 Bisacodyl (Dulcolax Supp) 10 mg DAILY PRN [place] CONSTIPATION; Start 07/10/16 at 11: 30 Pantoprazole 40 mg 40 mg DAILY@06 IV Last administered on 07/19/16 05:50; Admin Dose 40 MG; Start 07/11/16 at 06:00 Cefepime HCl 50 ml @ 100 mls/hr Q24H IVPB Last administered on 07/18/16 08:20 ; Admin Dose 100 MLS/HR; Start 07/11/16 at 09:00 Norepinephrine/ Dextrose (Levophed/D5W) 500 ml @ 1.875 mls/ hr TITRATE IV ; Start 07/10/16 at 13:30 Aspirin (Aspirin) 81 mg DAILY PO Last administered on 07/18/16 08:20; Admin Dose 81 MG; Start 07/11/16 at 09:00 Atorvastatin Calcium (Lipitor) 10 mg QHS PO Last administered on 07/18/16 20:26 ; Admin Dose 10 MG; Start 07/10/16 at 21:00 Clopidogrel Bisulfate (plaVIX) 75 mg DAILY PO Last administered on 07/18/16 08: 20; Admin Dose 75 MG; Start 07/11/16 at 09:00 Ferrous Sulfate (Ferrous Sulfate (Ec)) 325 mg BID PO Last administered on 20:26; Admin Dose 325 MG; Start 07/10/16 at 21:00 Multivit/Ca Carb/ B Cmplx/FA/Prenat (Lindsay-Armando) 1 tab DAILY PO Last administered on 07/18/16 08:20; Admin Dose 1 TAB; Start 07/11/16 at 09:00 Metoprolol Tartrate (Lopressor) 25 mg BID PO Last administered on 07/17/16 13: 59; Admin Dose 25 MG; Start 07/11/16 at 11:00 Morphine Sulfate (morphine) 2 mg Q1H PRN IV PAIN; Start 07/11/16 at 22:00 Albuterol/ Ipratropium 3 ml 3 ml PRN HHN Last administered on 07/13/16 15:11; Admin Dose 3 ML; Start 07/13/16 at 15:00 Fentanyl 100 ml @ 2.5 mls/hr TITRATE IV Last administered on 07/19/16 08:33; Admin Dose 7.5 MLS/HR; Start 07/13/16 at 20:30 Midazolam HCl (Versed) 50 ml @ 1 mls/hr TITRATE IV Last administered on 03:21; Admin Dose 2.5 MLS/HR; Start 07/14/16 at 12:00 Methylprednisolone Sodium Succinate 60 mg 60 mg DAILY IV Last administered on 08:20; Admin Dose 60 MG; Start 07/15/16 at 09:00 Vancomycin HCl (Vancocin) 250 ml @ 125 mls/hr Q48H IVPB Last administered on 11:00; Admin Dose 125 MLS/HR; Start 07/17/16 at 10:00 Enoxaparin Sodium (Lovenox) 30 mg DAILY SC Last administered on 07/18/16 08:24 ; Admin Dose 30 MG; Start 07/18/16 at 09:00 Hydralazine HCl (Apresoline) 25 mg Q8 PO Last administered on 07/17/16t 22:54; Admin Dose 25 MG; Start 07/17/16 at 14:00 JOB GARCÍA Jul 19, 2016 09:50
--- NOTE | 2016-07-19 10:08 | CONS ---
Date/Time of Note Date/Time of Note DATE: 07/19/16 TIME: 10:05 Assessment/Plan Assessment/Plan Additional Assessment/Plan Ventilator settings; assist control of 12, tidal volume 400, PEEP of 5, 30% FiO2. Next Assessment and recommendations; 1. Patient admitted with bilateral pneumonia leading to respiratory failure. 2. Failed intubation due to element of severe vocal cord edema requiring difficult reintubation with 5.5 endotracheal tube. With persistent glottic edema present at least as of 48 hours ago. 3. Patient's family does not want to have a tracheostomy performed and they would opt for a trial of extubation if the patient does not do well they would want comfort measures. 4. Renal insufficiency. Continue current treatment for now. The patient may actually do well after extubation. Consultation Date/Type/Reason Admit Date/Time Jul 10, 2016 at 11:30 Type of Consultation: Pulmonary/critical care Referring Provider: JOB GARCÍA 24 HR Interval Summary Free Text/Dictation Patient condition remains stable. Still ventilator dependent. Patient has remained hemodynamically stable with no untoward events reported. General examination; elderly lady, awake, or intubated. Currently in no distress. Exam/Review of Systems Vital Signs Vitals Vital Signs Date Time Temp Pulse Resp B/P Pulse Ox O2 Delivery O2 Flow Rate FiO2 07/19/16 09:45 60 18 98 07/19/16 09:30 143/57 07/19/16 07:30 97.8 Mechanical Ventilator 07/19/16 05:45 25 Intake and Output 07/18/16 07/18/16 07/19/16 15:00 23:00 07:00 Intake Total 557.5 ml 155.0 ml 65.50 ml Output Total 225 ml 240 ml 250 ml Balance 332.5 ml -85.0 ml -184.50 ml Exam H EENT examination; supple neck, or intubated with 5.5 endotracheal tube. Dentition is fair. Pupils are small bilaterally. No neck masses. Supple neck. No thyromegaly. Chest examination; clear to auscultation. S1-S2 audible. No murmurs. Regular rhythm. Abdomen examination; soft, no organomegaly. Nontender. Bowel sounds audible. Extremity examination; no peripheral edema. Next NEPHROLOGY NURSE examination; patient is awake, follows simple commands moves all 4 extremities. Results Result Diagram: 07/18/16 0345 07/18/16 0345 Medications Medications Current Medications Ondansetron HCl (Zofran Inj) 4 mg Q6H PRN IV NAUSEA AND/OR VOMITING; Start 07/10 at 11:30 Acetaminophen (Tylenol Liquid) 650 mg Q6H PRN PO PAIN LEVEL 1-3 OR FEVER; Start 07/10/16 at 11:30 Acetaminophen (Tylenol Supp) 650 mg Q4H PRN [place] PAIN LEVEL 1-3 OR FEVER; Start 07/10/16 at 11:30 Docusate Sodium (Colace) 100 mg Q12H PRN PO CONSTIPATION; Start 07/10/16 at 11: 30 Magnesium Hydroxide (Milk Of Mag) 30 ml DAILY PRN PO CONSTIPATION; Start at 11:30 Bisacodyl (Dulcolax Supp) 10 mg DAILY PRN [place] CONSTIPATION; Start 07/10/16 at 11: 30 Pantoprazole 40 mg 40 mg DAILY@06 IV Last administered on 07/19/16 05:50; Admin Dose 40 MG; Start 07/11/16 at 06:00 Cefepime HCl 50 ml @ 100 mls/hr Q24H IVPB Last administered on 07/18/16 08:20 ; Admin Dose 100 MLS/HR; Start 07/11/16 at 09:00 Norepinephrine/ Dextrose (Levophed/D5W) 500 ml @ 1.875 mls/ hr TITRATE IV ; Start 07/10/16 at 13:30 Aspirin (Aspirin) 81 mg DAILY PO Last administered on 07/19/16 09:25; Admin Dose 81 MG; Start 07/11/16 at 09:00 Atorvastatin Calcium (Lipitor) 10 mg QHS PO Last administered on 07/18/16 20:26 ; Admin Dose 10 MG; Start 07/10/16 at 21:00 Clopidogrel Bisulfate (plaVIX) 75 mg DAILY PO Last administered on 07/19/16 09 :25; Admin Dose 75 MG; Start 07/11/16 at 09:00 Ferrous Sulfate (Ferrous Sulfate (Ec)) 325 mg BID PO Last administered on 09:25; Admin Dose 325 MG; Start 07/10/16 at 21:00 Multivit/Ca Carb/ B Cmplx/FA/Prenat (Lindsay-Armando) 1 tab DAILY PO Last administered on 07/19/16 09:25; Admin Dose 1 TAB; Start 07/11/16 at 09:00 Metoprolol Tartrate (Lopressor) 25 mg BID PO Last administered on 07/19/16 09: 25; Admin Dose 25 MG; Start 07/11/16 at 11:00 Morphine Sulfate (morphine) 2 mg Q1H PRN IV PAIN; Start 07/11/16 at 22:00 Albuterol/ Ipratropium 3 ml 3 ml PRN HHN Last administered on 07/13/16 15:11; Admin Dose 3 ML; Start 07/13/16 at 15:00 Fentanyl 100 ml @ 2.5 mls/hr TITRATE IV Last administered on 07/19/16 08:33; Admin Dose 7.5 MLS/HR; Start 07/13/16 at 20:30 Midazolam HCl (Versed) 50 ml @ 1 mls/hr TITRATE IV Last administered on 03:21; Admin Dose 2.5 MLS/HR; Start 07/14/16 at 12:00 Methylprednisolone Sodium Succinate 60 mg 60 mg DAILY IV Last administered on 09:26; Admin Dose 60 MG; Start 07/15/16 at 09:00 Vancomycin HCl (Vancocin) 250 ml @ 125 mls/hr Q48H IVPB Last administered on 09:26; Admin Dose 125 MLS/HR; Start 07/17/16 at 10:00 Enoxaparin Sodium (Lovenox) 30 mg DAILY SC Last administered on 07/19/16 09:43 ; Admin Dose 30 MG; Start 07/18/16 at 09:00 Hydralazine HCl (Apresoline) 25 mg Q8 PO Last administered on 07/17/16 22:54; Admin Dose 25 MG; Start 07/17/16 at 14:00 MANDO AMARO Jul 19, 2016 10:08
--- NOTE | 2016-07-19 11:06 | CONS ---
Date/Time of Note Date/Time of Note DATE: 07/19/16 TIME: 11:04 Assessment/Plan Assessment/Plan Chief Complaint/Hosp Course IMPRESSION: 1. Non-ST elevation myocardial infarction.-now troponin trended negative/ decrased EF and apical HK on echo c/w probable event 2. Abnormal electrocardiogram with anteroseptal Q's. 3. Hypotension, currently improving. 4. History of dyslipidemia. 5. Respiratory failure, status post re-intubation secondary to laryngeal edema 6. Renal failure-acute on chronic renal failure 7. Pneumonia. 8. Anemia. 9. Leukocytosis. 10.Cardiomyopathy-LVEF 35-40 by echo this admit 11.BRadycardia-S Alejandro to a low of 39 Recc: -Tele -serial ecg's -Continue hydralazine afterload reduction as tolerated only and BB -Follow HR closely -Continue ASA/plavix -Continue prophylactic lovenox dose -Continue statin -Continue abx's and f/u cx data -Follow volume status and renal function closely -trend cardiac enzymes -Wean vent as tolerated -Ongoing family discussion about direction of care Problems: Consultation Date/Type/Reason Admit Date/Time Jul 10, 2016 at 11:30 Initial Consult Date 07/12/16 Type of Consultation: Cardiology Reason for Consultation nstemi Referring Provider: JOB GARCÍA Exam/Review of Systems Vital Signs Vitals Vital Signs Date Time Temp Pulse Resp B/P Pulse Ox O2 Delivery O2 Flow Rate FiO2 07/19/16 09:45 60 18 98 07/19/16 09:30 143/57 07/19/16 08:00 25 07/19/16 07:30 97.8 Mechanical Ventilator Intake and Output 07/18/16 07/18/16 07/19/16 15:00 23:00 07:00 Intake Total 557.5 ml 155.0 ml 65.50 ml Output Total 225 ml 240 ml 250 ml Balance 332.5 ml -85.0 ml -184.50 ml Exam Review of Systems: CONSTITUTIONAL: No fevers, chills. PULMONARY: intubated CARDIOVASCULAR: No obvious chest pain/palpitations GASTROINTESTINAL: No nausea/vomiting. GENITOURINARY: No hematuria/dysuria. MUSCULOSKELETAL: No obvious myagias/arthalgias. PSYCHIATRIC: The patient denies depression. NEUROLOGIC: sedated Constitutional: other (sleeping) Psych: no complaints Head: normocephalic ENMT: intubated Neck: jvd (9 cm water), supple Respiratory: other (upper airway rhoncherous sounds) Cardiovascular: regular rate and rhythm Gastrointestinal: non-tender, soft Musculoskeletal: muscle tone (normal) Extremities: edema (none) Neurological: other (No focal deficits) Results Result Diagram: 07/18/16 0345 07/18/16 0345 Medications Medications Current Medications Ondansetron HCl (Zofran Inj) 4 mg Q6H PRN IV NAUSEA AND/OR VOMITING; Start 07/10 at 11:30 Acetaminophen (Tylenol Liquid) 650 mg Q6H PRN PO PAIN LEVEL 1-3 OR FEVER; Start 07/10/16 at 11:30 Acetaminophen (Tylenol Supp) 650 mg Q4H PRN [place] PAIN LEVEL 1-3 OR FEVER; Start 07/10/16 at 11:30 Docusate Sodium (Colace) 100 mg Q12H PRN PO CONSTIPATION; Start 07/10/16 at 11: 30 Magnesium Hydroxide (Milk Of Mag) 30 ml DAILY PRN PO CONSTIPATION; Start at 11:30 Bisacodyl (Dulcolax Supp) 10 mg DAILY PRN [place] CONSTIPATION; Start 07/10/16 at 11: 30 Pantoprazole 40 mg 40 mg DAILY@06 IV Last administered on 07/19/16 05:50; Admin Dose 40 MG; Start 07/11/16 at 06:00 Cefepime HCl 50 ml @ 100 mls/hr Q24H IVPB Last administered on 07/18/16 08:20 ; Admin Dose 100 MLS/HR; Start 07/11/16 at 09:00 Norepinephrine/ Dextrose (Levophed/D5W) 500 ml @ 1.875 mls/ hr TITRATE IV ; Start 07/10/16 at 13:30 Aspirin (Aspirin) 81 mg DAILY PO Last administered on 07/19/16 09:25; Admin Dose 81 MG; Start 07/11/16 at 09:00 Atorvastatin Calcium (Lipitor) 10 mg QHS PO Last administered on 07/18/16 20:26 ; Admin Dose 10 MG; Start 07/10/16 at 21:00 Clopidogrel Bisulfate (plaVIX) 75 mg DAILY PO Last administered on 07/19/16 09 :25; Admin Dose 75 MG; Start 07/11/16 at 09:00 Ferrous Sulfate (Ferrous Sulfate (Ec)) 325 mg BID PO Last administered on 09:25; Admin Dose 325 MG; Start 07/10/16 at 21:00 Multivit/Ca Carb/ B Cmplx/FA/Prenat (Lindsay-Armando) 1 tab DAILY PO Last administered on 07/19/16 09:25; Admin Dose 1 TAB; Start 07/11/16 at 09:00 Metoprolol Tartrate (Lopressor) 25 mg BID PO Last administered on 07/19/16 09: 25; Admin Dose 25 MG; Start 07/11/16 at 11:00 Morphine Sulfate (morphine) 2 mg Q1H PRN IV PAIN; Start 07/11/16 at 22:00 Albuterol/ Ipratropium 3 ml 3 ml PRN HHN Last administered on 07/13/16 15:11; Admin Dose 3 ML; Start 07/13/16 at 15:00 Fentanyl 100 ml @ 2.5 mls/hr TITRATE IV Last administered on 07/19/16 08:33; Admin Dose 7.5 MLS/HR; Start 07/13/16 at 20:30 Midazolam HCl (Versed) 50 ml @ 1 mls/hr TITRATE IV Last administered on 03:21; Admin Dose 2.5 MLS/HR; Start 07/14/16 at 12:00 Methylprednisolone Sodium Succinate 60 mg 60 mg DAILY IV Last administered on 09:26; Admin Dose 60 MG; Start 07/15/16 at 09:00 Vancomycin HCl (Vancocin) 250 ml @ 125 mls/hr Q48H IVPB Last administered on 09:26; Admin Dose 125 MLS/HR; Start 07/17/16 at 10:00 Enoxaparin Sodium (Lovenox) 30 mg DAILY SC Last administered on 07/19/16 09:43 ; Admin Dose 30 MG; Start 07/18/16 at 09:00 Hydralazine HCl (Apresoline) 25 mg Q8 PO Last administered on 07/17/16 22:54; Admin Dose 25 MG; Start 07/17/16 at 14:00 NATHALIE PENA Jul 19, 2016 11:06
[2016-07-19] MEDS: morphine (DRIP) 100 MG/D5W 100 ML IV SCH ×2 (12:19→23:16)
[2016-07-19] MEDS: LORAZEPAM (MDV) 60 MG in DEXTROSE 5% 30 ML IV SCH ×3 (12:24→18:22)
[2016-07-19] MEDS ORDERED: DEXAMETHASONE 4 MG/ML 20 MG in DEXTROSE 5% 50 ML IVPB ONE (13:00)
[2016-07-19] MEDS ORDERED: RACEPINEPHRINE 2.25%(NEB) 0.5 ML AMP HHN ONE (13:00)
[2016-07-20] MEDS: LORAZEPAM (MDV) 60 MG in DEXTROSE 5% 30 ML IV SCH ×3 (00:37→16:22)
[2016-07-20 06:43] LABS: CREATININE 2.34 mg/dl (0.44-1.00)
[2016-07-20 07:35] VITALS: BP 91/52; RESP 14
[2016-07-20] MEDS: morphine (DRIP) 100 MG/D5W 100 ML IV SCH (12:30)
--- NOTE | 2016-07-20 14:04 | PN ---
Date/Time of Note Date/Time of Note DATE: 07/20/16 TIME: 13:53 Assessment/Plan VTE Prophylaxis VTE Prophylaxis Intervention: SCD's Lines/Catheters IV Catheter Type (from Nrsg): Central Line Central line still needed: Yes (for IV access ) Urinary Cath still in place: Yes Reason Cath still needed: other (indicate) (comfort care ) Assessment/Plan Assessment/Plan 81-year-old female with: 1. Acute respiratory failure with known interstitial lung disease and previous episodes of bronchitis, admitted with RML and RLL pneumonia which probably precipitated her respiratory failure. Unfortunately had to be reintubated because of laryngeal edema and stridor, visualization of vocal cords with still some edema, Patient now extubated and on comfort care on Morphine and Ativan drips OFF all abx and steroids. 2. Coronary artery disease. S/p NSTEMI, CE back to normal and Lovenox changed back to ppx dose today Appreciate recommendations from Dr Grimes. Now on comfort care only 3. Hypertension. Comfort care 4. Hyperlipidemia. Comfort care 5. Chronic kidney disease stage III. Comfort care 6. Interstitial lung disease. Comfort care. 7. Chronic Anemia likely 2ry to CKD and chronic disease, Comfort care DISPOSITION: Now med surg. DNR, on comfort care, appreciate assistance and care from Dr Truong. On Morphine and Ativan drips. Subjective 24 Hr Interval Summary Free Text/Dictation Patient now on full comfort care On Morphine and Ativan gtt Unresponsive and comfortable Exam/Review of Systems Vital Signs Vitals Vital Signs Date Time Temp Pulse Resp B/P Pulse Ox O2 Delivery O2 Flow Rate FiO2 07/20/16 12:54 Nasal Cannula 4.0 07/20/16 07:35 97.6 88 14 91/52 87 07/19/16 12:55 25 Intake and Output 07/19/16 07/19/16 07/20/16 15:00 23:00 07:00 Intake Total 124.5 ml 100.5 ml 162 ml Output Total 400 ml 260 ml 400 ml Balance -275.5 ml -159.5 ml -238 ml Exam Constitutional: other (unresponsive ) Respiratory: respirations (decreased and some gargling sounds ) Cardiovascular: nl pulses, regular rate and rhythm Gastrointestinal: non-tender, soft Extremities: other (no edema, ) Neurological: unresponsive Results Result Diagram: 07/18/16 0345 07/20/16 0510 Results 24 hrs Laboratory Tests Test 07/20/16 05:10 Blood Urea Nitrogen 74 H Creatinine 2.34 H Medications Medications Current Medications Acetaminophen (Tylenol Liquid) 650 mg Q6H PRN PO PAIN LEVEL 1-3 OR FEVER; Start 07/10/16 at 11:30 Acetaminophen 650 mg 650 mg Q4H PRN [place] PAIN LEVEL 1-3 OR FEVER; Start 07/10/16 at 11:30 Morphine Sulfate/ Dextrose 100 ml @ 1 mls/hr TITRATE IV Last administered on 12:30; Admin Dose 8 MLS/HR; Start 07/19/16 at 11:30 Lorazepam/Dextrose (Ativan/D5W) 60 ml @ 1 mls/hr TITRATE IV Last administered on 07/20/16 09:25; Admin Dose 9 MLS/HR; Start 07/19/16 at 11:30 JOB GARCÍA Jul 20, 2016 14:03
--- NOTE | 2016-07-20 14:40 | CONS ---
Date/Time of Note Date/Time of Note DATE: 07/20/16 TIME: 14:38 Assessment/Plan Assessment/Plan Chief Complaint/Hosp Course IMPRESSION: 1. Non-ST elevation myocardial infarction.-now troponin trended negative/ decrased EF and apical HK on echo c/w probable event 2. Abnormal electrocardiogram with anteroseptal Q's. 3. Hypotension, currently improving. 4. History of dyslipidemia. 5. Respiratory failure, status post re-intubation secondary to laryngeal edema 6. Renal failure-acute on chronic renal failure 7. Pneumonia. 8. Anemia. 9. Leukocytosis. 10.Cardiomyopathy-LVEF 35-40 by echo this admit 11.BRadycardia-S Alejandro to a low of 39 Recc: -Now BUNDLE BREAKER -Care as indicated -Continue morphine to patient comfort -Will sign off Problems: Consultation Date/Type/Reason Admit Date/Time Jul 10, 2016 at 11:30 Initial Consult Date 07/12/16 Type of Consultation: Cardiology Reason for Consultation nstemi Referring Provider: JOB GARCÍA Exam/Review of Systems Vital Signs Vitals Vital Signs Date Time Temp Pulse Resp B/P Pulse Ox O2 Delivery O2 Flow Rate FiO2 07/20/16 12:54 Nasal Cannula 4.0 07/20/16 07:35 97.6 88 14 91/52 87 07/19/16 12:55 25 Intake and Output 07/19/16 07/19/16 07/20/16 15:00 23:00 07:00 Intake Total 124.5 ml 100.5 ml 162 ml Output Total 400 ml 260 ml 400 ml Balance -275.5 ml -159.5 ml -238 ml Exam Review of Systems: CONSTITUTIONAL: No fevers, chills. PULMONARY: No sob CARDIOVASCULAR: No obvious chest pain/palpitations GASTROINTESTINAL: No nausea/vomiting. GENITOURINARY: No hematuria/dysuria. MUSCULOSKELETAL: No obvious myagias/arthalgias. PSYCHIATRIC: The patient denies depression. NEUROLOGIC: sleeping Constitutional: other (sleeping) Psych: no complaints Head: normocephalic ENMT: mucosa pink and moist Neck: jvd, supple Respiratory: diminished breath sounds (at bases/B) Cardiovascular: regular rate and rhythm Gastrointestinal: non-tender, soft Musculoskeletal: muscle tone Extremities: edema (none) Neurological: other (No focal deficits) Results Result Diagram: 07/18/16 0345 07/20/16 0510 Results 24 hrs Laboratory Tests Test 07/20/16 05:10 Blood Urea Nitrogen 74 H Creatinine 2.34 H Medications Medications Current Medications Acetaminophen (Tylenol Liquid) 650 mg Q6H PRN PO PAIN LEVEL 1-3 OR FEVER; Start 07/10/16 at 11:30 Acetaminophen 650 mg 650 mg Q4H PRN [place] PAIN LEVEL 1-3 OR FEVER; Start 07/10/16 at 11:30 Morphine Sulfate/ Dextrose 100 ml @ 1 mls/hr TITRATE IV Last administered on 12:30; Admin Dose 8 MLS/HR; Start 07/19/16 at 11:30 Lorazepam/Dextrose (Ativan/D5W) 60 ml @ 1 mls/hr TITRATE IV Last administered on 07/20/16 09:25; Admin Dose 9 MLS/HR; Start 07/19/16 at 11:30 NATHALIE PENA Jul 20, 2016 14:40
--- NOTE | 2016-07-20 19:52 | CONS ---
Date/Time of Note Date/Time of Note DATE: 07/20/16 TIME: 19:50 Consult Date/Type/Reason Admit Date/Time Jul 10, 2016 at 11:30 Initial Consult Date Type of Consultation: Pulm Ordering Provider: JOB GARCÍA Subjective s/p extubation--> now transitioned to comfort care. Objective Vital Signs Date Time Temp Pulse Resp B/P Pulse Ox O2 Delivery O2 Flow Rate FiO2 07/20/16 12:54 Nasal Cannula 4.0 07/20/16 08:00 84 07/20/16 07:35 97.6 88 14 91/52 07/19/16 12:55 25 Intake and Output 07/19/16 07/19/16 07/20/16 15:00 23:00 07:00 Intake Total 124.5 ml 100.5 ml 162 ml Output Total 400 ml 260 ml 400 ml Balance -275.5 ml -159.5 ml -238 ml HEENT: Neck supple; no JVD; no LAD CVS: RRR, S1 and S2 CHEST: Clear ABD: Soft, NT, + BS EXT: No c/c/e Results/Medications Result Diagram: 07/18/16 0345 07/20/16 0510 Results 24 hrs Laboratory Tests Test 07/20/16 05:10 Blood Urea Nitrogen 74 H Creatinine 2.34 H Medications Current Medications Acetaminophen (Tylenol Liquid) 650 mg Q6H PRN PO PAIN LEVEL 1-3 OR FEVER; Start 07/10/16 at 11:30 Acetaminophen 650 mg 650 mg Q4H PRN [place] PAIN LEVEL 1-3 OR FEVER; Start 07/10/16 at 11:30 Morphine Sulfate/ Dextrose 100 ml @ 1 mls/hr TITRATE IV Last administered on 12:30; Admin Dose 8 MLS/HR; Start 07/19/16 at 11:30 Lorazepam/Dextrose (Ativan/D5W) 60 ml @ 1 mls/hr TITRATE IV Last administered on 07/20/16 16:22; Admin Dose 9 MLS/HR; Start 07/19/16 at 11:30 Assessment/Plan Additional Assessment/Plan IMP: 1. s/p resp failure--now transitioned to comfort care RECS: -Now comfort care -Continue morphine to patient comfort -Will sign off WILLIAM GREENWOOD MD Jul 20, 2016 19:52
--- NOTE | 2016-07-21 05:55 | PN ---
DATE: 07/19/2016 At 0800 hours and 1700 hours, the patient was seen and examined with family members and a long conve rsation was done so far as level of care, ongoing treatment. Family members including all the sibli ngs were in attendance at that time and decided to proceed with a compassionate extubation. All que stions were answered. Family is very in agreement with the fact that they do not want their m other to suffer any longer on artificial life support in spite of the fact that we explained to them there was still a chance that she may recover from this. It is their opinion further, that their m other would not want to have aggressive intervention to this level and this long. We will discontin ue care. Family members will be supported. Course and followup will be done daily. Dictated By: AGNES MILLARD MD, LP/CHARLES Conf#: [id number] DID#: [id number]
== END 2016-07-20 17:55 | disposition expired | DRG 870 ==
LOC: E/R 06:19 → ICU 11:30 → MS2 07-19 18:58
PROVIDERS: ADMIT Internal Medicine; ATTEND Internal Medicine
PROC: 5A1955Z Respiratory Ventilation, Greater than 96 Consecutive Hours (ICD-10-PCS; principal; 2016-07-10)
PROC: 0BH17EZ Insertion of Endotracheal Airway into Trachea, Via Natural or Artificial Opening (ICD-10-PCS; 2016-07-10)
PROC: 0BH17EZ Insertion of Endotracheal Airway into Trachea, Via Natural or Artificial Opening (ICD-10-PCS; 2016-07-13)
DX: A41.9 Sepsis, unspecified organism (principal); J96.01 Acute respiratory failure with hypoxia; I21.4 Non-ST elevation (NSTEMI) myocardial infarction; J84.9 Interstitial pulmonary disease, unspecified; J18.9 Pneumonia, unspecified organism; N17.9 Acute kidney failure, unspecified; E87.2 Acidosis; E11.8 Type 2 diabetes mellitus with unspecified complications; I42.9 Cardiomyopathy, unspecified; N18.3 Chronic kidney disease, stage 3 (moderate); I25.10 Atherosclerotic heart disease of native coronary artery without angina pectoris; E78.5 Hyperlipidemia, unspecified; I12.9 Hypertensive chronic kidney disease with stage 1 through stage 4 chronic kidney disease, or unspecified chronic kidney disease; R65.20 Severe sepsis without septic shock; D64.9 Anemia, unspecified; Z66 Do not resuscitate; J38.4 Edema of larynx
CPT/HCPCS: 31500; 36415; 36600; 70450; 71010; 71250; 80048; 80053; 80061; 80202; 81001; 81003; 82550; 82553; 82565; 82803; 82962; 83605; 83735; 84100; 84484; 84520; 85025; 85378; 85610; 85730; 87040; 87081; 87086; 93005; 93306; 94002; 94003; 94640; 94770; 96365; 96375; C1751; C9113; J0330; J1100; J1650; J1940; J2060; J2250; J2270; J2930; J3010; J3370; J3480; J7030; J7042